=== PATIENT | female | born 1950 | race African-American/Black ===

== ENCOUNTER 2020-09-19 13:32 | Outpatient (REF) | payer SELFPAY | END 2020-09-19 13:33 | disposition home or self-care (01) | LOC: HO.HAP 13:32 | PROVIDERS: Visit Provider Internal Medicine | DX: Z46.1 Encounter for fitting and adjustment of hearing aid (principal) | CPT/HCPCS: V5267 ==

== ENCOUNTER 2020-11-18 15:37 | Outpatient (REF) | payer SELFPAY | END 2020-11-18 15:38 | disposition home or self-care (01) | LOC: HO.HAP 15:37 | PROVIDERS: Visit Provider Internal Medicine | DX: Z46.1 Encounter for fitting and adjustment of hearing aid (principal); H90.3 Sensorineural hearing loss, bilateral | CPT/HCPCS: V5267 ==

== ENCOUNTER 2020-11-18 16:02 | Outpatient (REF) | payer MEDICAID, SELFPAY | END 2020-11-18 16:03 | disposition home or self-care (01) | LOC: HO.HAP 16:02 | PROVIDERS: Visit Provider Internal Medicine | DX: Z46.1 Encounter for fitting and adjustment of hearing aid (principal); H90.3 Sensorineural hearing loss, bilateral | CPT/HCPCS: V5266 ==

== ENCOUNTER 2021-04-30 14:00 | Outpatient (REF) | payer MEDICARE, MEDICAID, SELFPAY ==
--- NOTE | 2021-05-01 09:35 | MHC.AU.HFU ---
Hearing Instrument Follow-Up- Binaural Date of Visit: 05/01/21 Right Ear: Claims Investigator: Phonak Model: Virto V 50-312 canal Serial Number: [id number] Repair Warranty: 11/19/2020 Loss and Damage Warranty: used Battery Size: 312 Color: Brown Type of Wax Guard: CeruStop Dispensed By: [facility] Date of Fittin01/13/2018 Left Ear: Claims Investigator: Phonak Model: Virto V 50-312 canal Serial Number: [id number] Repair Warranty: 11/19/2020 Loss and Damage Warranty: used Battery Size: 312 Color: Brown Type of Wax Guard: CeruStop Dispensed By: [facility] Date of Fittin01/13/2018 Follow-Up Summary: Patient reports that her hearing aids have not been working. When she replaces the battery, they work for a little while then stop. She has been replacing batteries frequently. Hearing aids inspected. There were wax guards in the vent holes, and no wax guards over the receivers; however, no wax had gotten inside the receivers. Placed hearing aids in dryer for several minutes. Hearing aids were turning on, but sounded much weaker than expected. They were sent to [facility] for repair. Patient was loaned a pair of Blurtt B90-SP (#[id number], [id number]). Recommendations: Patient will be contacted when materials have arrived. Diagnosis Code(s): Primary Diagnosis: H90.3 Bilateral Sensorineural Hearing Loss Signature: Provider: Heather Tsang, [facility]
== END 2021-04-30 14:01 | disposition home or self-care (01) ==
LOC: HO.HAP 14:00
PROVIDERS: Visit Provider Internal Medicine
DX: Z46.1 Encounter for fitting and adjustment of hearing aid (principal); H90.3 Sensorineural hearing loss, bilateral
CPT/HCPCS: 92593

== ENCOUNTER 2021-05-29 13:00 | Outpatient (REF) | payer MEDICARE, MEDICAID, SELFPAY | END 2021-05-29 13:01 | disposition home or self-care (01) | LOC: HO.HAP 13:00 | PROVIDERS: Visit Provider Internal Medicine | DX: Z46.1 Encounter for fitting and adjustment of hearing aid (principal); H90.3 Sensorineural hearing loss, bilateral | CPT/HCPCS: V5014 ==

== ENCOUNTER 2021-11-11 08:52 | Outpatient (REF) | payer MEDICARE, MEDICAID, SELFPAY | END 2021-11-11 08:53 | disposition home or self-care (01) | LOC: HO.HAP 08:52 | PROVIDERS: Visit Provider Internal Medicine | DX: Z46.1 Encounter for fitting and adjustment of hearing aid (principal); H90.3 Sensorineural hearing loss, bilateral | CPT/HCPCS: V5266 ==

== ENCOUNTER 2022-02-11 10:32 | Outpatient (REF) | payer MEDICARE, MEDICAID, SELFPAY | END 2022-02-11 10:33 | disposition home or self-care (01) | LOC: HO.HAP 10:32 | PROVIDERS: Visit Provider Internal Medicine | DX: Z46.1 Encounter for fitting and adjustment of hearing aid (principal); H90.3 Sensorineural hearing loss, bilateral | CPT/HCPCS: V5266 ==

== ENCOUNTER 2022-05-06 13:45 | Outpatient (REF) | payer MEDICARE, MEDICAID, SELFPAY ==
--- NOTE | 2022-05-07 08:03 | MHC.AU.HFU ---
Hearing Instrument Follow-Up- Binaural Date of Visit: 05/07/22 Right Ear: Associate Professor Of Economics: Phonak Model: Virto V 50-312 canal Serial Number: [id number] Repair Warranty: 11/19/2020 Loss and Damage Warranty: used Battery Size: 312 Type of Wax Guard: CeruStop Left Ear: Associate Professor Of Economics: Phonak Model: Virto V 50-312 canal Serial Number: [id number] Repair Warranty: 11/19/2020 Loss and Damage Warranty: used Battery Size: 312 Type of Wax Guard: CeruStop Follow-Up Summary: Patient reports the battery in the left hearing aid has not been lasting long. The length is different each time, but has ranged from hours to a few days. The right hearing aid is not having this issue. Both hearing aids were inspected and cleaned. They are both amplifying normally. The left side will be sent to [employer] for repair. She was provided with a loaner ([employer] B90-SP #[id number] w/size 2 slim tube and medium power dome). Recommendations: Patient will be contacted when materials have arrived. Dispensed 42 batteries Diagnosis Code(s): H90.3 Bilateral Sensorineural Hearing Loss Signature: Provider: Heather Tsang, CCC-A
== END 2022-05-06 13:46 | disposition home or self-care (01) ==
LOC: HO.HAP 13:45
PROVIDERS: Visit Provider Internal Medicine
DX: Z46.1 Encounter for fitting and adjustment of hearing aid (principal); H90.3 Sensorineural hearing loss, bilateral
CPT/HCPCS: 92593; V5266

== ENCOUNTER 2022-05-11 12:30 | Outpatient (REF) | payer MEDICARE, MEDICAID, SELFPAY ==
--- NOTE | ~2022-05-11 | MM_ITS ---
EXAMINATION: MM SCREENING DIGITAL BREAST TOMOSYNTHESIS, BILATERAL CLINICAL INFORMATION: Screening. Asymptomatic. COMPARISON: Mammography: 04/25/2015, 04/16/2015 TECHNIQUE: Digital breast tomosynthesis is performed in both the craniocaudal and mediolateral oblique views along with computer-aided detection (CAD). Synthesized 2D images are generated from the tomosynthesis. Technically challenging exam requiring 2 technologists for positioning and imaging. Exam tailored to patient capabilities. FINDINGS: There are scattered areas of fibroglandular density (ACR BI-RADS breast composition Category b). The submitted images tailored to patient capabilities demonstrate breast tissue parenchymal pattern with borders on heterogeneously dense. There is no significant mass or architectural abnormality or abnormal calcifications. Benign coarse calcification is present posterior upper left breast and central right breast. There are also benign vascular calcifications. The skin contours are smooth. No coarsening of the José's ligaments. MM/MM tomosynthesis screening BI IMPRESSION: -No mammographic evidence of malignancy. -Technically challenging exam tailored to patient capabilities. ASSESSMENT: BI-RADS 2: Benign RECOMMENDATION: Routine annual mammography screening. This patient's information was entered into a reminder system with a target due date for their next mammogram.
== END 2022-05-11 12:31 | disposition home or self-care (01) ==
LOC: HO.MAMMO 12:30
DX: Z12.31 Encounter for screening mammogram for malignant neoplasm of breast (principal)
CPT/HCPCS: 77063; 77067

== ENCOUNTER 2022-09-16 14:13 | Outpatient (REF) | payer MEDICARE, MEDICAID, SELFPAY | END 2022-09-16 14:14 | disposition home or self-care (01) | LOC: HO.HAP 14:13 | PROVIDERS: Visit Provider Internal Medicine | DX: Z46.1 Encounter for fitting and adjustment of hearing aid (principal); H90.3 Sensorineural hearing loss, bilateral | CPT/HCPCS: 99499; V5014; V5266 ==

== ENCOUNTER 2022-09-16 14:23 | Outpatient (REF) | payer SELFPAY | END 2022-09-16 14:24 | disposition home or self-care (01) | LOC: HO.HAP 14:23 | PROVIDERS: Visit Provider Internal Medicine | DX: Z46.1 Encounter for fitting and adjustment of hearing aid (principal); H90.3 Sensorineural hearing loss, bilateral | CPT/HCPCS: V5267 ==

== ENCOUNTER 2023-01-20 14:13 | Outpatient (REF) | payer MEDICARE, MEDICAID, SELFPAY | END 2023-01-20 14:14 | disposition home or self-care (01) | LOC: HO.HAP 14:13 | PROVIDERS: Visit Provider Internal Medicine | DX: Z46.1 Encounter for fitting and adjustment of hearing aid (principal); H90.3 Sensorineural hearing loss, bilateral | CPT/HCPCS: V5266 ==

== ENCOUNTER 2023-05-11 13:23 | Outpatient (REF) | payer MEDICARE, MEDICAID, SELFPAY ==
--- NOTE | 2023-05-12 12:48 | MHC.AU.HA3 ---
Hearing Instrument Follow-Up- Binaural Date of Visit: 05/11/23 Right Ear: Make, Model, Color, Serial Number: Allison Lopez V50-312 SN: [id number] Color: Brown Investment Executive Repair Warranty: 11/19/2020 Investment Executive Loss and Damage Warranty: USED Battery Size: 312 Type of Wax Guard: CeruStop Dispensed By: [facility] Date of Fittin01/13/2018 Left Ear: Make, Model, Color, Serial Number: Allison Lopez V50-312 SN: [id number] Color: Brown Investment Executive Repair Warranty: 11/09/2022 Investment Executive Loss and Damage Warranty: USED Battery Size: 312 Type of Wax Guard: CeruStop Dispensed By: [facility] Date of Fittin01/13/2018 Follow-Up Summary: Jagjit was scheduled for a 30-minute hearing aid problem appointment. However, she was insistent that she scheduled a hearing test and was extremely upset when discussing the need for a doctor's order, different appointment type for lira time, etc. She demanded that her hearing be tested today, called her PCP office to request the doctor's order, and was not understanding to the situation. Due to a cancellation, able to perform hearing test and hearing aid consultation (see separate reports). In the meantime, she reported her hearing aids were weak/muffled. Cleaned both hearing aids. Vacuumed microphones and ran through dehumidifier. Replaced both wax guards. The right hearing aid appeared to be working well; however, the left hearing aid was weak. Increased overall volume. Jagjit noted improvement in office. Due to the age of her current pair, recommend new hearing aids versus sending for repair. Jagjit was agreeable to using the hearing aids with these settings until new hearing aids arrive. However, a few hours after she left, she called to report that she was on her way back and demanded that loaners be programmed for her as her hearing aids continue to sound muffled. Coco (HIS plate grainer apprentice) was available to program loaners at that time. Jagjit has both the loaners and her own hearing aids. Recommendations: Please contact our clinic with any questions or concerns. Diagnosis Code(s): Primary Diagnosis: H90.3 Bilateral Sensorineural Hearing Loss Signature: Provider: Au. GradyD., [facility]
--- NOTE | 2023-05-12 12:48 | MHC.AU.MED ---
Medical Clearance for Hearing Instrumentation Date: 05/11/23 Patient Name: Jagjit Salter Date of : 1950 Primary Care Provider: Alonso Monzon MD We have seen your patient on 05/11/23 and have determined that they are a candidate for amplification (See accompanying report). Specifically, they would benefit from: Hearing aid use in both ears There is a statute that addresses Medical Evaluation Requirements prior to fitting a patient with a hearing aid. According to [place] statute 265 CMR:6.03(1), (a) General. Except as provided in 265 CMR 6.03(1)(b), a hearing screener shall not sell a hearing aid unless the prospective user has presented to the hearing screener a written statement signed by a licensed physician that states that the patient's hearing loss has been medically evaluated and the patient may be considered a candidate for a hearing aid. The medical evaluation must have taken place within the preceding six months. Please note: Due to the [place] Statute referenced above, we cannot accept a signature other than that of a licensed physician. MANAGER RESORT and [place] signatures cannot be accepted. I am in agreement with the above recommendation. There is no medical contraindication for hearing instrumentation. Physician Signature Date Physician Name (Printed)
--- NOTE | 2023-05-12 12:55 | MHC.AU.HA1 ---
Hearing Aid Evaluation Date of Visit: 05/11/23 Historical Information: Description of Hearing: Right Ear: Moderate sloping to profound sensorineural hearing loss Left Ear: Moderate sloping to severe sensorineural hearing loss Current personal amplification information: Phonak Virto V50-312 ITCs fit in December 2017 Summary: Jagjit's left hearing aid is weak/muffled. Due to the age of her current pair, discussed recommendation to replace both hearing aids versus have left hearing aid repaired. Jagjit opted to stay with the same style of hearing with a 312 battery. Although right ear has poor speech discrimination ability, will continue with binaural fitting due to lack of binaural interference as evidenced through binaural speech discrimination testing and to maintain auditory stimulation of right ear. Hearing Aid Prescription: Based on the individual?s shared listening needs, communication environments, dexterity, desire for connectivity, and personal preferences, the following prescription for amplification has been made: Right ear: Make, Model, Color: Phonak Virto P70-312 ITC Color: Brown Battery Size: 312 Left ear: Left ear prescription to be same as Right Hearing Aid above: Make, Model, Color: Phonak Virto P70-312 ITC Color: Brown Battery Size: 312 Plan of Care: Patient wishes to purchase hearing aids as prescribed Action Taken/Action Needed: Earmold Impressions Taken (in hold drawer). Medical Clearance to be requested from PCP/ENT. Hearing aids will be ordered once medical clearance is received. Hearing Instrument Fitting to be scheduled when materials arrive Primary Diagnosis: H90.3 Bilateral Sensorineural Hearing Loss Signature: Provider: Rashida Rasmussen, [facility]
== END 2023-05-11 13:24 | disposition home or self-care (01) ==
LOC: HO.HAP 13:23
PROVIDERS: Visit Provider Internal Medicine
DX: Z46.1 Encounter for fitting and adjustment of hearing aid (principal); H90.3 Sensorineural hearing loss, bilateral
CPT/HCPCS: 92557; 92591; 92593; V5266; V5275

== ENCOUNTER 2023-05-11 14:34 | Outpatient (REF) | payer SELFPAY | END 2023-05-11 14:35 | disposition home or self-care (01) | LOC: HO.HAP 14:34 | PROVIDERS: Visit Provider Internal Medicine | DX: H91.93 Unspecified hearing loss, bilateral (principal) | CPT/HCPCS: V5267 ==

== ENCOUNTER 2023-07-25 15:54 | Outpatient (REF) | payer MEDICARE, MEDICAID, SELFPAY ==
--- NOTE | 2023-07-26 09:48 | MHC.AU.HA2 ---
Hearing Instrument Fitting- Adult- Binaural Date of Visit: 07/25/23 Hearing Instruments Dispensed: Right Ear: Make, Model, Color, Serial Number: Phonak Virto P70-312 ITC SN: [id number] Color: Brown Supplier Quality Engineering Manager Repair Warranty: 09/18/2026 Supplier Quality Engineering Manager Loss and Damage Warranty: 09/18/2026 [facility] Service Plan: 07/25/2024 Battery Size: 312 Type of Wax Guard: CeruStop Left Ear: Make, Model, Color, Serial Number: Phonak Virto P70-312 ITC SN: [id number] Color: Brown Supplier Quality Engineering Manager Repair Warranty: 09/18/2026 Supplier Quality Engineering Manager Loss and Damage Warranty: 09/18/2026 [facility] Service Plan: 07/25/2024 Battery Size: 312 Type of Wax Guard: CeruStop Summary of Fitting: The front office called Jagjit to reschedule her fitting appointment as the original provider need to leave due to illness. However, Jagjit would not accept being rescheduled and reported she was planning to come to the appointment regardless as the loaners are reportedly not working and she needs her new hearing aids. Jagjit arrived and was fit in between other patients. Therefore, due to time constraints, real ear measures could not be performed. Jagjit returned the loaners which were in good working order - unclear why she reported they were not working. Ran feedback analyzer on her new hearing aids. Adjusted per Jagjit's report for balance. Discussed time need to acclimate to new hearing aids. Instructed on volume control use. Did not have time to discuss bluetooth or pair to cell phone. As a long-time hearing aid user, Jagjit was comfortable and familiar with general maintenance and insertion/removal. She will call if problems with fit or sound quality arise. Recommendations: Please call our clinic with any questions or concerns. Diagnosis Code(s): Primary Diagnosis: H90.3 Bilateral Sensorineural Hearing Loss Signature: Provider: Rashida Rasmussen, [facility]
== END 2023-07-25 15:55 | disposition home or self-care (01) ==
LOC: HO.HAP 15:54
PROVIDERS: Visit Provider Internal Medicine
DX: Z46.1 Encounter for fitting and adjustment of hearing aid (principal); H90.3 Sensorineural hearing loss, bilateral
CPT/HCPCS: V5011; V5160; V5259

== ENCOUNTER 2023-10-05 13:47 | Outpatient (REF) | payer MEDICARE, MEDICAID, SELFPAY | END 2023-10-05 13:48 | disposition home or self-care (01) | LOC: HO.HAP 13:47 | PROVIDERS: Visit Provider Internal Medicine | DX: Z46.1 Encounter for fitting and adjustment of hearing aid (principal); H90.3 Sensorineural hearing loss, bilateral | CPT/HCPCS: V5266 ==

== ENCOUNTER 2023-10-05 15:22 | Outpatient (REF) | payer SELFPAY | END 2023-10-05 15:23 | disposition home or self-care (01) | LOC: HO.HAP 15:22 | PROVIDERS: Visit Provider Internal Medicine | DX: Z46.1 Encounter for fitting and adjustment of hearing aid (principal); H90.3 Sensorineural hearing loss, bilateral | CPT/HCPCS: V5267 ==

== ENCOUNTER 2024-01-05 13:34 | Outpatient (REF) | payer MEDICARE, MEDICAID, SELFPAY | END 2024-01-05 13:35 | disposition home or self-care (01) | LOC: HO.HAP 13:34 | PROVIDERS: Visit Provider Internal Medicine | DX: Z46.1 Encounter for fitting and adjustment of hearing aid (principal); H90.3 Sensorineural hearing loss, bilateral | CPT/HCPCS: V5266 ==

== ENCOUNTER 2024-02-03 14:12 | Outpatient (REF) | payer MEDICARE, MEDICAID, SELFPAY | END 2024-02-03 14:13 | disposition home or self-care (01) | LOC: HO.HAP 14:12 | PROVIDERS: Visit Provider Internal Medicine | DX: Z13.89 Encounter for screening for other disorder (principal) ==

== ENCOUNTER 2024-03-15 13:51 | Outpatient (REF) | payer SELFPAY | END 2024-03-15 13:52 | disposition home or self-care (01) | LOC: HO.HAP 13:51 | PROVIDERS: Visit Provider Internal Medicine | DX: Z46.1 Encounter for fitting and adjustment of hearing aid (principal); H90.3 Sensorineural hearing loss, bilateral | CPT/HCPCS: V5267 ==

== ENCOUNTER 2024-09-18 12:18 | Outpatient (REF) | payer MEDICARE, MEDICAID, SELFPAY ==
--- OUTSIDE RECORDS SUMMARY | 2024-09-18 13:12 | XMS_ITS | Encounter Summary ---
Author Organization [facility] Address [address] [place] [address] Care Team Providers Care Truckman Name Role Phone Unavailable Primary Care Provider Unavailabl e Reason for Visit * Reason Comments Dental Pain PAIN WITH DENTURE Encounter Details Date Type Department Care Team (Late st Contact Info) Description 09/05/2024 1:20 PM EST Office Visit [facility] [address] [place] [phone] DuncanAlondra [address] [place] [address] Encounter for dental examination (Primary Dx) Social History Tobacco Use Types Packs/Day Years Used Date Smoking Tobacco: Never Assessed Comments Unknown Sex and Gender Information Value Date Recorded Sex Assigned at Not on file Legal Sex Female 8:12 AM PDT Gender Identity Not on file Sexual Orientation Not on file COVID-19 Exposure Response Date Recorded In the last 10 days, have yo u been in contact with someone who was confirmed or suspected to have Coronavirus/COVID-19? No / Unsure 09/05/2024 12:56 PM EST documented as of this encounter Progress Notes * Alondra Song - 09/05/2024 2:14 PM EST Limited Exam SUBJECTIVE: Jagjit Salter, 74 year old female, presents alone pt only had discussion with Dr French about previous diagnosis Bone Drier Operator: No Chief Complaint Patient presents with Dental Pain PAIN WITH DENTURE Description of pain: none OBJECTIVE: RMHx: NO CHANGE Vitals: There were no vitals filed for this visit. Dx: No diagnosis found. Dx Details (Clinical Decision-Making): DR MARTINES NEW DENTURE PT REFUSED, DR MARTINES MTH RINSE PT REFUSED, DR MCWILLIAMS PT NEEDS BIOPSY PT MISSED [address] BE, DR MARTINES PT FOLLOW THUR WITH BIOPSY UPPER RIGHT PLAN:BIOPSY Informed Consent/PARQ (Procedure, Alternatives, Risks, Questions): Discussed limited exam findings and treatment needs, questions answered. Patient confirms informed consent, verbalizes understandingof limited exam findings and treatment plan. Pt informed today's exam was a limited exam, and comprehensive exam was not done today. Treatment needs may exist in other areas which were not examined today. Advised patient seek comprehensive care and return for evaluation of other areas as soon as possible. Dental procedures in this visit There are no dental procedures in this visit. Treatment Completed: BIOPSY Referral: No orders of the following type(s) were placed in this encounter: Referral. Rx: No orders of the defined types were placed in this encounter. Behavior: Excellent DA: ANUP NV: BIOPSY documented in this encounter Plan of Treatment Upcoming Encounters Date Type Department Care Team (Late st Contact Info) Description 09/21/2024 3:00 PM EST Office Visit [facility] [address] [place] [phone] [place] [address] [place] [phone] 10/24/2024 4:00 PM EST Office Visit [facility] [address] [place] [phone] Saji Fernández DDS [address] [place] [phone] Scheduled Orders Name Type Priority Associated Diagnoses Order Schedule CASE PRESENTATION SUBS DTL & EXTENSIVE TX PLN Dental Procedures Routine 1 Occurrences starting 09/05/2024 documented as of this encounter Procedures Procedure Name Priority Date/Time Associated Diagnosis Comments CASE PRESENTATION SUBS DTL & EXTENSIVE TX PLN Routine 09/05/2024 1:20 PM EST Encounter for dental examination documented in this encounter Visit Diagnoses Diagnosis Encounter for dental examination- Primary Dental examination documented in this encounter
--- OUTSIDE RECORDS SUMMARY | 2024-09-18 13:12 | XMS_ITS | Clinical Summary ---
Author Organization [facility] Address [address] [place] [address] Care Team Providers Care Scientific Advisor Name Role Phone Unavailable Primary Care Provider Unavailabl e Source Comments PLEASE NOTE, if this patient is a minor, it may be UNLAWFUL to discuss sensitive information that is contained in these records (such as FAMILY PLANNING, MENTAL HEALTH or SUBSTANCE ABUSE) with the minor patient's parent or other person without the patient's specific authorization.[facility] Medications chlorhexidine (PERIDEX) 0.12 % solutionIndicati ons:Encounter for dental examination Swish and spit 15 mL 2 (two) times daily for 14 days 420 mL 08/31/2024 Active Problems No known active problems Encounters Date Type Department Care Team Description 09/05/2024 1:20 PM EST Office Visit [facility] [place] [phone] Alondra Song Encounter for dental examination (Primary Dx) 09/05/2024 Travel 08/31/2024 Dental Interim Note [facility] [address] [place] [phone] Etienne Mehta DDS Encounter for dental examination (Primary Dx) 08/29/2024 1:00 PM EST Office Visit [facility] [place] [phone] Amaury Ordoñez DDS Ill-fitting dentures (Primary Dx) 08/29/2024 Travel from Last 3 Months Social History Tobacco Use Types Packs/Day Years Used Date Smoking Tobacco: Never Assessed Comments Unknown Sex and Gender Information Value Date Recorded Sex Assigned at Not on file Legal Sex Female 8:12 AM PDT Gender Identity Not on file Sexual Orientation Not on file COVID-19 Exposure Response Date Recorded In the last 10 days, have latricia u been in contact with someone who was confirmed or suspected to have Coronavirus/COVID-19? No / Unsure 09/05/2024 12:56 PM EST Last Filed Vital Signs Vital Sign Reading Time Taken Comments Blood Pressure 131/80 08/29/2024 1:17 PM EST Pulse 63 08/29/2024 1:17 PM EST Temperature - - Respiratory Rate - - Oxygen Saturation - - Inhaled Oxygen Concentration - - Weight - - Height - - Body Mass Index - - Plan of Treatment Upcoming Encounters Date Type Department Care Team (Late st Contact Info) Description 09/21/2024 3:00 PM EST Office Visit [facility] [address] [place] [phone] Pop [place] [address] [place] [address] 10/24/2024 4:00 PM EST Office Visit [facility] [address] [place] [phone] Saji Fernández DDS [address] [place] [address] Health Maintenance Due Date Last Done Comments Hepatitis C Screening 1950 Lipid Screening 1950 Tobacco Screening 1950 Medicare Annual Wellness Visit 1969 Imm-DTaP/Tdap/Td (1 - Tdap) 1970 Breast Cancer Screening (Mammogram) 1991 CT Colonography 1996 Colonoscopy 1996 Colorectal Cancer Screening 1996 FIT/gFOBT 1996 Fecal DNA 1996 Flexible Sigmoidoscopy 1996 Imm-Pneumococcal 65+ (1 of 1 - PCV) 2001 Imm-Zoster, Recombinant (1 of 2) 2001 Bone Density Screening 2016 Falls Prevention 2016 [id number] (1 - 2023- season) 2024 Imm-Influenza (#1) 2024 Alcohol and Drug Screen 08/22/2024 Depression Annual Screen 08/22/2024 Hypertension Screening (#1) 08/29/2025 Procedures Procedure Name Priority Date/Time Associated Diagnosis Comments CASE PRESENTATION SUBS DTL & EXTENSIVE TX PLN Routine 09/05/2024 1:20 PM EST Encounter for dental examination LIMITED ORAL EVALUATION - PROBLEM FOCUSED Routine 08/29/2024 1:00 PM EST Ill-fitting dentures from Last 3 Months Insurance [place]
--- OUTSIDE RECORDS SUMMARY | 2024-09-18 13:12 | XMS_ITS | Encounter Summary ---
Author Organization [facility] Address [address] [place] [address] Care Team Providers Care Business Process Engineer Name Role Phone Yo Chambers MD Primary Care Provider [phone] Encounter Details Date Type Department Care Team (Late st Contact Info) Description 08/17/2024 Lab Requisition [facility] Lab [address] [facility] [employer] [place] [address] Yo Chambers MD [address] [place] [address] Unspecified atrial fibrillation (CMS/HCC) Social History Tobacco Use Types Packs/Day Years Used Date Smoking Tobacco: Never Smokeless Tobacco: Never Alcohol Use Standard Drinks/Week Comments No 0 (1 standard drink = 0.6 oz pur e alcohol) Sex and Gender Information Value Date Recorded Sex Assigned at Not on file Gender Identity Not on file Sexual Orientation Not on file documented as of this encounter Plan of Treatment Not on file documented as of this encounter Procedures Procedure Name Priority Date/Time Associated Diagnosis Comments PROTHROMBIN TIME WITH INR Routine 08/20/2024 6:33 AM EST Unspecified atrial fibrillation (CMS/HCC) documented in this encounter Results * (ABNORMAL) Prothrombin time with INR (08/20/2024 6:33 AM EST) Protime 26.8(H) 10.6 - 13.9 sec LAB COAGULATION METHOD 08/20/2024 10:18 AM EST [facility] INR 2.1 LAB COAGULATION METHOD 08/20/2024 10:18 AM EST [facility] Blood Venous blood specimen / Unknown Venipuncture / Unknown 08/20/2024 6:33 AM EST 08/20/2024 9:55 AM EST Yo Chambers MD LAB BLOOD ORDERABL ES [facility] [address] [place] [address], documented in this encounter Visit Diagnoses Diagnosis Unspecified atrial fibrillation (CMS/HCC) documented in this encounter Care Teams Business Process Engineer Relationship Specialty Start Date End Date Yo Chambers MD [address] [place] [address] PCP - General 05/19/21 documented as of this encounter
--- OUTSIDE RECORDS SUMMARY | 2024-09-18 13:12 | XMS_ITS | Encounter Summary ---
Author Organization [facility] Address [address] [place] [address] Care Team Providers Care Steaming Machine Operator Name Role Phone Unavailable Primary Care Provider Unavailabl e Encounter Details Date Type Department Care Team (Latest Contact Info) Description 09/05/2024 Travel Social History Tobacco Use Types Packs/Day Years [...] PM EST documented as of this encounter Plan of Treatment Upcoming Encounters Date Type Department Care Team (Late st Contact Info) Description 09/21/2024 3:00 PM EST Office Visit [facility] [address] [place] [phone] Pop [place] [address] [place] [address] 10/24/2024 4:00 PM EST Office Visit [facility] [address] [place] [phone] EscobarSaji Silver DDS [address] [place] [address] documented as of this encounter Visit Diagnoses Not on filedocumented in this encounter
--- OUTSIDE RECORDS SUMMARY | 2024-09-18 13:12 | XMS_ITS | Encounter Summary ---
Author Organization [facility] Address [address] [place] [address] Care Team Providers Care Nurse Consultant Name Role Phone Unavailable Primary Care Provider Unavailabl e Encounter Details Date Type Department Care Team (Latest Contact Info) Description 08/29/2024 Travel Social History Tobacco Use Types Packs/Day [...] suspected to have Coronavirus/COVID-19? No / Unsure 08/29/2024 1:00 PM EST documented as of this encounter Plan of Treatment Upcoming Encounters Date Type Department Care Team (Late st Contact Info) Description 09/21/2024 3:00 PM EST Office Visit [facility] Dental [address] [place] [phone] Pop [place] [address] [place] [address] 10/24/2024 4:00 PM EST Office Visit [facility] Dental [address] [place] [phone] EscobarSaji Silver DDS [address] [place] [address] documented as of this encounter Visit Diagnoses Not on filedocumented in this encounter
--- OUTSIDE RECORDS SUMMARY | 2024-09-18 13:12 | XMS_ITS | Encounter Summary ---
Author Organization [facility] Address [address] [place] [address] Care Team Providers Care Commodities Broker Name Role Phone Yo Chambers MD Primary Care Provider +1- [phone] Encounter Details Date Type Department Care Team (Late st Contact Info) Description 09/15/2024 Lab Requisition [facility] - Main Lab [address] [facility] [employer] [address] Yo Chambers MD [address] [place] [address] Unspecified atrial fibrillation (CMS/HCC) Social History Tobacco [...] Diagnosis Comments PROTHROMBIN TIME WITH INR Routine 09/17/2024 5:34 AM EST Unspecified atrial fibrillation (CMS/HCC) documented in this encounter Results * (ABNORMAL) Prothrombin time with INR (09/17/2024 5:34 AM EST) Protime 23.9(H) 10.6 - 13.9 sec LAB COAGULATION METHOD 09/17/2024 11:17 AM EST [facility] LAB INR 1.9 LAB COAGULATION METHOD 09/17/2024 11:17 AM EST [facility] LAB Blood Venous blood specimen / Unknown Venipuncture / Unknown 09/17/2024 5:34 AM EST 09/17/2024 10:39 AM EST Yo Chambers MD LAB BLOOD ORDERABL ES [facility] ([facility]) [facility] LAB [address] [place] [address], documented in this encounter Visit Diagnoses Diagnosis Unspecified atrial fibrillation (CMS/HCC) documented in this encounter Care Teams Commodities Broker Relationship Specialty Start Date End Date Yo Chambers MD [address] [place] [address] PCP - General 05/19/21 documented as of this encounter
--- OUTSIDE RECORDS SUMMARY | 2024-09-18 13:12 | XMS_ITS | Encounter Summary ---
Author Organization [facility] Address [address] [place] [address] Care Team Providers Care Casting Wheel Operator Helper Name Role Phone Yo Chambers MD Primary Care Provider +1- [phone] Encounter Details Date Type Department Care Team (Late st Contact Info) Description 08/11/2024 Lab Requisition [facility] - Main Lab 299 [facility] [employer] [address] Yo Chambers MD [address] [place] [address] Unspecified atrial fibrillation (CMS/HCC) Social History Tobacco [...] Diagnosis Comments PROTHROMBIN TIME WITH INR Routine 08/13/2024 6:11 AM EST Unspecified atrial fibrillation (CMS/HCC) documented in this encounter Results * (ABNORMAL) Prothrombin time with INR (08/13/2024 6:11 AM EST) Protime 23.8(H) 10.6 - 13.9 sec LAB COAGULATION METHOD 08/13/2024 12:17 PM EST [facility] LAB INR 1.9 LAB COAGULATION METHOD 08/13/2024 12:17 PM EST [facility] LAB Blood Venous blood specimen / Unknown Venipuncture / Unknown 08/13/2024 6:11 AM EST 08/13/2024 11:54 AM EST Yo Chambers MD LAB BLOOD ORDERABL ES [facility] ([facility]) [facility] LAB [address] [place] [address], documented in this encounter Visit Diagnoses Diagnosis Unspecified atrial fibrillation (CMS/HCC) documented in this encounter Care Teams Casting Wheel Operator Helper Relationship Specialty Start Date End Date Yo Chambers MD [address] [place] [address] PCP - General 05/19/21 documented as of this encounter
--- OUTSIDE RECORDS SUMMARY | 2024-09-18 13:12 | XMS_ITS | Encounter Summary ---
Author Organization [facility] Address [address] [place] [address] Care Team Providers Care Substation Operator Conversion Name Role Phone Yo Chambers MD Primary Care Provider +1- [phone] Encounter Details Date Type Department Care Team (Late st Contact Info) Description 07/21/2024 Lab Requisition [facility] - Main Lab [address] [place] [address] Yo Chambers MD [address] [place] [address] Chronic atrial fibrillation, unspecified (CMS/HCC); Unspecified atrial fibrillation (CMS/HCC) Social History Tobacco [...] Diagnosis Comments PROTHROMBIN TIME WITH INR Routine 07/23/2024 6:45 AM EST Chronic atrial fibrillation, unspecified (CMS/HCC) Unspecified atrial fibrillation (CMS/HCC) documented in this encounter Results * (ABNORMAL) Prothrombin time with INR (07/23/2024 6:45 AM EST) Protime 25.6(H) 10.6 - 13.9 sec LAB COAGULATION METHOD 07/23/2024 12:11 PM EST [facility] INR 2.0 LAB COAGULATION METHOD 07/23/2024 12:11 PM EST [facility] LAB Blood Venous blood specimen / Unknown Venipuncture / Unknown 07/23/2024 6:45 AM EST 07/23/2024 10:59 AM EST Yo Chambers MD LAB BLOOD ORDERABL ES [facility] LAB [address] [place], [place] [address] [phone] documented in this encounter Visit Diagnoses Diagnosis Chronic atrial fibrillation, unspecified (CMS/HCC) Unspecified atrial fibrillation (CMS/HCC) documented in this encounter Care Teams Substation Operator Conversion Relationship Specialty Start Date End Date Yo Chambers MD [address] [place] [address] PCP - General 05/19/21 documented as of this encounter
--- OUTSIDE RECORDS SUMMARY | 2024-09-18 13:12 | XMS_ITS | Encounter Summary ---
Author Organization [facility] Address [address] [place] [address] Care Team Providers Care Studio Associate Name Role Phone Unavailable Primary Care Provider Unavailabl e Encounter Details Date Type Department Care Team (Late st Contact Info) Description 08/31/2024 Dental Interim Note [place] [address] [place] [phone] Etienne Mehta, [facility] [address] [place] [address] Encounter for dental examination (Primary Dx) Social [...] 3:00 PM EST Office Visit [facility] [address] [place] [address] [place] [address] [place] [address] 10/24/2024 4:00 PM EST Office Visit [facility] [place] [phone] Saji Fernández, DDS [address] [place] [address] documented as of this encounter Visit Diagnoses Diagnosis Encounter for dental examination- Primary Dental examination documented in this encounter
--- OUTSIDE RECORDS SUMMARY | 2024-09-18 13:12 | XMS_ITS | Encounter Summary ---
Author Organization [facility] Address [address] [place] [address] Care Team Providers Care Supervisor [employer] Name Role Phone Yo Chambers MD Primary Care Provider +1- [phone] Encounter Details Date Type Department Care Team (Late st Contact Info) Description 07/07/2024 Lab Requisition [facility] - Main Lab [address] [facility] [place] [address] Yo Chambers MD [address] [place] [address] Hyperlipidemia, unspecified; Chronic kidney disease, stage 3 unspecified (CMS/HCC); Unspecified atrial fibrillation (CMS/HCC) Social [...] Diagnosis Comments PROTHROMBIN TIME WITH INR Routine 07/09/2024 6:04 AM EST Hyperlipidemia, unspecified Chronic kidney disease, stage 3 unspecified (CMS/HCC) Unspecified atrial fibrillation (CMS/HCC) COMPLETE BLOOD COUNT Routine 07/09/2024 6:04 AM EST Hyperlipidemia, unspecified Chronic kidney disease, stage 3 unspecified (CMS/HCC) Unspecified atrial fibrillation (CMS/HCC) THYROID STIMULATING HORMONE Routine 07/09/2024 6:04 AM EST Hyperlipidemia, unspecified Chronic kidney disease, stage 3 unspecified (CMS/HCC) Unspecified atrial fibrillation (CMS/HCC) COMPREHENSIVE METABOLIC PANEL Routine 07/09/2024 6:04 AM EST Hyperlipidemia, unspecified Chronic kidney disease, stage 3 unspecified (CMS/HCC) Unspecified atrial fibrillation (CMS/HCC) documented in this encounter Results * Thyroid stimulating hormone (07/09/2024 6:04 AM EST) TSH 1.92 0.40 - 4.00 mcIU/mL LAB CHEMISTRY METHOD 07/09/2024 11:55 AM EST [facility] LAB Blood Venous blood specimen / Unknown Venipuncture / Unknown 07/09/2024 6:04 AM EST 07/09/2024 10:34 AM EST Yo Chambers MD LAB BLOOD ORDERABL ES [facility] LAB [address] [place] [address], * (ABNORMAL) Comprehensive metabolic panel (07/09/2024 6:04 AM EST) Pathologist [facility] Sodium 143 133 - 145 mmol/L LAB CHEMISTRY METHOD 07/09/2024 1:06 PM [facility] Potassium 4.1 3.5 - 5.5 mmol/L LAB CHEMISTRY METHOD 07/09/2024 1:06 PM [facility] Chloride 110 96 - 110 mmol/L LAB CHEMISTRY METHOD 07/09/2024 1:06 PM [facility] CO2 23 21 - 32 mmol/L LAB CHEMISTRY METHOD 07/09/2024 1:06 PM [facility] Anion Gap 10 3 - 11 LAB CHEMISTRY METHOD 07/09/2024 1:06 PM [facility] Glucose 117(H) 70 - 100 mg/dL LAB CHEMISTRY METHOD 07/09/2024 1:06 PM [facility] BUN 11 5 - 25 mg/dL LAB CHEMISTRY METHOD 07/09/2024 1:06 PM [facility] Creatinine 0.95 0.50 - 1.10 mg/dL LAB CHEMISTRY METHOD 07/09/2024 1:06 PM [facility] eGFR 63 >=60 mL/min/1. 73m2 LAB CHEMISTRY METHOD 07/09/2024 1:06 PM [facility] LAB Comment:Calculation based on the??Chronic Kidney Disease Epidemiology Collaboration (CKD-EPI) equation refit??without adjustment for race. BUN/Creatinine Ratio 11.6 LAB CHEMISTRY METHOD 07/09/2024 1:06 PM [facility] Calcium 8.7 8.5 - 10.5 mg/dL LAB CHEMISTRY METHOD 07/09/2024 1:06 PM [facility] AST (SGOT) 20 10 - 42 unit/L LAB CHEMISTRY METHOD 07/09/2024 1:06 PM [facility] ALT (SGPT) 27 10 - 60 unit/L LAB CHEMISTRY METHOD 07/09/2024 1:06 PM [facility] Alkaline Phosphatase 77 42 - 121 unit/L LAB CHEMISTRY METHOD 07/09/2024 1:06 PM [facility] Total Protein 5.6(L) 6.0 - 8.0 g/dL LAB CHEMISTRY METHOD 07/09/2024 1:06 PM [facility] Albumin 2.8(L) 3.2 - 5.0 g/dL LAB CHEMISTRY METHOD 07/09/2024 1:06 PM [facility] Total Bilirubin 0.3 0.0 - 1.4 mg/dL LAB CHEMISTRY METHOD 07/09/2024 1:06 PM [facility] Blood Venous blood specimen / Unknown Venipuncture / Unknown 07/09/2024 6:04 AM EST 07/09/2024 10:34 AM EST Yo Chambers MD LAB BLOOD ORDERABL ES [facility] LAB [address] [place] [address], * (ABNORMAL) Complete blood count (07/09/2024 6:04 AM EST) [facility] Signature WBC 5.0 4.8 - 10.8 K/mcL LAB HEMETOLOGY METHOD 07/09/2024 11:27 AM [facility] RBC 3.60(L) 3.80 - 4.80 M/mcL LAB HEMETOLOGY METHOD 07/09/2024 11:27 AM [facility] Hemoglobin 11.4(L) 11.5 - 16.0 g/dL LAB HEMETOLOGY METHOD 07/09/2024 11:27 AM [facility] Hematocrit 35.4 35.0 - 47.0 % LAB HEMETOLOGY METHOD 07/09/2024 11:27 AM [facility] MCV 98.3(H) 79.0 - 98.0 FL LAB HEMETOLOGY METHOD 07/09/2024 11:27 AM [facility] MCH 31.7 27.0 - 32.0 pcg LAB HEMETOLOGY METHOD 07/09/2024 11:27 AM [facility] MCHC 32.2 32.0 - 37.0 g/dL LAB HEMETOLOGY METHOD 07/09/2024 11:27 AM EST [facility] RDW 14.6 11.0 - 15.0 % LAB HEMETOLOGY METHOD 07/09/2024 11:27 AM [facility] Platelets 228 130 - 400 K/mcL LAB HEMETOLOGY METHOD 07/09/2024 11:27 AM [facility] MPV 11.1(H) 7.0 - 11.0 FL LAB HEMETOLOGY METHOD 07/09/2024 11:27 AM [facility] NRBC 0.0 <1.0 % LAB HEMETOLOGY METHOD 07/09/2024 11:27 AM EST [facility] LAB NRBC Absolute 0.00 <0.10 K/mcL LAB HEMETOLOGY METHOD 07/09/2024 11:27 AM EST [facility] LAB Blood Venous blood specimen / Unknown Venipuncture / Unknown 07/09/2024 6:04 AM EST 07/09/2024 10:40 AM EST Yo Chambers MD LAB BLOOD ORDERABL ES Performing Organization Address City/[facility]/ZIP Co de Phone Number [facility] [address] [place] [address], * (ABNORMAL) Prothrombin time with INR (07/09/2024 6:04 AM EST) Protime 18.6(H) 10.6 - 13.9 sec LAB COAGULATION METHOD 07/09/2024 11:32 AM EST [facility] INR 1.5 LAB COAGULATION METHOD 07/09/2024 11:32 AM EST [facility] Blood Venous blood specimen / Unknown Venipuncture / Unknown 07/09/2024 6:04 AM EST 07/09/2024 10:34 AM EST Yo Chambers MD LAB BLOOD ORDERABL ES [facility] [address] [place] [address], [place] [phone] documented in this encounter Visit Diagnoses Diagnosis Hyperlipidemia, unspecified Chronic kidney disease, stage 3 unspecified (CMS/HCC) Unspecified atrial fibrillation (CMS/HCC) documented in this encounter Care Teams Supervisor [employer] Relationship Specialty Start Date End Date Yo Chambers MD [address] [place] [phone] PCP - General 05/19/21 documented as of this encounter
--- OUTSIDE RECORDS SUMMARY | 2024-09-18 13:12 | XMS_ITS | Clinical Summary ---
Author Organization [address] Address [address] [place] [address] Phone Care Team Providers Care Oyster Culler Name Role Phone Yo Chambers MD Primary Care Provider +1- [phone] Medications No known medications Encounters Date Type Department Care Team Description 09/15/2024 Lab Requisition [facility] Lab [address] [place] [phone] Yo Chambers MD Unspecified atrial fibrillation (CMS/HCC) 09/12/2024 Lab Requisition [facility] Lab [address] [place] [phone] Yo Chambers MD Unspecified atrial fibrillation (CMS/HCC) 09/08/2024 Lab Requisition [facility] Lab [address] [place] [phone] Yo Chambers MD Unspecified atrial fibrillation (CMS/HCC) 08/31/2024 Lab Requisition [facility] Lab [address] [place] [phone] Yo Chambers MD Unspecified atrial fibrillation (CMS/HCC) 08/24/2024 Lab Requisition [facility] Lab [address] [place] [phone] Yo Chambers MD Unspecified atrial fibrillation (CMS/HCC) 08/17/2024 Lab Requisition [facility] Lab [address] [place] [phone] Yo Chambers MD Unspecified atrial fibrillation (CMS/HCC) 08/11/2024 Lab Requisition [facility] Lab [address] [place] [phone] Yo Chambers MD Unspecified atrial fibrillation (CMS/HCC) 08/03/2024 Lab Requisition [facility] Lab [address] [place] [phone] Yo Chambers MD Unspecified atrial fibrillation (CMS/HCC) 08/01/2024 Telephone [facility] Cardiology [address] [place] [address] Quang Barrios MD Foot Swelling (swelling) 07/28/2024 Lab Requisition [facility] Lab [address] [place] [phone] Yo Chambers MD Unspecified atrial fibrillation (CMS/HCC) 07/21/2024 Lab Requisition [facility] Lab [address] [place] [phone] Yo Chambers MD Chronic atrial fibrillation, unspecified (CMS/HCC); Unspecified atrial fibrillation (CMS/HCC) 07/13/2024 Lab Requisition [facility] Lab [address] [place] [phone] Yo Chambers MD Unspecified atrial fibrillation (CMS/HCC) 07/07/2024 Lab Requisition [facility] Lab [address] [place] [phone] Yo Chambers MD Hyperlipidemia, unspecified; Chronic kidney disease, stage 3 unspecified (CMS/HCC); Unspecified atrial fibrillation (CMS/HCC) 06/29/2024 Lab Requisition [facility] Main Lab [address] [place] [phone] Yo Chambers MD Unspecified atrial fibrillation (CMS/HCC) 06/29/2024 Lab Requisition [facility] Lab [address] [place] [address] Yo Chambers MD Unspecified atrial fibrillation (CMS/HCC) 06/23/2024 Lab Requisition [facility] Lab [address] [place] [address] Yo Chambers MD Chronic atrial fibrillation, unspecified (CMS/HCC); Unspecified atrial fibrillation (CMS/HCC) from Last 3 Months Social History Tobacco Use Types Packs/Day Years Used Date Smoking Tobacco: Never Smokeless Tobacco: Never Alcohol Use Standard Drinks/Week Comments No 0 (1 standard drink = 0.6 oz pur e alcohol) Sex and Gender Information Value Date Recorded Sex Assigned at Not on file Gender Identity Not on file Sexual Orientation Not on file Obstetrics History Last Filed Vital Signs Vital Sign Reading Time Taken Comments Blood Pressure 120/70 12/02/2023 2:24 PM EDT Sit ting R Arm Pulse 60 12/02/2023 2:24 PM EDT Temperature - - Respiratory Rate - - Oxygen Saturation - - Inhaled Oxygen Concentration - - Weight 127 kg (279 lb) 11/30/2022 3:49 PM EDT Height 170.2 cm (5' 7 ) 11/30/2022 3:49 PM EDT Body Mass Index 43.7 11/30/2022 3:49 PM EDT Plan of Treatment Health Maintenance Due Date Last Done Comments Breast Cancer Screening 1950 Pneumococcal Vaccine: 65+ Years (1 of 2 - PCV) 1957 Zoster Vaccines (1 of 2) 2001 RSV Immunization Patients 60 + Years Old (1 - Risk 60-74 years 1-dose series) 2011 DTaP,Tdap,and Td Vaccines (2 - Tdap) 07/28/2021 07/28/2011 Cholesterol Screening (Lipid Panel) 07/31/2022 Colorectal Cancer Screening: Colonoscopy 07/31/2022 Depression Screening 07/31/2022 Falls Risk Assessment 07/31/2022 Hepatitis C Screening 07/31/2022 Medicare Annual Wellness Visit 07/31/2022 Osteoporosis Screening (Bone Density Screening) 07/31/2022 Social Influencers of Health Screening 07/31/2022 COVID-19 Vaccine (2023-2 5 season) 2024 Influenza Vaccine (#1) 2024 3, 04/13/2012, 05/06/2011 Hypertension/CHF/CAD Annual BMP Blood Test 07/09/2025 07/09/2024 HIB Vaccines Aged Out No longer eligi ble based on patient's age to complete this topic HPV Vaccines Aged Out No longer eligi ble based on patient's age to complete this topic Hepatitis A Vaccines Aged Out No long er eligible based on patient's age to complete this topic Hepatitis B Vaccines Aged Out No long er eligible based on patient's age to complete this topic IPV Vaccines Aged Out No longer eligi ble based on patient's age to complete this topic MMR Vaccines Aged Out No longer eligi ble based on patient's age to complete this topic Meningococcal ACWY Vaccine Aged Out N o longer eligible based on patient's age to complete this topic RSV Immunization Patients Under 20 months Aged Out No longer eligible b ased on patient's age to complete this topic Varicella Vaccines Aged Out No longer eligible based on patient's age to complete this topic Procedures Procedure Name Priority Date/Time Associated Diagnosis Comments PROTHROMBIN TIME WITH INR Routine 09/17/2024 5:34 AM EST Unspecified atrial fibrillation (CMS/HCC) PROTHROMBIN TIME WITH INR Routine 09/13/2024 7:23 AM EST Unspecified atrial fibrillation (CMS/HCC) PROTHROMBIN TIME WITH INR Routine 09/10/2024 7:46 AM EST Unspecified atrial fibrillation (CMS/HCC) PROTHROMBIN TIME WITH INR Routine 09/03/2024 6:46 AM EST Unspecified atrial fibrillation (CMS/HCC) PROTHROMBIN TIME WITH INR Routine 08/27/2024 7:00 AM EST Unspecified atrial fibrillation (CMS/HCC) PROTHROMBIN TIME WITH INR Routine 08/20/2024 6:33 AM EST Unspecified atrial fibrillation (CMS/HCC) PROTHROMBIN TIME WITH INR Routine 08/13/2024 6:11 AM EST Unspecified atrial fibrillation (CMS/HCC) PROTHROMBIN TIME WITH INR Routine 08/06/2024 6:06 AM EST Unspecified atrial fibrillation (CMS/HCC) PROTHROMBIN TIME WITH INR Routine 07/30/2024 5:53 AM EST Unspecified atrial fibrillation (CMS/HCC) PROTHROMBIN TIME WITH INR Routine 07/23/2024 6:45 AM EST Chronic atrial fibrillation, unspecified (CMS/HCC) Unspecified atrial fibrillation (CMS/HCC) PROTHROMBIN TIME WITH INR Routine 07/16/2024 6:58 AM EST Unspecified atrial fibrillation (CMS/HCC) THYROID STIMULATING HORMONE [...] 3 unspecified (CMS/HCC) Unspecified atrial fibrillation (CMS/HCC) PROTHROMBIN TIME WITH INR Routine 07/09/2024 6:04 AM EST Hyperlipidemia, unspecified Chronic kidney disease, stage 3 unspecified (CMS/HCC) Unspecified atrial fibrillation (CMS/HCC) PROTHROMBIN TIME WITH INR Routine 07/02/2024 4:56 AM EST Unspecified atrial fibrillation (CMS/HCC) TRAVEL PHLEBOTOMY FEE Routine 06/25/2024 5:18 AM EST Chronic atrial fibrillation, unspecified (CMS/HCC) Unspecified atrial fibrillation (CMS/HCC) PROTHROMBIN TIME WITH INR Routine 06/25/2024 5:18 AM EST Chronic atrial fibrillation, unspecified (CMS/HCC) Unspecified atrial fibrillation (CMS/HCC) from Last 3 Months Results * (ABNORMAL) Prothrombin time with INR (09/17/2024 5:34 AM EST) Only the most recent of14 resultswithin the time period is included. Pathologist [facility] Protime 23.9(H) 10.6 - 13.9 sec LAB COAGULATION METHOD 09/17/2024 11:17 AM EST [facility] INR 1.9 LAB COAGULATION METHOD 09/17/2024 11:17 AM [facility] LAB Blood Venous blood specimen / Unknown Venipuncture / Unknown 09/17/2024 5:34 AM EST 09/17/2024 10:39 AM EST Yo Chambers MD LAB BLOOD ORDERABL ES [facility] LAB [address] [place] [address], * (ABNORMAL) Complete blood count (07/09/2024 6:04 AM EST) [facility] WBC 5.0 4.8 - 10.8 K/mcL LAB HEMETOLOGY METHOD 07/09/2024 11:27 AM [facility] RBC 3.60(L) 3.80 - 4.80 M/mcL LAB HEMETOLOGY METHOD 07/09/2024 11:27 AM [facility] Hemoglobin 11.4(L) 11.5 - 16.0 g/dL LAB HEMETOLOGY METHOD 07/09/2024 11:27 AM [facility] Hematocrit 35.4 35.0 - 47.0 % LAB HEMETOLOGY METHOD 07/09/2024 11:27 AM [facility] MCV 98.3(H) 79.0 - 98.0 FL LAB HEMETOLOGY METHOD 07/09/2024 11:27 AM [facility] MCH 31.7 27.0 - 32.0 pcg LAB HEMETOLOGY METHOD 07/09/2024 11:27 AM EST [facility] MCHC 32.2 32.0 - 37.0 g/dL LAB HEMETOLOGY METHOD 07/09/2024 11:27 AM EST [facility] RDW 14.6 11.0 - 15.0 % LAB HEMETOLOGY METHOD 07/09/2024 11:27 AM EST [facility] Platelets 228 130 - 400 K/mcL LAB HEMETOLOGY METHOD 07/09/2024 11:27 AM [facility] MPV 11.1(H) 7.0 - 11.0 FL LAB HEMETOLOGY METHOD 07/09/2024 11:27 AM [facility] NRBC 0.0 <1.0 % LAB HEMETOLOGY METHOD 07/09/2024 11:27 AM [facility] NRBC Absolute 0.00 <0.10 K/mcL LAB HEMETOLOGY METHOD 07/09/2024 11:27 AM [facility] Blood Venous blood specimen / Unknown Venipuncture / Unknown 07/09/2024 6:04 AM EST 07/09/2024 10:40 AM EST Yo Chambers MD LAB BLOOD ORDERABL ES [facility] LAB [address] [place] [address], * Thyroid stimulating hormone (07/09/2024 6:04 AM EST) TSH 1.92 0.40 - 4.00 mcIU/mL LAB CHEMISTRY METHOD 07/09/2024 11:55 AM EST [facility] Blood Venous blood specimen / Unknown Venipuncture / Unknown 07/09/2024 6:04 AM EST 07/09/2024 10:34 AM EST Yo Chambers MD LAB BLOOD ORDERABL ES [facility] LAB [address] [place] [address], * (ABNORMAL) Comprehensive metabolic panel (07/09/2024 6:04 AM EST) Sodium 143 133 - 145 mmol/L LAB CHEMISTRY METHOD 07/09/2024 1:06 PM [facility] Potassium 4.1 3.5 - 5.5 mmol/L LAB CHEMISTRY METHOD 07/09/2024 1:06 PM [facility] Chloride 110 96 - 110 mmol/L LAB CHEMISTRY METHOD 07/09/2024 1:06 PM [facility] CO2 23 21 - 32 mmol/L LAB CHEMISTRY METHOD 07/09/2024 1:06 PM [facility] Anion Gap 10 3 - 11 LAB CHEMISTRY METHOD 07/09/2024 1:06 PM [facility] Glucose 117(H) 70 - 100 mg/dL LAB CHEMISTRY METHOD 07/09/2024 1:06 PM [facility] BUN 11 5 - 25 mg/dL LAB CHEMISTRY METHOD 07/09/2024 1:06 PM [facility] Creatinine 0.95 0.50 - 1.10 mg/dL LAB CHEMISTRY METHOD 07/09/2024 1:06 PM [facility] eGFR 63 >=60 mL/min/1. 73m2 LAB CHEMISTRY METHOD 07/09/2024 1:06 PM [facility] Comment:Calculation based on the??Chronic Kidney Disease Epidemiology Collaboration (CKD-EPI) equation refit??without adjustment for race. BUN/Creatinine Ratio 11.6 LAB CHEMISTRY METHOD 07/09/2024 1:06 PM [facility] Calcium 8.7 8.5 - 10.5 mg/dL LAB CHEMISTRY METHOD 07/09/2024 1:06 PM [facility] AST (SGOT) 20 10 - 42 unit/L LAB CHEMISTRY METHOD 07/09/2024 1:06 PM [facility] ALT (SGPT) 27 10 - 60 unit/L LAB CHEMISTRY METHOD 07/09/2024 1:06 PM [facility] Alkaline Phosphatase 77 42 - 121 unit/L LAB CHEMISTRY METHOD 07/09/2024 1:06 PM [facility] Total Protein 5.6(L) 6.0 - 8.0 g/dL LAB CHEMISTRY METHOD 07/09/2024 1:06 PM [facility] Albumin 2.8(L) 3.2 - 5.0 g/dL LAB CHEMISTRY METHOD 07/09/2024 1:06 PM [facility] Total Bilirubin 0.3 0.0 - 1.4 mg/dL LAB CHEMISTRY METHOD 07/09/2024 1:06 PM [facility] Blood Venous blood specimen / Unknown Venipuncture / Unknown 07/09/2024 6:04 AM EST 07/09/2024 10:34 AM EST Yo Chambers MD LAB BLOOD ORDERABL ES Performing Organization Address City/[facility]/ZIP Co de Phone Number [facility] LAB [address] [place] [address], * Travel phlebotomy fee (06/25/2024 5:18 AM EST) [facility] TRAVEL PHLEBOTOMY FEE Completed 06/25/2024 10:01 AM EST [facility] Blood Venous blood specimen / Unknown 06/25/2024 5:18 AM EST 06/25/2024 9:37 AM EST Yo Chambers MD LAB BLOOD ORDERABL ES [facility] [place] [facility] LAB [address] [place] [address], from Last 3 Months Care Teams Oyster Culler Relationship Specialty Start Date End Date Yo Chambers MD [address] [place] [address] PCP - General 05/19/21
--- OUTSIDE RECORDS SUMMARY | 2024-09-18 13:12 | XMS_ITS | Encounter Summary ---
Author Organization [facility] Address [address] [place] [address] Care Team Providers Care Felt Hat Mellowing Machine Operator Name Role Phone Yo Chambers MD Primary Care Provider +1- [phone] Encounter Details Date Type Department Care Team (Late st Contact Info) Description 09/08/[address] [facility] Lab [address] [place] [address] Yo Chambers MD [address] [place] [address] Unspecified atrial fibrillation (CMS/HCC) Social History Tobacco [...] Diagnosis Comments PROTHROMBIN TIME WITH INR Routine 09/10/2024 7:46 AM EST Unspecified atrial fibrillation (CMS/HCC) documented in this encounter Results * (ABNORMAL) Prothrombin time with INR (09/10/2024 7:46 AM EST) Protime 49.3(H) 10.6 - 13.9 sec LAB COAGULATION METHOD 09/10/2024 1:16 PM EST [facility] LAB INR 3.9 LAB COAGULATION METHOD 09/10/2024 1:16 PM EST [facility] Blood Venous blood specimen / Unknown Venipuncture / Unknown 09/10/2024 7:46 AM EST 09/10/2024 12:11 PM EST Yo Chambers MD LAB BLOOD ORDERABL ES [facility] ([facility]) [facility] LAB [address] [place] [address], documented in this encounter Visit Diagnoses Diagnosis Unspecified atrial fibrillation (CMS/HCC) documented in this encounter Care Teams Felt Hat Mellowing Machine Operator Relationship Specialty Start Date End Date Yo Chambers MD [address] [place] [address] PCP - General 05/19/21 documented as of this encounter
--- OUTSIDE RECORDS SUMMARY | 2024-09-18 13:12 | XMS_ITS | Encounter Summary ---
Author Organization [facility] Address [address] [place] [address] Care Team Providers Care Surgical Supervisor Name Role Phone Yo Chambers MD Primary Care Provider +1- [phone] Encounter Details Date Type Department Care Team (Late st Contact Info) Description 08/24/2024 Lab Requisition [facility] Lab [address] [place] [address] Yo Chambers MD [address] [place] [address] Unspecified atrial fibrillation (CMS/HCC) Social History Tobacco [...] Diagnosis Comments PROTHROMBIN TIME WITH INR Routine 08/27/2024 7:00 AM EST Unspecified atrial fibrillation (CMS/HCC) documented in this encounter Results * (ABNORMAL) Prothrombin time with INR (08/27/2024 7:00 AM EST) Protime 18.5(H) 10.6 - 13.9 sec LAB COAGULATION METHOD 08/27/2024 11:37 AM EST [facility] LAB INR 1.5 LAB COAGULATION METHOD 08/27/2024 11:37 AM EST [facility] LAB Blood Venous blood specimen / Unknown Venipuncture / Unknown 08/27/2024 7:00 AM EST 08/27/2024 10:49 AM EST Yo Chambers MD LAB BLOOD ORDERABL ES [facility] [address] [place] [address], documented in this encounter Visit Diagnoses Diagnosis Unspecified atrial fibrillation (CMS/HCC) documented in this encounter Care Teams Surgical Supervisor Relationship Specialty Start Date End Date Yo Chambers MD [address] [place] [id number] PCP - General 05/19/21 documented as of this encounter
--- OUTSIDE RECORDS SUMMARY | 2024-09-18 13:12 | XMS_ITS | Encounter Summary ---
Author Organization [facility] Address [address] [place] [address] Care Team Providers Care Activity Leader Name Role Phone Yo Chambers MD Primary Care Provider +1- [phone] Encounter Details Date Type Department Care Team (Late st Contact Info) Description 09/12/2024 Lab Requisition [facility] - Main Lab [address] [place] [address] Yo Chambers MD [address] [place] [address] Unspecified atrial fibrillation (CMS/HCC) Social History Tobacco [...] Diagnosis Comments PROTHROMBIN TIME WITH INR Routine 09/13/2024 7:23 AM EST Unspecified atrial fibrillation (CMS/HCC) documented in this encounter Results * (ABNORMAL) Prothrombin time with INR (09/13/2024 7:23 AM EST) Protime 21.7(H) 10.6 - 13.9 sec LAB COAGULATION METHOD 09/13/2024 12:04 PM EST [facility] LAB INR 1.7 LAB COAGULATION METHOD 09/13/2024 12:04 PM [facility] LAB Blood Venous blood specimen / Unknown Venipuncture / Unknown 09/13/2024 7:23 AM EST 09/13/2024 10:57 AM EST Yo Chambers MD LAB BLOOD ORDERABL ES [facility] ([facility]) [facility] LAB [address] [place] [address], documented in this encounter Visit Diagnoses Diagnosis Unspecified atrial fibrillation (CMS/HCC) documented in this encounter Care Teams Activity Leader Relationship Specialty Start Date End Date Yo Chambers MD [address] [place] [address] PCP - General 05/19/21 documented as of this encounter
--- OUTSIDE RECORDS SUMMARY | 2024-09-18 13:12 | XMS_ITS | Encounter Summary ---
Author Organization [facility] Address [address] [place] [address] Care Team Providers Care Power Generation Turbine Room Operator Name Role Phone Yo Chambers MD Primary Care Provider +1- [phone] Encounter Details Date Type Department Care Team (Late st Contact Info) Description 08/03/2024 Lab Requisition [facility] Lab [address] [facility] [place] [address] Yo Chambers MD [address] [place] [address] Unspecified atrial fibrillation (CMS/HCC) Social History Tobacco [...] Diagnosis Comments PROTHROMBIN TIME WITH INR Routine 08/06/2024 6:06 AM EST Unspecified atrial fibrillation (CMS/HCC) documented in this encounter Results * (ABNORMAL) Prothrombin time with INR (08/06/2024 6:06 AM EST) Protime 21.2(H) 10.6 - 13.9 sec LAB COAGULATION METHOD 08/06/2024 12:[address] [facility] LAB INR 1.7 LAB COAGULATION METHOD 08/06/2024 12:13 PM [facility] LAB Blood Venous blood specimen / Unknown Venipuncture / Unknown 08/06/2024 6:06 AM EST 08/06/2024 11:41 AM EST Yo Chambers MD LAB BLOOD ORDERABL ES [facility] ([facility]) [facility] LAB [address] [place] [address], documented in this encounter Visit Diagnoses Diagnosis Unspecified atrial fibrillation (CMS/HCC) documented in this encounter Care Teams Power Generation Turbine Room Operator Relationship Specialty Start Date End Date Yo Chambers MD [address] [place] [id number] PCP - General 05/19/21 documented as of this encounter
--- OUTSIDE RECORDS SUMMARY | 2024-09-18 13:12 | XMS_ITS | Encounter Summary ---
Author Organization [facility] Address [address] [place] [address] Care Team Providers Care Rn Clinical Trials Name Role Phone Yo Chambers MD Primary Care Provider +1- [phone] Encounter Details Date Type Department Care Team (Late st Contact Info) Description 07/28/2024 Lab Requisition [facility] - Main Lab [address] [facility] [place] [address] Yo Chambers MD [address] [place] [address] Unspecified atrial fibrillation (CMS/HCC) Social History Tobacco [...] Diagnosis Comments PROTHROMBIN TIME WITH INR Routine 07/30/2024 5:53 AM EST Unspecified atrial fibrillation (CMS/HCC) documented in this encounter Results * (ABNORMAL) Prothrombin time with INR (07/30/2024 5:53 AM EST) Protime 26.6(H) 10.6 - 13.9 sec LAB COAGULATION METHOD 07/30/2024 11:11 AM EST [facility] LAB INR 2.1 LAB COAGULATION METHOD 07/30/2024 11:11 AM [facility] LAB Blood Venous blood specimen / Unknown Venipuncture / Unknown 07/30/2024 5:53 AM EST 07/30/2024 10:43 AM EST Yo Chambers MD LAB BLOOD ORDERABL ES [facility]) [facility] LAB [address] [place] [address], documented in this encounter Visit Diagnoses Diagnosis Unspecified atrial fibrillation (CMS/HCC) documented in this encounter Care Teams Rn Clinical Trials Relationship Specialty Start Date End Date Yo Chambers MD [address] [place] [id number] PCP - General 05/19/21 documented as of this encounter
--- OUTSIDE RECORDS SUMMARY | 2024-09-18 13:12 | XMS_ITS | Encounter Summary ---
Author Organization [facility] Address [address] [place] [address] Care Team Providers Care Grain Sampler Name Role Phone Yo Chambers MD Primary Care Provider +1- [phone] Encounter Details Date Type Department Care Team (Late st Contact Info) Description 08/31/2024 Lab Requisition [facility] - Main Lab [address] [place] [address] Yo Chambers MD [address] [place] [address] Unspecified atrial fibrillation (CMS/HCC) Social History Tobacco [...] Diagnosis Comments PROTHROMBIN TIME WITH INR Routine 09/03/2024 6:46 AM EST Unspecified atrial fibrillation (CMS/HCC) documented in this encounter Results * (ABNORMAL) Prothrombin time with INR (09/03/2024 6:46 AM EST) Protime 30.6(H) 10.6 - 13.9 sec LAB COAGULATION METHOD 09/03/2024 11:15 AM EST [facility] LAB INR 2.4 LAB COAGULATION METHOD 09/03/2024 11:15 AM EST [facility] LAB Blood Venous blood specimen / Unknown Venipuncture / Unknown 09/03/2024 6:46 AM EST 09/03/2024 10:53 AM EST Yo Chambers MD LAB BLOOD ORDERABL ES [facility] ([facility]) [facility] LAB [address] [place] [address], documented in this encounter Visit Diagnoses Diagnosis Unspecified atrial fibrillation (CMS/HCC) documented in this encounter Care Teams Grain Sampler Relationship Specialty Start Date End Date Yo Chambers MD [address] [place] [id number] PCP - General 05/19/21 documented as of this encounter
--- OUTSIDE RECORDS SUMMARY | 2024-09-18 13:12 | XMS_ITS | Encounter Summary ---
Author Organization [facility] Address [address] [place] [address] Care Team Providers Care Cd Technician Name Role Phone Unavailable Primary Care Provider Unavailabl e Encounter Details Date Type Department Care Team (Late st Contact Info) Description 08/29/2024 1:00 PM EST Office Visit [facility] [address] [place] [address] Amaury Ordoñez DDS [address] [place] [address] Ill-fitting dentures (Primary Dx) Social History Tobacco Use Types [...] PM EST documented as of this encounter Last Filed Vital Signs Vital Sign Reading Time Taken Comments Blood Pressure 131/80 08/29/2024 1:17 PM EST Pulse 63 08/29/2024 1:17 PM EST Temperature - - Respiratory Rate - - Oxygen Saturation - - Inhaled Oxygen Concentration - - Weight - - Height - - Body Mass Index - - documented in this encounter Progress Notes * Amaury Ordoñez DDS - 08/29/2024 2:07 PM EST Limited Exam Subjective Jagjit Salter, 74 year old female, presents alone for limited exam of UR. Door Technician: No No chief complaint on file. Pt wears a decade old partial. Several teeth were extracted after that , it doesn't fit. Sharp edges around a tooth that has now been extracted gave her a soft tissue growth due to constant irritation. Description of pain: off & on Objective RMHx: Yes Vitals: Vitals: 08/29/24 1317 BP: 131/80 Pulse: 63 BP Site: Right Wrist BP Position: Sitting BP Cuff Size: Regular Adult Pain Score: 0 - No pain Endo Status: Endo Testing: Tooth # Palpation Percussion Endo Ice EPT Mobility Probing Assessment Dx: No diagnosis found. Soft tissue growth Dx Details (Clinical Decision-Making): Upper right region soft tissue growth caused by chronic denture irritation. Advised Biopsy. Plan Informed Consent/PARQ (Procedure, Alternatives, Risks, Questions): Discussed [...] dental procedures in this visit. Treatment Completed: adjustment made on partial, sharp edges rounded off and debacterol applied on the growth. Referral: No orders of the following type(s) were placed in this encounter: Referral. Rx: No orders of the defined types were placed in this encounter. Behavior: Noncompliant - Pt was advised a new prosthesis but she completely refused and was lookingto fix a decade old partial even though it doesn't fit and is not hygenic. DA: Josie [place]: Recall Exam - 6 months documented in this encounter Miscellaneous Notes * Patient Instructions - Amaury Ordoñez DDS - 08/29/2024 2:02 PM EST If you are not able to keep your appointment please call 24-48 hours before your appointment to cancel or reschedule. documented in this encounter Plan of Treatment Upcoming Encounters Date Type Department Care Team ([facility] st Contact Info) Description 09/21/2024 3:00 PM EST Office [facility] [address] [place] [phone] Pop Newby [address] [place] [address] 10/24/2024 4:00 PM EST Office Visit [facility] [address] [place] [phone] Aneta FernándezisLEROYS [address] [place], [place] [phone] Scheduled Orders Name Type Priority Associated Diagnoses Order Schedule LIMITED ORAL EVALUATION - PROBLEM FOCUSED Dental Procedures Routine 1 Occurrences starting 08/29/2024 INTRAORAL - PERIAPICAL FIRST RADIOGRAPHIC IMAGE Dental Procedures Routine 1 Occurrenc es starting 08/29/2024 documented as of this encounter Procedures Procedure Name Priority Date/Time Associated Diagnosis Comments LIMITED ORAL EVALUATION - PROBLEM FOCUSED Routine 08/29/2024 1:00 PM EST Ill-fitting dentures documented in this encounter Visit Diagnoses Diagnosis Ill-fitting dentures- Primary Problems with swallowing and mastication documented in this encounter
--- OUTSIDE RECORDS SUMMARY | 2024-09-18 13:12 | XMS_ITS | Encounter Summary ---
Author Organization [facility] Address [address] [place] [address] Care Team Providers Care Chemical Reclamation Equipment Operator Name Role Phone Yo Chambers MD Primary Care Provider +1- [phone] Encounter Details Date Type Department Care Team (Late st Contact Info) Description 06/29/2024 Lab Requisition [facility] - Main Lab [address] [facility] [place] [address] Yo Chambers MD [address] [place] [address] Unspecified atrial fibrillation (CMS/HCC) Social History Tobacco [...] on file documented as of this encounter Visit Diagnoses Diagnosis Unspecified atrial fibrillation (CMS/HCC) documented in this encounter Care Teams Chemical Reclamation Equipment Operator Relationship Specialty Start Date End Date Yo Chambers MD [address] [place] [address] PCP - General 05/19/21 documented as of this encounter
--- OUTSIDE RECORDS SUMMARY | 2024-09-18 13:12 | XMS_ITS | Encounter Summary ---
Author Organization [facility] Address [address] [place] [address] Care Team Providers Care Master Merchandiser Name Role Phone Yo Chambers MD Primary Care Provider +1- [phone] Encounter Details Date Type Department Care Team (Late st Contact Info) Description 06/23/2024 Lab Requisition [facility] - Main Lab [address] [facility] [place] [address] Yo Chambers MD [address] [place] [address] Chronic atrial fibrillation, unspecified (CMS/HCC); Unspecified atrial [...] Procedure Name Priority Date/Time Associated Diagnosis Comments TRAVEL PHLEBOTOMY FEE Routine 06/25/2024 5:18 AM EST Chronic atrial fibrillation, unspecified (CMS/HCC) Unspecified atrial fibrillation (CMS/HCC) PROTHROMBIN TIME WITH INR Routine 06/25/2024 5:18 AM EST Chronic atrial fibrillation, unspecified (CMS/HCC) Unspecified atrial fibrillation (CMS/HCC) documented in this encounter Results * Travel phlebotomy fee (06/25/2024 5:18 AM EST) [facility] TRAVEL PHLEBOTOMY FEE Completed 06/25/2024 10:01 AM EST [facility] Blood Venous blood specimen / Unknown 06/25/2024 5:18 AM EST 06/25/2024 9:37 AM EST Yo Chambers MD LAB BLOOD ORDERABL ES Performing Organization Address City/[facility]/ZIP Co de Phone Number [facility] [address] [place] [address], * (ABNORMAL) Prothrombin time with INR (06/25/2024 5:18 AM EST) Protime 30.0(H) 10.6 - 13.9 sec LAB COAGULATION METHOD 06/25/2024 11:07 AM [facility] INR 2.4 LAB COAGULATION METHOD 06/25/2024 11:07 AM [facility] Blood Venous blood specimen / Unknown Venipuncture / Unknown 06/25/2024 5:18 AM EST 06/25/2024 9:37 AM EST Yo Chambers MD LAB BLOOD ORDERABL ES Performing Organization Address City/[facility]/ZIP Co de Phone Number [facility] [address] [place] [address], documented in this encounter Visit Diagnoses Diagnosis Chronic atrial fibrillation, unspecified (CMS/HCC) Unspecified atrial fibrillation (CMS/HCC) documented in this encounter Care Teams Master Merchandiser Relationship Specialty Start Date End Date Yo Chambers MD [address] [place] [address] PCP - General 05/19/21 documented as of this encounter
--- OUTSIDE RECORDS SUMMARY | 2024-09-18 13:12 | XMS_ITS | Encounter Summary ---
Author Organization [facility] Address [address] [place] [address] Care Team Providers Care Educational Sign Language Interpreter Name Role Phone Yo Chamebrs MD Primary Care Provider +1- [phone] Encounter Details Date Type Department Care Team (Late st Contact Info) Description 06/29/2024 Lab Requisition [facility] - Main Lab [address] [place] [address] Yo Chambers MD [address] [place] [address] Unspecified atrial fibrillation (CMS/HCC) Social History Tobacco [...] Diagnosis Comments PROTHROMBIN TIME WITH INR Routine 07/02/2024 4:56 AM EST Unspecified atrial fibrillation (CMS/HCC) documented in this encounter Results * (ABNORMAL) Prothrombin time with INR (07/02/2024 4:56 AM EST) Protime 27.3(H) 10.6 - 13.9 sec LAB COAGULATION METHOD 07/02/2024 9:07 AM EST [facility] INR 2.2 LAB COAGULATION METHOD 07/02/2024 9:07 AM EST [facility] Blood Venous blood specimen / Unknown Venipuncture / Unknown 07/02/2024 4:56 AM EST 07/02/2024 8:11 AM EST Yo Chambers MD LAB BLOOD ORDERABL ES [facility] ([facility]) [facility] [address] [place] [address], documented in this encounter Visit Diagnoses Diagnosis Unspecified atrial fibrillation (CMS/HCC) documented in this encounter Care Teams Educational Sign Language Interpreter Relationship Specialty Start Date End Date Yo Chambers MD [address] [place] [address] PCP - General 05/19/21 documented as of this encounter
--- OUTSIDE RECORDS SUMMARY | 2024-09-18 13:12 | XMS_ITS | Encounter Summary ---
Author Organization [facility] Address [address] [place] [address] Care Team Providers Care Forest Pathology Associate Professor Name Role Phone Yo Chambers MD Primary Care Provider +1- [phone] Encounter Details Date Type Department Care Team (Late st Contact Info) Description 07/13/2024 Lab Requisition [facility] - Main Lab [address] [place] [address] Yo Chambers MD [address] [place] [address] Unspecified atrial fibrillation (CMS/HCC) Social History Tobacco [...] Diagnosis Comments PROTHROMBIN TIME WITH INR Routine 07/16/2024 6:58 AM EST Unspecified atrial fibrillation (CMS/HCC) documented in this encounter Results * (ABNORMAL) Prothrombin time with INR (07/16/2024 6:58 AM EST) Protime 24.6(H) 10.6 - 13.9 sec LAB COAGULATION METHOD 07/16/2024 12:14 PM EST [facility] INR 2.0 LAB COAGULATION METHOD 07/16/2024 12:14 PM EST [facility] Blood Venous blood specimen / Unknown Venipuncture / Unknown 07/16/2024 6:58 AM EST 07/16/2024 11:16 AM EST Yo Chambers MD LAB BLOOD ORDERABL ES [facility] ([facility]) [facility] [address] [place] [address], documented in this encounter Visit Diagnoses Diagnosis Unspecified atrial fibrillation (CMS/HCC) documented in this encounter Care Teams Forest Pathology Associate Professor Relationship Specialty Start Date End Date Yo Chambers MD [address] [place] [address] PCP - General 05/19/21 documented as of this encounter
== END 2024-09-18 12:19 | disposition home or self-care (01) ==
LOC: HO.HAP 12:18
PROVIDERS: Visit Provider Internal Medicine
DX: Z46.1 Encounter for fitting and adjustment of hearing aid (principal); H90.3 Sensorineural hearing loss, bilateral
CPT/HCPCS: 92593; 99499; V5266

== ENCOUNTER 2024-09-18 13:22 | Outpatient (REF) | payer SELFPAY ==
--- OUTSIDE RECORDS SUMMARY | 2024-09-18 14:21 | XMS_ITS | Encounter Summary ---
Author Organization [facility] Address [address] [place] [address] Care Team Providers Care Plumbing Mechanic Name Role Phone Yo Chambers MD Primary Care Provider +1- [phone] Encounter Details Date Type Department Care Team (Late st Contact Info) Description 08/24/2024 Lab Requisition [facility] - Main Lab [address] [place] [address] Yo Chambers MD [address] [place] [address] Unspecified atrial fibrillation (CMS/HCC) Social History Tobacco [...] LAB COAGULATION METHOD 08/27/2024 11:37 AM EST [facility] INR 1.5 LAB COAGULATION METHOD 08/27/2024 11:37 AM EST [facility] Blood Venous blood specimen / Unknown Venipuncture / Unknown 08/27/2024 7:00 AM EST 08/27/2024 10:49 AM EST Yo Chambers MD LAB BLOOD ORDERABL ES [facility] ([facility]) [facility] [address] [place] [address], documented in this encounter Visit Diagnoses Diagnosis Unspecified atrial fibrillation (CMS/HCC) documented in this encounter Care Teams Plumbing Mechanic Relationship Specialty Start Date End Date Yo Chambers MD [address] [place] [address] PCP - General 05/19/21 documented as of this encounter
--- OUTSIDE RECORDS SUMMARY | 2024-09-18 14:21 | XMS_ITS | Encounter Summary ---
Author Organization [facility] Address [address] [place] [address] Care Team Providers Care Manager Plumbing Name Role Phone Yo Chambers MD Primary Care Provider +1- [phone] Encounter Details Date Type Department Care Team (Late st Contact Info) Description 07/21/2024 Lab Requisition [facility] - Main Lab [address] [place] [address] Yo Chambers MD [address] [place] [address] Chronic atrial fibrillation, unspecified (CMS/HCC); Unspecified atrial [...] LAB COAGULATION METHOD 07/23/2024 12:11 PM EST [facility] INR 2.0 LAB COAGULATION METHOD 07/23/2024 12:[address] [facility] Blood Venous blood specimen / Unknown Venipuncture / Unknown 07/23/2024 6:45 AM EST 07/23/2024 10:59 AM EST Yo Chambers MD LAB BLOOD ORDERABL ES [facility] [address] [place], [place] [address] [phone] documented in this encounter Visit Diagnoses Diagnosis Chronic atrial fibrillation, unspecified (CMS/HCC) Unspecified atrial fibrillation (CMS/HCC) documented in this encounter Care Teams Manager Plumbing Relationship Specialty Start Date End Date Yo Chambers MD [address] [place] [address] PCP - General 05/19/21 documented as of this encounter
--- OUTSIDE RECORDS SUMMARY | 2024-09-18 14:21 | XMS_ITS | Encounter Summary ---
Author Organization [facility] Address [address] [place] [address] Care Team Providers Care Evaluator Transfer Students Name Role Phone Yo Chambers MD Primary Care Provider +1- [phone] Encounter Details Date Type Department Care Team (Late st Contact Info) Description 07/13/2024 Lab Requisition [facility] - Main Lab [address] [place] [address] Yo Chambers MD [address] [place] [address] Unspecified atrial fibrillation (CMS/HCC) Social History Tobacco [...] LAB COAGULATION METHOD 07/16/2024 12:14 PM EST [facility] INR 2.0 LAB COAGULATION METHOD 07/16/2024 12:14 PM EST [facility] Blood Venous blood specimen / Unknown Venipuncture / Unknown 07/16/2024 6:58 AM EST 07/16/2024 11:16 AM EST Yo Chambers MD LAB BLOOD ORDERABL ES [facility] ([facility]) [facility] [address] [place] [address], documented in this encounter Visit Diagnoses Diagnosis Unspecified atrial fibrillation (CMS/HCC) documented in this encounter Care Teams Evaluator Transfer Students Relationship Specialty Start Date End Date Yo Chambers MD [address] [place] [address] PCP - General 05/19/21 documented as of this encounter
--- OUTSIDE RECORDS SUMMARY | 2024-09-18 14:21 | XMS_ITS | Encounter Summary ---
Author Organization [facility] Address [address] [place] [address] Care Team Providers Care Immigration Lawyer Name Role Phone Unavailable Primary Care Provider [...] Description 09/21/2024 3:00 PM EST Office Visit [facility] Dental [address] [place] [phone] Pop [place] [address] [place] [address] 10/24/2024 4:00 PM EST Office Visit [facility] St Dental [address] [place] [phone] EscobarSaji Silver DDS [address] [place] [address] documented as of this encounter Visit Diagnoses Not on filedocumented in this encounter
--- OUTSIDE RECORDS SUMMARY | 2024-09-18 14:21 | XMS_ITS | Encounter Summary ---
Author Organization [facility] Address [address] [place] [address] Care Team Providers Care Jumpbasting Armhole Baster Name Role Phone Yo Chambers MD Primary Care Provider +1- [phone] Encounter Details Date Type Department Care Team (Late st Contact Info) Description 06/29/2024 Lab Requisition [facility] - Main Lab [address] [place] [address] Yo Chambers MD [address] [place] [address] Unspecified atrial fibrillation (CMS/HCC) Social History Tobacco [...] LAB COAGULATION METHOD 07/02/2024 9:07 AM EST [facility] INR 2.2 LAB COAGULATION METHOD 07/02/2024 9:07 AM EST [facility] Blood Venous blood specimen / Unknown Venipuncture / Unknown 07/02/2024 4:56 AM EST 07/02/2024 8:11 AM EST Yo Chambers MD LAB BLOOD ORDERABL ES [facility] ([facility]) [facility] [address] [place] [address], documented in this encounter Visit Diagnoses Diagnosis Unspecified atrial fibrillation (CMS/HCC) documented in this encounter Care Teams Jumpbasting Armhole Baster Relationship Specialty Start Date End Date Yo Chambers MD [address] [place] [address] PCP - General 05/19/21 documented as of this encounter
--- OUTSIDE RECORDS SUMMARY | 2024-09-18 14:21 | XMS_ITS | Encounter Summary ---
Author Organization [facility] Address [address] [place] [address] Care Team Providers Care Senior Architectural Designer Name Role Phone Yo Chambers MD Primary Care Provider +1- [phone] Encounter Details Date Type Department Care Team (Late st Contact Info) Description 07/07/[address] [facility] - Main Lab [address] [facility] [place] [address] Yo Chambers MD [address] [place] [address] Hyperlipidemia, unspecified; Chronic kidney disease, stage 3 [...] LAB CHEMISTRY METHOD 07/09/2024 11:55 AM EST [facility] Blood Venous blood specimen / Unknown Venipuncture / Unknown 07/09/2024 6:04 AM EST 07/09/2024 10:34 AM EST Yo Chambers MD LAB BLOOD ORDERABL ES [facility] [address] [place] [address], * (ABNORMAL) Comprehensive metabolic panel (07/09/2024 6:04 AM EST) Pathologist [facility] Sodium 143 133 - 145 mmol/L LAB [...] Yo Chambers MD LAB BLOOD ORDERABL ES [facility] [address] [place] [address], * (ABNORMAL) Complete blood count (07/09/2024 6:04 AM EST) [facility] Signature WBC 5.0 4.8 - 10.8 [...] LAB HEMETOLOGY METHOD 07/09/2024 11:27 AM EST [facility] RDW 14.6 11.0 - 15.0 [...] LAB HEMETOLOGY METHOD 07/09/2024 11:27 AM EST [facility] NRBC Absolute 0.00 <0.10 K/mcL LAB HEMETOLOGY METHOD 07/09/2024 11:27 AM EST [facility] Blood Venous blood specimen / Unknown Venipuncture / Unknown 07/09/2024 6:04 AM EST 07/09/2024 10:40 AM EST Yo Chambers MD LAB BLOOD ORDERABL ES Performing Organization Address City/[facility]/ZIP Co de Phone Number [facility] [address] [place] [address], * (ABNORMAL) Prothrombin time with INR (07/09/2024 6:04 AM EST) Protime 18.6(H) 10.6 - 13.9 sec LAB COAGULATION METHOD 07/09/2024 11:32 AM EST [facility] INR 1.5 LAB COAGULATION METHOD 07/09/2024 11:32 AM EST [facility] Blood Venous blood specimen / Unknown Venipuncture / Unknown 07/09/2024 6:04 AM EST 07/09/2024 10:34 AM EST Yo Chambers MD LAB BLOOD ORDERABL ES [facility] [address] [place] [address], [place] [phone] documented in this encounter Visit Diagnoses Diagnosis Hyperlipidemia, unspecified Chronic kidney disease, stage 3 unspecified (CMS/HCC) Unspecified atrial fibrillation (CMS/HCC) documented in this encounter Care Teams Senior Architectural Designer Relationship Specialty Start Date End Date Yo Chambers MD [address] [place] [address] PCP - General 05/19/21 documented as of this encounter
--- OUTSIDE RECORDS SUMMARY | 2024-09-18 14:21 | XMS_ITS | Encounter Summary ---
Author Organization [facility] Address [address] [place] [address] Care Team Providers Care File Conversion Operator Name Role Phone Yo Chambers MD Primary Care Provider +1- [phone] Encounter Details Date Type Department Care Team (Late st Contact Info) Description 07/28/[address] [facility] - Main Lab [address] [facility] [place] [address] Yo Chambers MD [address] [place] [address] Unspecified atrial fibrillation (CMS/HCC) Social History Tobacco [...] LAB COAGULATION METHOD 07/30/2024 11:11 AM EST [facility] INR 2.1 LAB COAGULATION METHOD 07/30/2024 11:11 AM [facility] Blood Venous blood specimen / Unknown Venipuncture / Unknown 07/30/2024 5:53 AM EST 07/30/2024 10:43 AM EST Yo Chambers MD LAB BLOOD ORDERABL ES [facility] ([facility]) [facility] [address] [place] [address], documented in this encounter Visit Diagnoses Diagnosis Unspecified atrial fibrillation (CMS/HCC) documented in this encounter Care Teams File Conversion Operator Relationship Specialty Start Date End Date Yo Chambers MD [address] [place] [address] PCP - General 05/19/21 documented as of this encounter
--- OUTSIDE RECORDS SUMMARY | 2024-09-18 14:21 | XMS_ITS | Encounter Summary ---
Author Organization [facility] Address [address] [place] [address] Care Team Providers Care Associate Professor Computer Science Name Role Phone Unavailable Primary Care Provider Unavailabl e Encounter Details Date Type Department Care Team (Late st Contact Info) Description 08/31/2024 Dental Interim Note [place] [address] [place] [phone] Etienne Mehta, [facility] [address] [place] [address] Encounter for dental examination (Primary Dx) Social [...] Description 09/21/2024 3:00 PM EST Office Visit [facility] [address] [place] [address] Pop [place] [address] [place] [address] 10/24/2024 4:00 PM EST Office Visit [facility] Dental [facility] [place] [phone] Saji Fernández, DDS [address] [place] [address] documented as of this encounter Visit Diagnoses Diagnosis Encounter for dental examination- Primary Dental examination documented in this encounter
--- OUTSIDE RECORDS SUMMARY | 2024-09-18 14:21 | XMS_ITS | Encounter Summary ---
Author Organization [facility] Address [address] [place] [address] Care Team Providers Care Silverware Etcher Name Role Phone Yo Chambers MD Primary Care Provider +1- [phone] Encounter Details Date Type Department Care Team (Late st Contact Info) Description 06/29/2024 Lab Requisition [facility] - Main Lab [address] [facility] [place] [address] Yo Chambers MD [address] [place] [address] Unspecified atrial fibrillation (CMS/HCC) Social History Tobacco [...] (CMS/HCC) documented in this encounter Care Teams Silverware Etcher Relationship Specialty Start Date End Date Yo Chambers MD [address] [place] [address] PCP - General 05/19/21 documented as of this encounter
--- OUTSIDE RECORDS SUMMARY | 2024-09-18 14:21 | XMS_ITS | Encounter Summary ---
Author Organization [facility] Address [address] [place] [address] Care Team Providers Care Hot Bread Baker Name Role Phone Unavailable Primary Care Provider [...] Description 09/21/2024 3:00 PM EST Office Visit [facility] St Dental [address] [place] [phone] Pop [place] [address] [place] [address] 10/24/2024 4:00 PM EST Office Visit [facility] Dental [address] [place] [phone] EscobarSaji Silver DDS [address] [place] [address] documented as of this encounter Visit Diagnoses Not on filedocumented in this encounter
--- OUTSIDE RECORDS SUMMARY | 2024-09-18 14:21 | XMS_ITS | Encounter Summary ---
Author Organization [facility] Address [address] [place] [address] Care Team Providers Care Rn Integrated Name Role Phone Unavailable Primary Care Provider Unavailabl e Reason for Visit * Reason Comments Dental Pain PAIN WITH DENTURE Encounter Details Date Type Department Care Team (Late st Contact Info) Description 09/05/2024 1:20 PM EST Office Visit [facility] Dental [address] [place] [address] DuncanAlondra [address] [place] [address] Encounter for dental examination (Primary Dx) Social [...] discussion with Dr French about previous diagnosis Process Checker: No Chief Complaint Patient presents with Dental [...] Description 09/21/2024 3:00 PM EST Office Visit [facility] [address] [place] [phone] Pop eNwby [address] [place] [address] 10/24/2024 4:00 PM EST Office Visit [facility] Dental [address] [place] [phone] Saji Fernández DDS [address] [place] [address] Scheduled Orders Name Type Priority Associated Diagnoses [...]
--- OUTSIDE RECORDS SUMMARY | 2024-09-18 14:21 | XMS_ITS | Clinical Summary ---
Author Organization [address] Address [address] [place] [address] Phone Care Team Providers Care Hydrogen Operator Name Role Phone Yo Chambers MD Primary Care Provider +1- [phone] Medications No known medications Encounters Date Type Department Care Team Description 09/15/2024 Lab Requisition [facility] Lab [address] [place] [phone] Yo Chambers MD Unspecified atrial fibrillation (CMS/HCC) 09/12/2024 Lab Requisition [facility] Lab [address] [place] [phone] Yo Chambers MD Unspecified atrial fibrillation (CMS/HCC) 09/08/2024 Lab Requisition [facility] Lab [address] [place] [phone] Yo Chambers MD Unspecified atrial fibrillation (CMS/HCC) 08/31/2024 Lab Requisition [facility] - Main Lab [address] [place] [phone] Yo Chambers MD Unspecified atrial fibrillation (CMS/HCC) 08/24/2024 Lab Requisition [facility] Lab [address] [place] [phone] Yo Chambers MD Unspecified atrial fibrillation (CMS/HCC) 08/17/2024 Lab Requisition [facility] Lab [address] [place] [phone] Yo Chambers MD Unspecified atrial fibrillation (CMS/HCC) 08/11/2024 Lab Requisition [facility] Lab [address] [place] [phone] Yo Chambers MD Unspecified atrial fibrillation (CMS/HCC) 08/03/2024 Lab Requisition [facility] Lab [address] [place] [phone] Yo Chambers MD Unspecified atrial fibrillation (CMS/HCC) 08/01/2024 Telephone [facility] Cardiology [address] [place] [address] Quang Barrios MD Foot Swelling (swelling) 07/28/2024 Lab Requisition [facility] Lab [address] [place] [phone] Yo Chambers MD Unspecified atrial fibrillation (CMS/HCC) 07/21/2024 Lab Requisition [facility] Lab [address] [place] [phone] Yo Chambers MD Chronic atrial fibrillation, unspecified (CMS/HCC); Unspecified atrial fibrillation (CMS/HCC) 07/13/2024 Lab Requisition [facility] Lab [address] [place] [phone] Yo Chambers MD Unspecified atrial fibrillation (CMS/HCC) 07/07/2024 Lab Requisition [facility] Lab [address] [place] [phone] Yo Chambers MD Hyperlipidemia, unspecified; Chronic kidney disease, stage 3 unspecified (CMS/HCC); Unspecified atrial fibrillation (CMS/HCC) 06/29/2024 Lab Requisition [facility] Main Lab [address] [place] [phone] Yo Chambers MD Unspecified atrial fibrillation (CMS/HCC) 06/29/2024 Lab Requisition [facility] Lab [address] [place] [address] Yo Chambers MD Unspecified atrial fibrillation (CMS/HCC) 06/23/2024 Lab Requisition [facility] Lab [address] [place] [address] Yo Chambers MD Chronic atrial [...] resultswithin the time period is included. Pathologist [facility] Protime 23.9(H) 10.6 - 13.9 sec LAB COAGULATION METHOD 09/17/2024 11:17 AM EST [facility] LAB INR 1.9 LAB COAGULATION METHOD 09/17/2024 11:17 AM [facility] LAB Blood Venous blood specimen / Unknown Venipuncture / Unknown 09/17/2024 5:34 AM EST 09/17/2024 10:39 AM EST Yo Chambers MD LAB BLOOD ORDERABL ES [facility] LAB [address] [place] [address], * (ABNORMAL) Complete blood count (07/09/2024 6:04 AM EST) [facility] WBC 5.0 4.8 - 10.8 K/mcL LAB HEMETOLOGY METHOD 07/09/2024 11:27 AM [facility] RBC 3.60(L) 3.80 - 4.80 M/mcL LAB HEMETOLOGY METHOD 07/09/2024 11:27 AM [facility] Hemoglobin 11.4(L) 11.5 - 16.0 g/dL LAB HEMETOLOGY METHOD 07/09/2024 11:27 AM [facility] LAB Hematocrit 35.4 35.0 - 47.0 % LAB HEMETOLOGY METHOD 07/09/2024 11:27 AM [facility] MCV 98.3(H) 79.0 - 98.0 FL LAB HEMETOLOGY METHOD 07/09/2024 11:27 AM [facility] MCH 31.7 27.0 - 32.0 pcg LAB HEMETOLOGY METHOD 07/09/2024 11:27 AM EST [facility] MCHC 32.2 32.0 - 37.0 g/dL LAB HEMETOLOGY METHOD 07/09/2024 11:27 AM EST [facility] RDW 14.6 11.0 - 15.0 % LAB HEMETOLOGY METHOD 07/09/2024 11:27 AM EST [facility] Platelets 228 130 - 400 K/mcL LAB HEMETOLOGY METHOD 07/09/2024 11:27 AM [facility] MPV 11.1(H) 7.0 - 11.0 FL LAB HEMETOLOGY METHOD 07/09/2024 11:27 AM [facility] NRBC 0.0 <1.0 % LAB HEMETOLOGY METHOD 07/09/2024 11:27 AM [facility] NRBC Absolute 0.00 <0.10 K/mcL LAB HEMETOLOGY METHOD 07/09/2024 11:27 AM [facility] Blood Venous blood specimen / Unknown Venipuncture / Unknown 07/09/2024 6:04 AM EST 07/09/2024 10:40 AM EST Yo Chambers MD LAB BLOOD ORDERABL ES [facility] LAB [address] [place] [address], * Thyroid stimulating hormone (07/09/2024 6:04 AM EST) TSH 1.92 0.40 - 4.00 mcIU/mL LAB CHEMISTRY METHOD 07/09/2024 11:55 AM EST [facility] Blood Venous blood specimen / Unknown Venipuncture / Unknown 07/09/2024 6:04 AM EST 07/09/2024 10:34 AM EST Yo Chambers MD LAB BLOOD ORDERABL ES [facility] LAB [address] [place] [address], * (ABNORMAL) Comprehensive metabolic panel (07/09/2024 6:04 AM EST) Sodium 143 133 - 145 mmol/L LAB CHEMISTRY METHOD 07/09/2024 1:06 PM [facility] Potassium 4.1 3.5 - 5.5 mmol/L LAB CHEMISTRY METHOD 07/09/2024 1:06 PM [facility] Chloride 110 96 - 110 mmol/L LAB CHEMISTRY METHOD 07/09/2024 1:06 PM [facility] CO2 23 21 - 32 mmol/L LAB CHEMISTRY METHOD 07/09/2024 1:06 PM [facility] Anion Gap 10 3 - 11 LAB CHEMISTRY METHOD 07/09/2024 1:06 PM [facility] Glucose 117(H) 70 - 100 mg/dL LAB CHEMISTRY METHOD 07/09/2024 1:06 PM [facility] BUN 11 5 - 25 mg/dL LAB CHEMISTRY METHOD 07/09/2024 1:06 PM [facility] Creatinine 0.95 0.50 - 1.10 mg/dL LAB CHEMISTRY METHOD 07/09/2024 1:06 PM [facility] eGFR 63 >=60 mL/min/1. 73m2 LAB CHEMISTRY METHOD 07/09/2024 1:06 PM [facility] Comment:Calculation based on the??Chronic Kidney Disease Epidemiology Collaboration (CKD-EPI) equation refit??without adjustment for race. BUN/Creatinine Ratio 11.6 LAB CHEMISTRY METHOD 07/09/2024 1:06 PM [facility] Calcium 8.7 8.5 - 10.5 mg/dL LAB CHEMISTRY METHOD 07/09/2024 1:06 PM [facility] AST (SGOT) 20 10 - 42 unit/L LAB CHEMISTRY METHOD 07/09/2024 1:06 PM [facility] ALT (SGPT) 27 10 - 60 unit/L LAB CHEMISTRY METHOD 07/09/2024 1:06 PM [facility] Alkaline Phosphatase 77 42 - 121 unit/L LAB CHEMISTRY METHOD 07/09/2024 1:06 PM [facility] Total Protein 5.6(L) 6.0 - 8.0 g/dL LAB CHEMISTRY METHOD 07/09/2024 1:06 PM [facility] Albumin 2.8(L) 3.2 - 5.0 g/dL LAB CHEMISTRY METHOD 07/09/2024 1:06 PM [facility] Total Bilirubin 0.3 0.0 - 1.4 mg/dL LAB CHEMISTRY METHOD 07/09/2024 1:06 PM [facility] Blood Venous blood specimen / Unknown Venipuncture / Unknown 07/09/2024 6:04 AM EST 07/09/2024 10:34 AM EST Yo Chambers MD LAB BLOOD ORDERABL ES Performing Organization Address City/[facility]/ZIP Co de Phone Number [facility] LAB [address] [place] [address], * Travel phlebotomy fee (06/25/2024 5:18 AM EST) [facility] TRAVEL PHLEBOTOMY FEE Completed 06/25/2024 10:01 AM EST [facility] Blood Venous blood specimen / Unknown 06/25/2024 5:18 AM EST 06/25/2024 9:37 AM EST Yo Chambers MD LAB BLOOD ORDERABL ES [facility] [place] [facility] H[facility] LAB [address] [place] [address], from Last 3 Months Care Teams Hydrogen Operator Relationship Specialty Start Date End Date Yo Chambers MD [address] [place] [address] PCP - General 05/19/21
--- OUTSIDE RECORDS SUMMARY | 2024-09-18 14:21 | XMS_ITS | Encounter Summary ---
Author Organization [facility] Address [address] [place] [address] Care Team Providers Care Die Sizer Name Role Phone Yo Chambers MD Primary Care Provider +1- [phone] Encounter Details Date Type Department Care Team (Late st Contact Info) Description 08/03/2024 Lab Requisition [facility] Lab [address] [facility] [place] [address] Yo Chambers MD [address] [place] [address] Unspecified atrial fibrillation (CMS/HCC) Social History Tobacco [...] LAB COAGULATION METHOD 08/06/2024 12:13 PM EST [facility] LAB INR 1.7 LAB COAGULATION METHOD 08/06/2024 12:13 PM [facility] LAB Blood Venous blood specimen / Unknown Venipuncture / Unknown 08/06/2024 6:06 AM EST 08/06/2024 11:41 AM EST Yo Chambers MD LAB BLOOD ORDERABL ES [facility] LAB [address] [place] [address], documented in this encounter Visit Diagnoses Diagnosis Unspecified atrial fibrillation (CMS/HCC) documented in this encounter Care Teams Die Sizer Relationship Specialty Start Date End Date Yo Chambers MD [address] [place] [address] PCP - General 05/19/21 documented as of this encounter
--- OUTSIDE RECORDS SUMMARY | 2024-09-18 14:21 | XMS_ITS | Encounter Summary ---
Author Organization [facility] Address [address] [place] [address] Care Team Providers Care Volunteer Services Director Name Role Phone Yo Chambers MD Primary Care Provider +1- [phone] Encounter Details Date Type Department Care Team (Late st Contact Info) Description 08/17/2024 Lab Requisition [facility] Lab [address] [facility] [place] [address] Yo Chambers MD [address] [place] [address] Unspecified atrial fibrillation (CMS/HCC) Social History Tobacco [...] LAB COAGULATION METHOD 08/20/2024 10:18 AM EST [facility] LAB INR 2.1 LAB COAGULATION METHOD 08/20/2024 10:18 AM EST [facility] LAB Blood Venous blood specimen / Unknown Venipuncture / Unknown 08/20/2024 6:33 AM EST 08/20/2024 9:55 AM EST Yo Chambers MD LAB BLOOD ORDERABL ES [facility] ([facility]) [facility] LAB [address] [place] [address], documented in this encounter Visit Diagnoses Diagnosis Unspecified atrial fibrillation (CMS/HCC) documented in this encounter Care Teams Volunteer Services Director Relationship Specialty Start Date End Date Yo Chambers MD [address] [place] [address] PCP - General 05/19/21 documented as of this encounter
--- OUTSIDE RECORDS SUMMARY | 2024-09-18 14:21 | XMS_ITS | Encounter Summary ---
Author Organization [facility] Address [address] [place] [address] Care Team Providers Care Architectural Modeler Name Role Phone Unavailable Primary Care Provider Unavailabl e Encounter Details Date Type Department Care Team (Late st Contact Info) Description 08/29/2024 1:00 PM EST Office Visit [facility] Dental [address] [place] [address] Amaury Ordoñez DDS [address] [place] [address] Ill-fitting dentures (Primary Dx) Social History Tobacco [...] presents alone for limited exam of UR. Food Service Coordinator: No No chief complaint on file. Pt [...] Upcoming Encounters Date Type Department Care Team ([facility] st Contact Info) Description 09/21/2024 3:00 PM EST Office Visit [facility] [address] [place] [phone] Pop Newby [address] [place] [address] 10/24/2024 4:00 PM EST Office Visit [facility] [address] [place] [phone] Aneta FernándezisLEROYS [address] [place], [place] [phone] Scheduled Orders Name Type Priority Associated Diagnoses [...]
--- OUTSIDE RECORDS SUMMARY | 2024-09-18 14:21 | XMS_ITS | Encounter Summary ---
Author Organization [facility] Address [address] [place] [address] Care Team Providers Care Core Composer Feeder Name Role Phone Yo Chambers MD Primary Care Provider +1- [phone] Encounter Details Date Type Department Care Team (Late st Contact Info) Description 09/15/2024 Lab Requisition [facility] Lab [address] [facility] [place] [address] Yo Chambers MD [address] [place] [address] Unspecified atrial fibrillation (CMS/HCC) Social History Tobacco [...] LAB COAGULATION METHOD 09/17/2024 11:17 AM EST [facility] LAB INR 1.9 LAB COAGULATION METHOD 09/17/2024 11:17 AM EST [facility] LAB Blood Venous blood specimen / Unknown Venipuncture / Unknown 09/17/2024 5:34 AM EST 09/17/2024 10:39 AM EST Yo Chambers MD LAB BLOOD ORDERABL ES [facility]) [facility] LAB [address] [place] [address], documented in this encounter Visit Diagnoses Diagnosis Unspecified atrial fibrillation (CMS/HCC) documented in this encounter Care Teams Core Composer Feeder Relationship Specialty Start Date End Date Yo Chambers MD [address] [place] [address] PCP - General 05/19/21 documented as of this encounter
--- OUTSIDE RECORDS SUMMARY | 2024-09-18 14:21 | XMS_ITS | Encounter Summary ---
Author Organization [facility] Address [address] [place] [address] Care Team Providers Care Targeteer Name Role Phone Yo Chambers MD Primary Care Provider +1- [phone] Encounter Details Date Type Department Care Team (Late st Contact Info) Description 08/11/2024 Lab Requisition [facility] Lab [address] [facility] [place] [address] Yo Chambers MD [address] [place] [address] Unspecified atrial fibrillation (CMS/HCC) Social History Tobacco [...] LAB COAGULATION METHOD 08/13/2024 12:17 PM EST [facility] LAB INR 1.9 LAB COAGULATION METHOD 08/13/2024 12:17 PM EST [facility] LAB Blood Venous blood specimen / Unknown Venipuncture / Unknown 08/13/2024 6:11 AM EST 08/13/2024 11:54 AM EST Yo Chambers MD LAB BLOOD ORDERABL ES [facility] ([facility]) [facility] LAB [address] [place] [address], documented in this encounter Visit Diagnoses Diagnosis Unspecified atrial fibrillation (CMS/HCC) documented in this encounter Care Teams Targeteer Relationship Specialty Start Date End Date Yo Chambers MD [address] [place] [address] PCP - General 05/19/21 documented as of this encounter
--- OUTSIDE RECORDS SUMMARY | 2024-09-18 14:21 | XMS_ITS | Encounter Summary ---
Author Organization [facility] Address [address] [place] [address] Care Team Providers Care Sample Paster Name Role Phone Yo Chambers MD Primary Care Provider +1- [phone] Encounter Details Date Type Department Care Team (Late st Contact Info) Description 08/31/2024 Lab Requisition [facility] - Main Lab [address] [place] [address] Yo Chambers MD [address] [place] [address] Unspecified atrial fibrillation (CMS/HCC) Social History Tobacco [...] LAB COAGULATION METHOD 09/03/2024 11:15 AM EST [facility] LAB INR 2.4 LAB COAGULATION METHOD 09/03/2024 11:15 AM EST [facility] LAB Blood Venous blood specimen / Unknown Venipuncture / Unknown 09/03/2024 6:46 AM EST 09/03/2024 10:53 AM EST Yo Chambers MD LAB BLOOD ORDERABL ES [facility] ([facility]) [facility] LAB [address] [place] [address], documented in this encounter Visit Diagnoses Diagnosis Unspecified atrial fibrillation (CMS/HCC) documented in this encounter Care Teams Sample Paster Relationship Specialty Start Date End Date Yo Chambers MD [address] [place] [address] PCP - General 05/19/21 documented as of this encounter
--- OUTSIDE RECORDS SUMMARY | 2024-09-18 14:21 | XMS_ITS | Encounter Summary ---
Author Organization [facility] Address [address] [place] [address] Care Team Providers Care Sales And Marketing Executive Name Role Phone Yo Chambers MD Primary Care Provider +1- [phone] Encounter Details Date Type Department Care Team (Late st Contact Info) Description 06/23/2024 Lab Requisition [facility] - Main Lab [address] [facility] [place] [address] Yo Chambers MD [address] [place] [address] Chronic atrial fibrillation, unspecified (CMS/HCC); Unspecified atrial [...] Travel phlebotomy fee (06/25/2024 5:18 AM EST) [facility] TRAVEL PHLEBOTOMY FEE Completed 06/25/2024 10:01 AM EST [facility] LAB Blood Venous blood specimen / Unknown 06/25/2024 5:18 AM EST 06/25/2024 9:37 AM EST Yo Chambers MD LAB BLOOD ORDERABL ES Performing Organization Address City/[facility]/ZIP Co de Phone Number [facility] LAB [address] [place] [address], * (ABNORMAL) Prothrombin time with INR (06/25/2024 5:18 AM EST) Protime 30.0(H) 10.6 - 13.9 sec LAB COAGULATION METHOD 06/25/2024 11:[address] [facility] LAB INR 2.4 LAB COAGULATION METHOD 06/25/2024 11:[address] [facility] LAB Blood Venous blood specimen / Unknown Venipuncture / Unknown 06/25/2024 5:18 AM EST 06/25/2024 9:37 AM EST Yo Chambers MD LAB BLOOD ORDERABL ES Performing Organization Address City/[facility]/ZIP Co de Phone Number [facility] [address] [place] [address], documented in this encounter Visit Diagnoses Diagnosis Chronic atrial fibrillation, unspecified (CMS/HCC) Unspecified atrial fibrillation (CMS/HCC) documented in this encounter Care Teams Sales And Marketing Executive Relationship Specialty Start Date End Date Yo Chambers MD [address] [place] [address] PCP - General 05/19/21 documented as of this encounter
--- OUTSIDE RECORDS SUMMARY | 2024-09-18 14:21 | XMS_ITS | Encounter Summary ---
Author Organization [facility] Address [address] [place] [address] Care Team Providers Care Executive Creative Director Name Role Phone Yo Chambers MD Primary Care Provider +1- [phone] Encounter Details Date Type Department Care Team (Late st Contact Info) Description 09/12/2024 Lab Requisition [facility] - Main Lab [address] [place] [address] Yo Chambers MD [address] [place] [address] Unspecified atrial fibrillation (CMS/HCC) Social History Tobacco [...] LAB COAGULATION METHOD 09/13/2024 12:04 PM EST [facility] LAB INR 1.7 LAB COAGULATION METHOD 09/13/2024 12:04 PM [facility] LAB Blood Venous blood specimen / Unknown Venipuncture / Unknown 09/13/2024 7:23 AM EST 09/13/2024 10:57 AM EST Yo Chambers MD LAB BLOOD ORDERABL ES [facility] ([facility] LAB [address] [place] [address], documented in this encounter Visit Diagnoses Diagnosis Unspecified atrial fibrillation (CMS/HCC) documented in this encounter Care Teams Executive Creative Director Relationship Specialty Start Date End Date Yo Chambers MD [address] [place] [address] PCP - General 05/19/21 documented as of this encounter
--- OUTSIDE RECORDS SUMMARY | 2024-09-18 14:21 | XMS_ITS | Clinical Summary ---
Author Organization [facility] Address [address] [place] [address] Care Team Providers Care Knitting Machine Fixer Name Role Phone Unavailable Primary Care Provider [...] Description 09/05/2024 1:20 PM EST Office Visit [facility] [place] [phone] Alondra Song Encounter for dental examination (Primary Dx) 09/05/2024 Travel 08/31/2024 Dental Interim Note [facility] [address] [place] [address] Etienne Mehta DDS Encounter for dental examination (Primary Dx) 08/29/2024 1:00 PM EST Office Visit [facility] [place] [phone] Amaury Ordoñez DDS Ill-fitting dentures (Primary Dx) [...] Description 09/21/2024 3:00 PM EST Office Visit [facility] [address] [place] [phone] Pop Newby [address] [place] [address] 10/24/2024 4:00 PM EST Office Visit [facility] [address] [place] [phone] Saji Fernández DDS [address] [place] [address] Health Maintenance Due Date Last Done Comments [...] Bone Density Screening 2016 Falls Prevention 2016 [id number] (1 - 2023- season) 2024 Imm-Influenza (#1) [...] Ill-fitting dentures from Last 3 Months Insurance [place]
--- OUTSIDE RECORDS SUMMARY | 2024-09-18 14:21 | XMS_ITS | Encounter Summary ---
Author Organization [facility] Address [address] [place] [address] Care Team Providers Care Arson Investigator Name Role Phone Yo Chambers MD Primary Care Provider +1- [phone] Encounter Details Date Type Department Care Team (Late st Contact Info) Description 09/08/2024 Lab Requisition [facility] - Main Lab [address] [place] [address] Yo Chambers MD [address] [place] [address] Unspecified atrial fibrillation (CMS/HCC) Social History Tobacco [...] LAB COAGULATION METHOD 09/10/2024 1:16 PM EST [facility] LAB INR 3.9 LAB COAGULATION METHOD 09/10/2024 1:16 PM EST [facility] Blood Venous blood specimen / Unknown Venipuncture / Unknown 09/10/2024 7:46 AM EST 09/10/2024 12:11 PM EST Yo Chambers MD LAB BLOOD ORDERABL ES [facility] ([facility]) [facility] [address] [place] [address], documented in this encounter Visit Diagnoses Diagnosis Unspecified atrial fibrillation (CMS/HCC) documented in this encounter Care Teams Arson Investigator Relationship Specialty Start Date End Date Yo Chambers MD [address] [place] [address] PCP - General 05/19/21 documented as of this encounter
== END 2024-09-18 13:23 | disposition home or self-care (01) ==
LOC: HO.HAP 13:22
PROVIDERS: Visit Provider Internal Medicine
DX: Z46.1 Encounter for fitting and adjustment of hearing aid (principal); H90.3 Sensorineural hearing loss, bilateral
CPT/HCPCS: V5267

== ENCOUNTER 2024-12-06 12:43 | Outpatient (REF) | payer MEDICARE, MEDICAID, SELFPAY ==
--- OUTSIDE RECORDS SUMMARY | 2024-12-06 15:27 | XMS_ITS | Encounter Summary ---
Author Organization [facility] Address [address] [place] [address] Care Team Providers Care Grinder Brake Lining Name Role Phone Yo Chambers MD Primary Care Provider +1- [phone] Encounter Details Date Type Department Care Team (Late st Contact Info) Description 09/30/2024 Lab Requisition [facility] - Main Lab 299 [facility] [place] [address] Yo Chambers MD [address] [place] [address] Unspecified atrial fibrillation (CMS/HCC V24, CMS/HCC V28) Social History Tobacco Use Types Packs/Day Years Used Date Smoking Tobacco: Never Smokeless Tobacco: Never Alcohol Use Standard Drinks/Week Comments No 0 (1 standard drink = 0.6 oz pur e alcohol) Comments Unknown Sex and Gender Information Value Date Recorded Sex Assigned at Not on file Legal Sex Female 8:38 AM EST Gender Identity Not on file Sexual Orientation Not on file documented as of this encounter Plan of Treatment Upcoming Encounters Date Type Department Care Team (Late st Contact Info) Description 12/21/2024 2:30 PM EDT Office Visit [facility] [address] [place] [phone] Quang Barrios MD [address] [place] [address] DRIVE [address] [place] [address] documented as of this encounter Procedures Procedure Name Priority Date/Time Associated Diagnosis Comments PROTHROMBIN TIME WITH INR Routine 10/01/2024 7:06 AM EST Unspecified atrial fibrillation (CMS/HCC) documented in this encounter Results * (ABNORMAL) Prothrombin time with INR (10/01/2024 7:06 AM EST) Protime 22.3(H) 10.6 - 13.9 sec LAB COAGULATION METHOD 10/01/2024 12:19 PM EST [facility] INR 1.8 LAB COAGULATION METHOD 10/01/2024 12:19 PM EST [facility] Blood Venous blood specimen / Unknown Venipuncture / Unknown 10/01/2024 7:06 AM EST 10/01/2024 11:55 AM EST us Yo Chambers MD LAB BLOOD ORDERABLES Final Result [facility] [address] [place] [address], documented in this encounter Visit Diagnoses Diagnosis Unspecified atrial fibrillation (CMS/HCC V24, CMS/HCC V28) documented in this encounter Additional Health Concerns Infection Onset Date Last Indicated Resolved Time Influenza 10/07/2024 10/07/2024 10/31/2024 7:06 PM EDT Respiratory Rule-Out 10/08/2024 10/07/2024 025 2:58 PM EST documented as of this encounter Care Teams Grinder Brake Lining Relationship Specialty Start Date End Date Yo Chambers MD [address] [place] [address] PCP - General 05/19/21 documented as of this encounter
--- OUTSIDE RECORDS SUMMARY | 2024-12-06 15:27 | XMS_ITS | Encounter Summary ---
Author Organization [facility] Address [address] [place] [address] Care Team Providers Care Base Manager Name Role Phone Yo Chambers MD Primary Care Provider +1- [phone] Encounter Details Date Type Department Care Team (Late st Contact Info) Description 10/13/2024 Lab Requisition [facility] - Main Lab 299 [facility] [place] [address] Yo Chambers MD [address] [place] [address] Unspecified atrial fibrillation (CMS/HCC V24, CMS/HCC V28) [...] Description 12/21/2024 2:30 PM EDT Office Visit [facility] [address] [place] [phone] Quang Barrios MD [address] [place] [address] DRIVE [address] [place] [address] documented as of this encounter Procedures Procedure Name Priority Date/Time Associated Diagnosis Comments PROTHROMBIN TIME WITH INR Routine 10/15/2024 6:28 AM EST Unspecified atrial fibrillation (CMS/HCC) documented in this encounter Results * (ABNORMAL) Prothrombin time with INR (10/15/2024 6:28 AM EST) Protime 47.9(H) 10.6 - 13.9 sec LAB COAGULATION METHOD 10/15/2024 11:21 AM EST [facility] INR 3.9 LAB COAGULATION METHOD 10/15/2024 11:21 AM EST [facility] Blood Venous blood specimen / Unknown Venipuncture / Unknown 10/15/2024 6:28 AM EST 10/15/2024 10:57 AM EST us Yo Chambers MD LAB BLOOD ORDERABLES Final Result [facility] [address] [place] [address], documented in this encounter Visit Diagnoses Diagnosis Unspecified atrial fibrillation (CMS/HCC V24, CMS/HCC V28) documented in this encounter Additional Health Concerns Infection Onset Date Last Indicated Resolved Time Influenza 10/07/2024 10/07/2024 10/31/2024 7:06 PM EDT documented as of this encounter Care Teams Base Manager Relationship Specialty Start Date End Date Yo Chambers MD [address] [place] [address] PCP - General 05/19/21 documented as of this encounter
--- OUTSIDE RECORDS SUMMARY | 2024-12-06 15:27 | XMS_ITS | Encounter Summary ---
Author Organization [facility] Address [address] [place] [address] Care Team Providers Care Cistern Room Operator Name Role Phone Yo Chambers MD Primary Care Provider +1- [phone] Encounter Details Date Type Department Care Team (Late st Contact Info) Description 10/07/[address] [facility] - Main Lab 299 [facility] [place] [address] Yo Chambers MD [address] [place] [address] Unspecified atrial fibrillation (CMS/HCC V24, CMS/HCC V28) [...] Description 12/21/2024 2:30 PM EDT Office Visit [facility] [address] [place] [phone] Quang Barrios MD [address] [place] [address] [address] [place] [address] documented as of this encounter Procedures Procedure Name Priority Date/Time Associated Diagnosis Comments PROTHROMBIN TIME WITH INR Routine 10/08/2024 8:39 AM EST Unspecified atrial fibrillation (CMS/HCC) documented in this encounter Results * (ABNORMAL) Prothrombin time with INR (10/08/2024 8:39 AM EST) Protime 24.3(H) 10.6 - 13.9 sec LAB COAGULATION METHOD 10/08/2024 11:31 AM EST [facility] INR 2.0 LAB COAGULATION METHOD 10/08/2024 11:31 AM EST [facility] Blood Venous blood specimen / Unknown Venipuncture / Unknown 10/08/2024 8:39 AM EST 10/08/2024 10:57 AM EST Yo Chambers MD LAB BLOOD ORDERABLES Final Result [facility] [address] [place] [address], documented in this encounter Visit Diagnoses Diagnosis Unspecified atrial fibrillation (CMS/HCC V24, CMS/HCC V28) documented in this encounter Additional Health Concerns Infection Onset Date Last Indicated Resolved Time Influenza 10/07/2024 10/07/2024 10/31/2024 7:06 PM EDT Respiratory Rule-Out 10/08/2024 10/07/2024 025 2:58 PM EST documented as of this encounter Care Teams Cistern Room Operator Relationship Specialty Start Date End Date Yo Chambers MD [address] [place] [address] PCP - General 05/19/21 documented as of this encounter
--- OUTSIDE RECORDS SUMMARY | 2024-12-06 15:27 | XMS_ITS | Encounter Summary ---
Author Organization [facility] Address [address] [place] [address] Care Team Providers Care Bellhop Name Role Phone Yo Chambers MD Primary Care Provider +1- [phone] Encounter Details Date Type Department Care Team (Late st Contact Info) Description 10/08/2024 Lab Requisition [facility] - Main Lab 299 [facility] [place] [address] Yo Chambers MD [address] [place] [address] Fever, unspecified; Shortness of breath Social History Tobacco Use Types Packs/Day Years [...] Description 12/21/2024 2:30 PM EDT Office Visit [facility] Cardiology [facility] [address] [place] [address] Dr [address] [place] [address] Quang Barrios MD [address] [place] [address] [address] [place], [place] [phone] documented as of this encounter Procedures Procedure Name Priority Date/Time Associated Diagnosis Comments [id number], RSV, FLU A AND B QUALITATIVE RT-PCR, LOCAL REFERENCE LAB Routine 10/07/2024 12:00 AM EST Fever, unspecified Shortness of breath documented in this encounter Results * (ABNORMAL) [id number], RSV, Influenza A and B qualitative RT-PCR (10/07/2024 12:00 AM EST) SARS COV-2 Not Detected Not Detected LAB MOLECULAR DIAGNOSTICS METHOD 10/08/2024 2:58 PM [facility] Comment: Disclaimer: The manner in which this information is used to guide patient care is the responsibility of the healthcare provider. Testing was performed using the [employer] m SARS-CoV-2 test. This test has been authorized by FDA under an Emergency Use Authorization (EUA). This test is only authorized for the duration of time the declaration that circumstances exist justifying the authorization of the emergency use of in vitro diagnostic tests for detection of SARS-CoV-2 virus and/or diagnosis of COVID-19 infection under section 564(b)(1) of the Act, 21 U.S.C. 360bbb- 3(b)(1), unless the authorization is terminated or revoked sooner. Fact sheet for Healthcare Providers can be found at: https://www.fda.gov/media/524592/download Fact sheet for Patients can be found at: https://www.fda.gov/media/791547/download Influenza A PCR Detected(A ) Not Detected LAB MOLECULAR DIAGNOSTICS METHOD 10/08/2024 2:58 PM EST [facility] Comment:This patient is posi tive for influenza A. If the patient is admitted, please order the Respiratory Virus Panel PCR ([facility] ID: [id number]) so our lab can subtype the influenza A, per CDC recommendations. Influenza B PCR Not Detected Not Detected LAB MOLECULAR DIAGNOSTICS METHOD 10/08/2024 2:58 PM EST [facility] RSV PCR Not Detected Not Detected LAB MOLECULAR DIAGNOSTICS METHOD 10/08/2024 2:58 PM [facility] Swab Nasopharyngeal structure / Unknown Non-blood Collection / Unknown 10/07/2024 10/08/2024 10:57 AM EST us Yo B Jagadeesan MD LAB MICROBIOLOGY - GENERAL ORDERABLES Final Result [facility] [address] [place] [address], documented in this encounter Visit Diagnoses Diagnosis Fever, unspecified Shortness of breath documented in this encounter Additional Health Concerns Infection Onset Date Last Indicated Resolved Time Influenza 10/07/2024 10/07/2024 10/31/2024 7:06 PM EDT Respiratory Rule-Out 10/08/2024 10/07/2024 025 2:58 PM EST documented as of this encounter Care Teams Bellhop Relationship Specialty Start Date End Date Yo Chambers MD [address] [place] [address] PCP - General 05/19/21 documented as of this encounter
--- OUTSIDE RECORDS SUMMARY | 2024-12-06 15:28 | XMS_ITS | Encounter Summary ---
Author Organization [facility] Address [address] [place] [address] Care Team Providers Care Tax Professional Name Role Phone Yo Chambers MD Primary Care Provider +1- [phone] Encounter Details Date Type Department Care Team (Late st Contact Info) Description 07/28/[address] [facility] - Main Lab 299 [facility] [place] [address] Yo Chambers MD [address] [place] [address] Unspecified atrial fibrillation (CMS/HCC V24, CMS/HCC V28) [...] Description 12/21/2024 2:30 PM EDT Office Visit [facility] [address] [place] [phone] Quang Barrios MD [address] [place] [address] [address] [place] [address] documented as of this encounter Procedures Procedure Name Priority Date/Time Associated Diagnosis Comments PROTHROMBIN TIME WITH INR Routine 07/30/2024 5:53 AM EST Unspecified atrial fibrillation (CMS/HCC) documented in this encounter Results * (ABNORMAL) Prothrombin time with INR (07/30/2024 5:53 AM EST) Protime 26.6(H) 10.6 - 13.9 sec LAB COAGULATION METHOD 07/30/2024 11:[address] [facility] INR 2.1 LAB COAGULATION METHOD 07/30/2024 11:[address] [facility] Blood Venous blood specimen / Unknown Venipuncture / Unknown 07/30/2024 5:53 AM EST 07/30/2024 10:43 AM EST Yo Chambers MD LAB BLOOD ORDERABLES Final Result [facility] [address] [place] [address], documented in this encounter Visit Diagnoses Diagnosis Unspecified atrial fibrillation (CMS/HCC V24, CMS/HCC V28) documented in this encounter Additional Health Concerns Infection Onset Date Last Indicated Resolved Time Influenza 10/07/2024 10/07/2024 10/31/2024 7:06 PM EDT Respiratory Rule-Out 10/08/2024 10/07/2024 025 2:58 PM EST documented as of this encounter Care Teams Tax Professional Relationship Specialty Start Date End Date Yo Chambers MD [address] [place] [address] PCP - General 05/19/21 documented as of this encounter
--- OUTSIDE RECORDS SUMMARY | 2024-12-06 15:28 | XMS_ITS | Encounter Summary ---
Author Organization [facility] Address [address] [place] [address] Care Team Providers Care Tractor Trailer Operator Name Role Phone Yo Chambers MD Primary Care Provider +1- [phone] Encounter Details Date Type Department Care Team (Late st Contact Info) Description 10/17/2024 Lab Requisition [facility] - Main Lab 299 [facility] [place] [address] Yo Chambers MD [address] [place] [address] Unspecified atrial fibrillation (CMS/HCC V24, CMS/HCC V28) [...] Description 12/21/2024 2:30 PM EDT Office Visit [facility] [address] [place] [phone] Quang Barrios MD [address] [place] [address] [address] [place] [address] documented as of this encounter Procedures Procedure Name Priority Date/Time Associated Diagnosis Comments PROTHROMBIN TIME WITH INR Routine 10/18/2024 5:26 AM EST Unspecified atrial fibrillation (CMS/HCC) documented in this encounter Results * (ABNORMAL) Prothrombin time with INR (10/18/2024 5:26 AM EST) Protime 32.4(H) 10.6 - 13.9 sec LAB COAGULATION METHOD 10/18/2024 10:11 AM EST [facility] INR 2.6 LAB COAGULATION METHOD 10/18/2024 10:11 AM EST [facility] Blood Venous blood specimen / Unknown Venipuncture / Unknown 10/18/2024 5:26 AM EST 10/18/2024 8:37 AM EST us Yo Chambers MD LAB BLOOD ORDERABLES Final Result [facility] [address] [place] [address], documented in this encounter Visit Diagnoses Diagnosis Unspecified atrial fibrillation (CMS/HCC V24, CMS/HCC V28) documented in this encounter Additional Health Concerns Infection Onset Date Last Indicated Resolved Time Influenza 10/07/2024 10/07/2024 10/31/2024 7:06 PM EDT documented as of this encounter Care Teams Tractor Trailer Operator Relationship Specialty Start Date End Date Yo Chambers MD [address] [place] [address] PCP - General 05/19/21 documented as of this encounter
--- OUTSIDE RECORDS SUMMARY | 2024-12-06 15:28 | XMS_ITS | Encounter Summary ---
Author Organization [facility] Address [address] [place] [address] Care Team Providers Care Control Systems Technician Name Role Phone Yo Chambers MD Primary Care Provider +1- [phone] Encounter Details Date Type Department Care Team (Late st Contact Info) Description 10/20/2024 Lab Requisition [facility] - Main Lab 299 [facility] [place] [address] Yo Chambers MD [address] [place] [address] Unspecified atrial fibrillation (CMS/HCC V24, CMS/HCC V28) [...] Description 12/21/2024 2:30 PM EDT Office Visit [facility] [address] [place] [phone] Quang Barrios MD [address] [place] [address] [address] [place] [address] documented as of this encounter Procedures Procedure Name Priority Date/Time Associated Diagnosis Comments PROTHROMBIN TIME WITH INR Routine 10/22/2024 6:53 AM EST Unspecified atrial fibrillation (CMS/HCC) documented in this encounter Results * (ABNORMAL) Prothrombin time with INR (10/22/2024 6:53 AM EST) Protime 24.7(H) 10.6 - 13.9 sec LAB COAGULATION METHOD 10/22/2024 10:24 AM EST [facility] INR 2.0 LAB COAGULATION METHOD 10/22/2024 10:24 AM EST [facility] Blood Venous blood specimen / Unknown Venipuncture / Unknown 10/22/2024 6:53 AM EST 10/22/2024 10:10 AM EST us Yo Chambers MD LAB BLOOD ORDERABLES Final Result [facility] [address] [place] [address], documented in this encounter Visit Diagnoses Diagnosis Unspecified atrial fibrillation (CMS/HCC V24, CMS/HCC V28) documented in this encounter Additional Health Concerns Infection Onset Date Last Indicated Resolved Time Influenza 10/07/2024 10/07/2024 10/31/2024 7:06 PM EDT documented as of this encounter Care Teams Control Systems Technician Relationship Specialty Start Date End Date Yo Chambers MD [address] [place] [address] PCP - General 05/19/21 documented as of this encounter
--- OUTSIDE RECORDS SUMMARY | 2024-12-06 15:28 | XMS_ITS | Encounter Summary ---
Author Organization [facility] Address [address] [place] [address] Care Team Providers Care Manager Ccu Name Role Phone Yo Chambers MD Primary Care Provider +1- [phone] Encounter Details Date Type Department Care Team (Late st Contact Info) Description 08/24/2024 Lab Requisition [facility] - Main Lab 299 [facility] [place] [address] Yo Chambers MD [address] [place] [address] Unspecified atrial fibrillation (CMS/HCC V24, CMS/HCC V28) [...] Description 12/21/2024 2:30 PM EDT Office Visit [facility] [address] [place] [phone] Quang Barrios MD [address] [place] [address] [address]IVE [address] [place] [address] documented as of this encounter Procedures Procedure Name Priority Date/Time Associated Diagnosis Comments PROTHROMBIN TIME WITH INR Routine 08/27/2024 7:00 AM EST Unspecified atrial fibrillation (CMS/HCC) documented in this encounter Results * (ABNORMAL) Prothrombin time with INR (08/27/2024 7:00 AM EST) Protime 18.5(H) 10.6 - 13.9 sec LAB COAGULATION METHOD 08/27/2024 11:37 AM EST [facility] INR 1.5 LAB COAGULATION METHOD 08/27/2024 11:37 AM EST [facility] Blood Venous blood specimen / Unknown Venipuncture / Unknown 08/27/2024 7:00 AM EST 08/27/2024 10:49 AM EST Yo Chambers MD LAB BLOOD ORDERABLES Final Result [facility] [address] [place] [address], documented in this encounter Visit Diagnoses Diagnosis Unspecified atrial fibrillation (CMS/HCC V24, CMS/HCC V28) documented in this encounter Additional Health Concerns Infection Onset Date Last Indicated Resolved Time Influenza 10/07/2024 10/07/2024 10/31/2024 7:06 PM EDT Respiratory Rule-Out 10/08/2024 10/07/2024 025 2:58 PM EST documented as of this encounter Care Teams Manager Ccu Relationship Specialty Start Date End Date Yo Chambers MD [address] [place] [address] PCP - General 05/19/21 documented as of this encounter
--- OUTSIDE RECORDS SUMMARY | 2024-12-06 15:28 | XMS_ITS | Encounter Summary ---
Author Organization [facility] Address [address] [place] [address] Care Team Providers Care Clockmaker Apprentice Name Role Phone Yo Chambers MD Primary Care Provider +1- [phone] Encounter Details Date Type Department Care Team (Late st Contact Info) Description 06/29/2024 Lab Requisition [facility] - Main Lab 299 [facility] [place] [address] Yo Chambers MD [address] [place] [address] Unspecified atrial fibrillation (CMS/HCC V24, CMS/HCC V28) [...] Description 12/21/2024 2:30 PM EDT Office Visit [facility] [address] [place] [phone] Quang Barrios MD [address] [place] [address] [address]IVE [address] [place] [address] documented as of this encounter Visit Diagnoses Diagnosis Unspecified atrial fibrillation (CMS/HCC V24, CMS/HCC V28) documented in this encounter Additional Health Concerns Infection Onset Date Last Indicated Resolved Time Influenza 10/07/2024 10/07/2024 10/31/2024 7:06 PM EDT Respiratory Rule-Out 10/08/2024 10/07/2024 025 2:58 PM EST documented as of this encounter Care Teams Clockmaker Apprentice Relationship Specialty Start Date End Date Yo Chambers MD [address] [place] [address] PCP - General 05/19/21 documented as of this encounter
--- OUTSIDE RECORDS SUMMARY | 2024-12-06 15:28 | XMS_ITS | Encounter Summary ---
Author Organization [facility] Address [address] [place] [address] Care Team Providers Care Senior Communications Engineer Name Role Phone Yo Chambers MD Primary Care Provider +1- [phone] Encounter Details Date Type Department Care Team (Late st Contact Info) Description 07/07/2024 Lab Requisition [facility] - Main Lab 299 [facility] [place] [address] Yo Chambers MD [address] [place] [address] Hyperlipidemia, unspecified; Chronic kidney disease, stage 3 unspecified (CMS/HCC V24, CMS/HCC V28); Unspecified atrial fibrillation (CMS/HCC V24, CMS/HCC V28) [...] Description 12/21/2024 2:30 PM EDT Office Visit [facility] [address] [place] [address] Quang Barrios MD [address] [place] [address] [address]IVE [address] [place] [address] documented as of this encounter Procedures Procedure [...] Thyroid stimulating hormone (07/09/2024 6:04 AM EST) Pathologist [facility] TSH 1.92 0.40 - 4.00 mcIU/mL LAB CHEMISTRY METHOD 07/09/2024 11:55 AM EST [facility] Blood Venous blood specimen / Unknown Venipuncture / Unknown 07/09/2024 6:04 AM EST 07/09/2024 10:34 AM EST Yo Chambers MD LAB BLOOD ORDERABLES Final Result [facility] [address] [place] [address], [place] [phone] * (ABNORMAL) Comprehensive metabolic panel (07/09/2024 6:04 AM EST) [facility] Sodium 143 133 - 145 mmol/L LAB CHEMISTRY METHOD 07/09/2024 1:06 PM EST [facility] Potassium 4.1 3.5 - 5.5 mmol/L LAB CHEMISTRY METHOD 07/09/2024 1:06 PM EST [facility] Chloride 110 96 - 110 [...] 6:04 AM EST 07/09/2024 10:34 AM EST us Yo Chambers MD LAB BLOOD ORDERABLES Final Result [facility] [address] [place] [address], * (ABNORMAL) Complete blood count (07/09/2024 6:04 AM EST) WBC 5.0 4.8 - 10.8 K/mcL LAB HEMETOLOGY METHOD 07/09/2024 11:27 AM [facility] RBC 3.60(L) 3.80 - 4.80 M/[facility] LAB HEMETOLOGY METHOD 07/09/2024 11:27 AM [facility] [...] pcg LAB HEMETOLOGY METHOD 07/09/2024 11:27 AM [facility] MCHC 32.2 32.0 - 37.0 g/dL LAB HEMETOLOGY METHOD 07/09/2024 11:27 AM EST [facility] RDW 14.6 11.0 - 15.0 % LAB HEMETOLOGY METHOD 07/09/2024 11:27 AM EST [facility] Platelets 228 130 - 400 K/mcL LAB HEMETOLOGY METHOD 07/09/2024 11:27 AM EST [facility] MPV 11.1(H) 7.0 - 11.0 FL LAB HEMETOLOGY METHOD 07/09/2024 11:27 AM EST [facility] NRBC 0.0 <1.0 % LAB HEMETOLOGY METHOD 07/09/2024 11:27 AM EST [facility] NRBC Absolute 0.00 <0.10 K/mcL LAB HEMETOLOGY METHOD 07/09/2024 11:27 AM EST [facility] Blood Venous blood specimen / Unknown Venipuncture / Unknown 07/09/2024 6:04 AM EST 07/09/2024 10:40 AM EST Yo Chambers MD LAB BLOOD ORDERABLES Final Result [facility] [address] [place] [address], [place] [phone] * (ABNORMAL) Prothrombin time with INR (07/09/2024 6:04 AM EST) Protime 18.6(H) 10.6 - 13.9 sec LAB COAGULATION METHOD 07/09/2024 11:32 AM EST [facility] INR 1.5 LAB COAGULATION METHOD 07/09/2024 11:32 AM EST [facility] Blood Venous blood specimen / Unknown Venipuncture / Unknown 07/09/2024 6:04 AM EST 07/09/2024 10:34 AM EST Yo Chambers MD LAB BLOOD ORDERABLES Final Result [facility] LAB [address] [place] [address], documented in this encounter Visit Diagnoses Diagnosis Hyperlipidemia, unspecified Chronic kidney disease, stage 3 unspecified (CMS/[facility] V24, [facility] V28) Unspecified atrial fibrillation ([facility] V24, [facility] V28) documented in this encounter Additional Health Concerns Infection Onset Date Last Indicated Resolved Time Influenza 10/07/2024 10/07/2024 10/31/2024 7:06 PM EDT Respiratory Rule-Out 10/08/2024 10/07/2024 025 2:58 PM EST documented as of this encounter Care Teams Senior Communications Engineer Relationship Specialty Start Date End Date Yo Chambers MD [address] [place] [address] PCP - General 05/19/21 documented as of this encounter
--- OUTSIDE RECORDS SUMMARY | 2024-12-06 15:28 | XMS_ITS | Encounter Summary ---
Author Organization [facility] Address [address] [place] [address] Care Team Providers Care Commercial Construction Estimator Name Role Phone Yo Chambers MD Primary Care Provider +1- [phone] Encounter Details Date Type Department Care Team (Late st Contact Info) Description 07/13/2024 Lab Requisition [facility] - Main Lab 299 [facility] [place] [address] Yo Chambers MD [address] [place] [address] Unspecified atrial fibrillation (CMS/HCC V24, CMS/HCC V28) [...] Description 12/21/2024 2:30 PM EDT Office Visit [facility] [address] [place] [phone] Quang Barrios MD [address] [place] [address] [address] [place] [address] documented as of this encounter Procedures Procedure Name Priority Date/Time Associated Diagnosis Comments PROTHROMBIN TIME WITH INR Routine 07/16/2024 6:58 AM EST Unspecified atrial fibrillation (CMS/HCC) documented in this encounter Results * (ABNORMAL) Prothrombin time with INR (07/16/2024 6:58 AM EST) Protime 24.6(H) 10.6 - 13.9 sec LAB COAGULATION METHOD 07/16/2024 12:14 PM EST [facility] INR 2.0 LAB COAGULATION METHOD 07/16/2024 12:14 PM EST [facility] Blood Venous blood specimen / Unknown Venipuncture / Unknown 07/16/2024 6:58 AM EST 07/16/2024 11:16 AM EST Yo Chambers MD LAB BLOOD ORDERABLES Final Result [facility] [address] [place] [address], documented in this encounter Visit Diagnoses Diagnosis Unspecified atrial fibrillation (CMS/HCC V24, CMS/HCC V28) documented in this encounter Additional Health Concerns Infection Onset Date Last Indicated Resolved Time Influenza 10/07/2024 10/07/2024 10/31/2024 7:06 PM EDT Respiratory Rule-Out 10/08/2024 10/07/2024 025 2:58 PM EST documented as of this encounter Care Teams Commercial Construction Estimator Relationship Specialty Start Date End Date Yo Chambers MD [address] [place] [address] PCP - General 05/19/21 documented as of this encounter
--- OUTSIDE RECORDS SUMMARY | 2024-12-06 15:28 | XMS_ITS | Encounter Summary ---
Author Organization [facility] Address [address] [place] [address] Care Team Providers Care Auto Damage Insurance Appraiser Name Role Phone Yo Chambers MD Primary Care Provider +1- [phone] Encounter Details Date Type Department Care Team (Late st Contact Info) Description 09/15/2024 Lab Requisition [facility] - Main Lab 299 [facility] [place] [address] Yo Chambers MD [address] [place] [address] Unspecified atrial fibrillation (CMS/HCC V24, CMS/HCC V28) [...] Description 12/21/2024 2:30 PM EDT Office Visit [facility] [address] [place] [phone] Quang Barrios MD [address] [place] [address] DRIVE [address] [place] [address] documented as of this encounter Procedures Procedure Name Priority Date/Time Associated Diagnosis Comments PROTHROMBIN TIME WITH INR Routine 09/17/2024 5:34 AM EST Unspecified atrial fibrillation (CMS/HCC) documented in this encounter Results * (ABNORMAL) Prothrombin time with INR (09/17/2024 5:34 AM EST) Protime 23.9(H) 10.6 - 13.9 sec LAB COAGULATION METHOD 09/17/2024 11:17 AM EST [facility] INR 1.9 LAB COAGULATION METHOD 09/17/2024 11:17 AM EST [facility] Blood Venous blood specimen / Unknown Venipuncture / Unknown 09/17/2024 5:34 AM EST 09/17/2024 10:39 AM EST Yo Chambers MD LAB BLOOD ORDERABLES Final Result [facility] [address] [place] [address], documented in this encounter Visit Diagnoses Diagnosis Unspecified atrial fibrillation (CMS/HCC V24, CMS/HCC V28) documented in this encounter Additional Health Concerns Infection Onset Date Last Indicated Resolved Time Influenza 10/07/2024 10/07/2024 10/31/2024 7:06 PM EDT Respiratory Rule-Out 10/08/2024 10/07/2024 025 2:58 PM EST documented as of this encounter Care Teams Auto Damage Insurance Appraiser Relationship Specialty Start Date End Date Yo Chambers MD [address] [place] [address] PCP - General 05/19/21 documented as of this encounter
--- OUTSIDE RECORDS SUMMARY | 2024-12-06 15:28 | XMS_ITS | Encounter Summary ---
Author Organization [facility] Address [address] [place] [address] Care Team Providers Care Block Sorter Name Role Phone Yo Chambers MD Primary Care Provider +1- [phone] Encounter Details Date Type Department Care Team (Late st Contact Info) Description 09/08/2024 Lab Requisition [facility] - Main Lab 299 [facility] [place] [address] Yo Chambers MD [address] [place] [address] Unspecified atrial fibrillation (CMS/HCC V24, CMS/HCC V28) [...] Description 12/21/2024 2:30 PM EDT Office Visit [facility] [address] [place] [phone] Quang Barrios MD [address] [place] [address] DR[address] [place] [address] documented as of this encounter Procedures Procedure Name Priority Date/Time Associated Diagnosis Comments PROTHROMBIN TIME WITH INR Routine 09/10/2024 7:46 AM EST Unspecified atrial fibrillation (CMS/HCC) documented in this encounter Results * (ABNORMAL) Prothrombin time with INR (09/10/2024 7:46 AM EST) Protime 49.3(H) 10.6 - 13.9 sec LAB COAGULATION METHOD 09/10/2024 1:16 PM EST [facility] INR 3.9 LAB COAGULATION METHOD 09/10/2024 1:16 PM EST [facility] Blood Venous blood specimen / Unknown Venipuncture / Unknown 09/10/2024 7:46 AM EST 09/10/2024 12:11 PM EST Yo Chambers MD LAB BLOOD ORDERABLES Final Result [facility] [address] [place] [address], documented in this encounter Visit Diagnoses Diagnosis Unspecified atrial fibrillation (CMS/HCC V24, CMS/HCC V28) documented in this encounter Additional Health Concerns Infection Onset Date Last Indicated Resolved Time Influenza 10/07/2024 10/07/2024 10/31/2024 7:06 PM EDT Respiratory Rule-Out 10/08/2024 10/07/2024 025 2:58 PM EST documented as of this encounter Care Teams Block Sorter Relationship Specialty Start Date End Date Yo Chambers MD [address] [place] [address] PCP - General 05/19/21 documented as of this encounter
--- OUTSIDE RECORDS SUMMARY | 2024-12-06 15:28 | XMS_ITS | Encounter Summary ---
Author Organization [facility] Address [address] [place] [address] Care Team Providers Care Gray Mixing Operator Name Role Phone Yo Chambers MD Primary Care Provider +1- [phone] Encounter Details Date Type Department Care Team (Late st Contact Info) Description 07/21/2024 Lab Requisition [facility] - Main Lab 299 [facility] [place] [address] Yo Chambers MD [address] [place] [address] Chronic atrial fibrillation, unspecified (CMS/HCC V24, CMS/HCC V28); Unspecified atrial [...] Description 12/21/2024 2:30 PM EDT Office Visit [facility] [address] [place] [address] Dr [address] [place] [address] Quang Barrios MD [address] [place] [address] [address]IVE [address] [place] [address] documented as of this encounter Procedures Procedure Name Priority Date/Time Associated Diagnosis Comments PROTHROMBIN TIME WITH INR Routine 07/23/2024 6:45 AM EST Chronic atrial fibrillation, unspecified (CMS/HCC) Unspecified atrial fibrillation (CMS/HCC) documented in this encounter Results * (ABNORMAL) Prothrombin time with INR (07/23/2024 6:45 AM EST) Protime 25.6(H) 10.6 - 13.9 sec LAB COAGULATION METHOD 07/23/2024 12:11 PM EST [facility] INR 2.0 LAB COAGULATION METHOD 07/23/2024 12:11 PM EST [facility] Blood Venous blood specimen / Unknown Venipuncture / Unknown 07/23/2024 6:45 AM EST 07/23/2024 10:59 AM EST Yo Chambers MD LAB BLOOD ORDERABLES Final Result [facility] [address] [place] [address], documented in this encounter Visit Diagnoses Diagnosis Chronic atrial fibrillation, unspecified (CMS/HCC V24, CMS/HCC V28) Unspecified atrial fibrillation (CMS/HCC V24, CMS/HCC V28) documented in this encounter Additional Health Concerns Infection Onset Date Last Indicated Resolved Time Influenza 10/07/2024 10/07/2024 10/31/2024 7:06 PM EDT Respiratory Rule-Out 10/08/2024 10/07/2024 025 2:58 PM EST documented as of this encounter Care Teams Gray Mixing Operator Relationship Specialty Start Date End Date Yo Chambers MD [address] [place] [address] PCP - General 05/19/21 documented as of this encounter
--- OUTSIDE RECORDS SUMMARY | 2024-12-06 15:28 | XMS_ITS | Encounter Summary ---
Author Organization [facility] Address [address] [place] [address] Care Team Providers Care Soft Work Wrapper Layer And Examiner Name Role Phone Yo Chambers MD Primary Care Provider +1- [phone] Encounter Details Date Type Department Care Team (Late st Contact Info) Description 06/23/2024 Lab Requisition [facility] - Main Lab 299 [facility] [place] [address] Yo Chambers MD [address] [place] [address] Chronic atrial fibrillation, unspecified (CMS/HCC V24, CMS/HCC [...] Description 12/21/2024 2:30 PM EDT Office Visit [facility] [address] [place] [address] [address] [place] [address] Quang Barrios MD [address] [place] [address] [address]IVE [address] [place] [address] documented as of this encounter Procedures Procedure Name Priority Date/Time Associated Diagnosis Comments TRAVEL PHLEBOTOMY FEE Routine 06/25/2024 5:18 AM EST Chronic atrial fibrillation, unspecified (CMS/HCC) Unspecified atrial fibrillation (CMS/HCC) PROTHROMBIN TIME WITH INR Routine 06/25/2024 5:18 AM EST Chronic atrial fibrillation, unspecified (CMS/HCC) Unspecified atrial fibrillation (CMS/HCC) documented in this encounter Results * Travel phlebotomy fee (06/25/2024 5:18 AM EST) [facility] TRAVEL PHLEBOTOMY FEE Completed 06/25/2024 10:01 AM EST [facility] Blood Venous blood specimen / Unknown 06/25/2024 5:18 AM EST 06/25/2024 9:37 AM EST Yo Chambers MD LAB BLOOD ORDERABLES Final Result Performing Organization Address City/[facility]/ZIP Co de Phone Number [facility] [address] [place] [address], [place] [phone] * (ABNORMAL) Prothrombin time with INR (06/25/2024 5:18 AM EST) [facility] Protime 30.0(H) 10.6 - 13.9 sec LAB COAGULATION METHOD 06/25/2024 11:07 AM EST [facility] INR 2.4 LAB COAGULATION METHOD 06/25/2024 11:07 AM EST [facility] Blood Venous blood specimen / Unknown Venipuncture / Unknown 06/25/2024 5:18 AM EST 06/25/2024 9:37 AM EST us Yo Chambers MD LAB BLOOD ORDERABLES Final Result [facility] [address] [place] [address], [place] [phone] documented in this encounter Visit Diagnoses Diagnosis Chronic atrial fibrillation, unspecified (CMS/HCC V24, CMS/HCC V28) Unspecified atrial fibrillation (CMS/[facility] V24, [facility] V28) documented in this encounter Additional Health Concerns Infection Onset Date Last Indicated Resolved Time Influenza 10/07/2024 10/07/2024 10/31/2024 7:06 PM EDT Respiratory Rule-Out 10/08/2024 10/07/2024 025 2:58 PM EST documented as of this encounter Care Teams Soft Work Wrapper Layer And Examiner Relationship Specialty Start Date End Date Yo Chambers MD [address] [place] [address] PCP - General 05/19/21 documented as of this encounter
--- OUTSIDE RECORDS SUMMARY | 2024-12-06 15:28 | XMS_ITS | Encounter Summary ---
Author Organization [facility] [place] [facility] Address [address] [place] [address] Care Team Providers Care Dialysis Patient Care Technician Name Role Phone Yo Chambers MD Primary Care Provider +1- [phone] Encounter Details Date Type Department Care Team (Late st Contact Info) Description 11/18/2024 Lab Requisition [facility] - Main Lab 299 [facility] [place] [address] Yo Chambers MD [address] [place], [place] [phone] Unspecified atrial fibrillation (CMS/HCC V24, CMS/HCC V28) [...] Description 12/21/2024 2:30 PM EDT Office Visit [facility] [address] [place] [phone] Quang Barrios MD [address] [place] [address] DRIVE [address] [place] [address] documented as of this encounter Procedures Procedure Name Priority Date/Time Associated Diagnosis Comments PROTHROMBIN TIME WITH INR Routine 11/19/2024 5:29 AM EDT Unspecified atrial fibrillation (CMS/HCC) documented in this encounter Results * (ABNORMAL) Prothrombin time with INR (11/19/2024 5:29 AM EDT) Protime 18.9(H) 10.6 - 13.9 sec LAB COAGULATION METHOD 11/19/2024 10:58 AM EDT [facility] INR 1.5 LAB COAGULATION METHOD 11/19/2024 10:58 AM EDT [facility] Blood Venous blood specimen / Unknown Venipuncture / Unknown 11/19/2024 5:29 AM EDT 11/19/2024 10:25 AM EDT Yo Chambers MD LAB BLOOD ORDERABLES Final Result [facility] [address] [place] [address], documented in this encounter Visit Diagnoses Diagnosis Unspecified atrial fibrillation (CMS/HCC V24, CMS/HCC V28) documented in this encounter Care Teams Dialysis Patient Care Technician Relationship Specialty Start Date End Date Yo Chambers MD [address] [place] [address] PCP - General 05/19/21 documented as of this encounter
--- OUTSIDE RECORDS SUMMARY | 2024-12-06 15:28 | XMS_ITS | Encounter Summary ---
Author Organization [facility] Address [address] [place] [address] Care Team Providers Care Boiling Tub Operator Name Role Phone Yo Chambers MD Primary Care Provider +1- [phone] Encounter Details Date Type Department Care Team (Late st Contact Info) Description 10/28/[address] [facility] - Main Lab 299 [facility] [place] [address] Yo Chambers MD [address] [place] [address] Unspecified atrial fibrillation (CMS/HCC V24, CMS/HCC V28) [...] Description 12/21/2024 2:30 PM EDT Office Visit [facility] [address] [place] [phone] Quang Barrios MD [address] [place] [address] DRIVE [address] [place] [address] documented as of this encounter Procedures Procedure Name Priority Date/Time Associated Diagnosis Comments PROTHROMBIN TIME WITH INR Routine 10/29/2024 6:10 AM EDT Unspecified atrial fibrillation (CMS/HCC) documented in this encounter Results * (ABNORMAL) Prothrombin time with INR (10/29/2024 6:10 AM EDT) Protime 25.1(H) 10.6 - 13.9 sec LAB COAGULATION METHOD 10/29/2024 10:46 AM EDT [facility] INR 2.0 LAB COAGULATION METHOD 10/29/2024 10:46 AM EDT [facility] Blood Venous blood specimen / Unknown Venipuncture / Unknown 10/29/2024 6:10 AM EDT 10/29/2024 10:02 AM EDT Yo Chambers MD LAB BLOOD ORDERABLES Final Result [facility] [address] [place] [address], documented in this encounter Visit Diagnoses Diagnosis Unspecified atrial fibrillation (CMS/HCC V24, CMS/HCC V28) documented in this encounter Additional Health Concerns Infection Onset Date Last Indicated Resolved Time Influenza 10/07/2024 10/07/2024 10/31/2024 7:06 PM EDT documented as of this encounter Care Teams Boiling Tub Operator Relationship Specialty Start Date End Date Yo Chambers MD [address] [place] [address] PCP - General 05/19/21 documented as of this encounter
--- OUTSIDE RECORDS SUMMARY | 2024-12-06 15:28 | XMS_ITS | Clinical Summary ---
Author Organization [facility] Address [address] [place] [address] Phone Care Team Providers Care Engineering Technology Instructor Name Role Phone Yo Chambers MD Primary Care Provider +1- [phone] Medications No known medications Encounters Date Type Department Care Team Description 12/01/2024 Lab Requisition [facility] Lab [address] [place] [phone] Yo Chambers MD Unspecified atrial fibrillation (CMS/HCC V24, CMS/HCC V28) 11/26/2024 Lab Requisition [facility] Lab [address] [place] [phone] Yo Chambers MD Unspecified atrial fibrillation (CMS/HCC V24, CMS/HCC V28) 11/18/2024 Lab Requisition [facility] Lab [address] [place] [phone] Yo Chambers MD Unspecified atrial fibrillation (CMS/HCC V24, CMS/HCC V28) 11/10/2024 Lab Requisition [facility] Lab [address] [place] [phone] Yo Chambers MD Unspecified atrial fibrillation (CMS/HCC V24, CMS/HCC V28) 11/03/2024 Lab Requisition [facility] Lab [address] [place] [phone] Yo Chambers MD Unspecified atrial fibrillation (CMS/HCC V24, CMS/HCC V28) 11/03/2024 Lab Requisition [facility] Main Lab [address] [place] [phone] Yo Chambers MD Unspecified atrial fibrillation (CMS/HCC V24, CMS/HCC V28) 10/28/2024 Lab Requisition [facility] Lab [address] [place] [phone] Yo Chmabers MD Unspecified atrial fibrillation (CMS/HCC V24, CMS/HCC V28) 10/20/2024 Lab Requisition [facility] Lab [address] [place] [phone] Yo Chambers MD Unspecified atrial fibrillation ([facility]/HCC V24, CMS/[facility] V28) 10/17/2024 Lab Requisition [facility] Lab [address] [place] [phone] Yo Chambers MD Unspecified atrial fibrillation ([facility]/HCC V24, CMS/[facility] V28) 10/13/2024 Lab Requisition [facility] Lab [address] [place] [phone] Yo Chambers MD Unspecified atrial fibrillation ([facility] V24, CMS/HCC V28) 10/08/2024 Lab Requisition [facility] Lab [address] [place] [phone] Yo Chambers MD Fever, unspecified; Shortness of breath 10/07/2024 Lab Requisition [facility] Lab [address] [place] [phone] Yo Chambers MD Unspecified atrial fibrillation ([facility]/HCC V24, CMS/HCC V28) 09/30/2024 Lab Requisition [facility] Main Lab [address] [place] [phone] Yo Chambers MD Unspecified atrial fibrillation (CMS/HCC V24, CMS/[facility] V28) 09/22/2024 Lab Requisition [facility] Lab [address] [place] [address] Yo Chambers MD Unspecified atrial fibrillation ([facility]/HCC V24, CMS/HCC V28) 09/15/2024 Lab Requisition [facility] Lab [address] [place] [phone] Yo Chambers MD Unspecified atrial fibrillation ([facility] V24, [facility] V28) 09/12/2024 Lab Requisition [facility] Lab [address] [place] [address] Yo Chambers MD Unspecified atrial fibrillation ([facility] V24, [facility] V28) 09/08/2024 Lab Requisition [facility] Lab [address] [place] [phone] Yo Chambers MD Unspecified atrial fibrillation ([facility] V24, [facility] V28) from Last 3 Months Social History Tobacco [...] 11/30/2022 3:49 PM EDT Plan of Treatment Upcoming Encounters Date Type Department Care Team (Late st Contact Info) Description 12/21/2024 2:30 PM EDT Office Visit [facility] [address] [place] [address] [address] [place] [phone] Quang Barrios MD [address] [place] [address] DRIVE [address] [place] [address] Health Maintenance Due Date Last Done Comments Breast Cancer Screening 1950 Pneumococcal Vaccine: 50+ Years (1 of 2 - PCV) 1970 Zoster Vaccines (1 of 2) 2001 RSV Immunization Adult Patients (1 - Risk 60-74 years 1-dose series) 2011 DTaP,Tdap,and Td Vaccines (2 - Tdap) 07/28/2021 07/28/2011 Cholesterol Screening (Lipid Panel) 07/31/2022 Colorectal Cancer Screening: Colonoscopy 07/31/2022 Depression Screening 07/31/2022 Falls Risk Assessment 07/31/2022 Hepatitis C Screening 07/31/2022 Medicare Annual Wellness Visit 07/31/2022 Osteoporosis Screening (Bone Density Screening) 07/31/2022 Social Influencers of Health Screening 07/31/2022 COVID-19 Vaccine (1 - 2023-2 5 season) 2024 Influenza Vaccine (Season Ended) 2025 05/18/2013, 04/13/2012, 05/06/2011 Hypertension/CHF/CAD Annual BMP Blood Test [...] patient's age to complete this topic Meningococcal B Vaccine Aged Out No l onger eligible based on patient's age to complete this topic RSV Immunization Patients Under 20 months Aged Out No longer eligible b ased on patient's age to complete this topic Varicella Vaccines Aged Out No longer eligible based on patient's age to complete this topic Procedures Procedure Name Priority Date/Time Associated Diagnosis Comments PROTHROMBIN TIME WITH INR Routine 12/03/2024 6:30 AM EDT Unspecified atrial fibrillation (CMS/HCC V24, CMS/HCC V28) PROTHROMBIN TIME WITH INR Routine 11/26/2024 1:30 PM EDT Unspecified atrial fibrillation (CMS/HCC) PROTHROMBIN TIME WITH INR Routine 11/19/2024 5:29 AM EDT Unspecified atrial fibrillation (CMS/HCC) PROTHROMBIN TIME WITH INR Routine 11/12/2024 6:00 AM EDT Unspecified atrial fibrillation (CMS/HCC) PROTHROMBIN TIME WITH INR Routine 11/05/2024 6:52 AM EDT Unspecified atrial fibrillation (CMS/HCC) PROTHROMBIN TIME WITH INR Routine 10/29/2024 6:10 AM EDT Unspecified atrial fibrillation (CMS/HCC) PROTHROMBIN TIME WITH INR Routine 10/22/2024 6:53 AM EST Unspecified atrial fibrillation (CMS/HCC) PROTHROMBIN TIME WITH INR Routine 10/18/2024 5:26 AM EST Unspecified atrial fibrillation (CMS/HCC) PROTHROMBIN TIME WITH INR Routine 10/15/2024 6:28 AM EST Unspecified atrial fibrillation (CMS/HCC) PROTHROMBIN TIME WITH INR Routine 10/08/2024 8:39 AM EST Unspecified atrial fibrillation (CMS/HCC) [id number], RSV, FLU A AND B QUALITATIVE RT-PCR, LOCAL REFERENCE LAB Routine 10/07/2024 12:00 AM EST Fever, unspecified Shortness of breath PROTHROMBIN TIME WITH INR Routine 10/01/2024 7:06 AM EST Unspecified atrial fibrillation (CMS/HCC) PROTHROMBIN TIME WITH INR Routine 09/24/2024 4:52 AM EST Unspecified atrial fibrillation (CMS/HCC) PROTHROMBIN TIME WITH INR Routine 09/17/2024 5:34 AM EST Unspecified atrial fibrillation (CMS/HCC) PROTHROMBIN TIME WITH INR Routine 09/13/2024 7:23 AM EST Unspecified atrial fibrillation (CMS/HCC) PROTHROMBIN TIME WITH INR Routine 09/10/2024 7:46 AM EST Unspecified atrial fibrillation (CMS/HCC) COMPREHENSIVE METABOLIC PANEL Routine 07/09/2024 6:04 AM EST Hyperlipidemia, unspecified Chronic kidney disease, stage 3 unspecified (CMS/HCC) Unspecified atrial fibrillation (CMS/HCC) from Last 3 Months or Most Recently Relevant to Health Maintenance Results * (ABNORMAL) Prothrombin time with INR (12/03/2024 6:30 AM EDT) Only the most recent of15 resultswithin the time period is included. Protime 23.8(H) 10.6 - 13.9 sec LAB COAGULATION METHOD 12/03/2024 11:29 AM EDT [facility] INR 1.9 LAB COAGULATION METHOD 12/03/2024 11:29 AM EDT [facility] Blood Venous blood specimen / Unknown Venipuncture / Unknown 12/03/2024 6:30 AM EDT 12/03/2024 11:07 AM EDT us Yo Chambers MD LAB BLOOD ORDERABLES Final Result [facility] [address] [place] [address], [place] [phone] * (ABNORMAL) [id number], RSV, Influenza A and B qualitative RT-PCR (10/07/2024 12:00 AM EST) SARS COV-2 Not Detected Not Detected LAB MOLECULAR DIAGNOSTICS METHOD 10/08/2024 2:58 PM EST [facility] Comment: Disclaimer: The manner in which this information is used to guide patient care is the responsibility of the healthcare provider. Testing was performed using the [employer] m SARS-CoV-2 test. This test has [...] for Healthcare Providers can be found at: https://www.fda.gov/media/698575/download Fact sheet for Patients can be found at: https://www.fda.gov/media/027450/download Influenza A PCR Detected(A ) Not Detected LAB MOLECULAR DIAGNOSTICS METHOD 10/08/2024 2:58 PM EST [facility] Comment:This patient is posi tive for influenza A. If the patient is admitted, please order the Respiratory Virus Panel PCR (Epic ID: [id number]) so our lab can subtype the influenza A, per CDC recommendations. Influenza B PCR Not Detected Not Detected LAB MOLECULAR DIAGNOSTICS METHOD 10/08/2024 2:58 PM EST [facility] RSV PCR Not Detected Not Detected LAB MOLECULAR DIAGNOSTICS METHOD 10/08/2024 2:58 PM [facility] Swab Nasopharyngeal structure / Unknown Non-blood Collection / Unknown 10/07/2024 10/08/2024 10:57 AM EST us Yo Chambers MD LAB MICROBIOLOGY - GENERAL ORDERABLES Final Result [facility] [address] [place] [address], [place] [phone] * (ABNORMAL) Comprehensive metabolic panel (07/09/2024 6:04 AM EST) Sodium 143 133 - 145 mmol/L LAB CHEMISTRY METHOD 07/09/2024 1:06 PM [facility] Potassium 4.1 3.5 - 5.5 mmol/L LAB CHEMISTRY METHOD 07/09/2024 1:06 PM [facility] Chloride 110 96 - 110 mmol/L LAB CHEMISTRY METHOD 07/09/2024 1:06 PM [facility] CO2 23 21 - 32 mmol/L LAB CHEMISTRY METHOD 07/09/2024 1:06 PM [facility] Anion Gap 10 3 - 11 LAB CHEMISTRY METHOD 07/09/2024 1:06 PM [facility] Glucose 117(H) 70 - 100 mg/dL LAB CHEMISTRY METHOD 07/09/2024 1:06 PM [facility] BUN 11 5 - 25 mg/dL LAB CHEMISTRY METHOD 07/09/2024 1:06 PM [facility] Creatinine 0.95 0.50 - 1.10 mg/dL LAB CHEMISTRY METHOD 07/09/2024 1:06 PM [facility] eGFR 63 >=60 mL/min/1. 73m2 LAB CHEMISTRY METHOD 07/09/2024 1:06 PM [facility] Comment:Calculation based on the??Chronic Kidney Disease Epidemiology Collaboration (CKD-EPI) equation refit??without adjustment for race. BUN/Creatinine Ratio 11.6 LAB CHEMISTRY METHOD 07/09/2024 1:06 PM [facility] Calcium 8.7 8.5 - 10.5 mg/dL LAB CHEMISTRY METHOD 07/09/2024 1:06 PM [facility] AST (SGOT) 20 10 - 42 unit/L LAB CHEMISTRY METHOD 07/09/2024 1:06 PM [facility] ALT (SGPT) 27 10 - 60 unit/L LAB CHEMISTRY METHOD 07/09/2024 1:06 PM [facility] Alkaline Phosphatase 77 42 - 121 unit/L LAB CHEMISTRY METHOD 07/09/2024 1:06 PM [facility] Total Protein 5.6(L) 6.0 - 8.0 g/dL LAB CHEMISTRY METHOD 07/09/2024 1:06 PM [facility] Albumin 2.8(L) 3.2 - 5.0 g/dL LAB CHEMISTRY METHOD 07/09/2024 1:06 PM [facility] Total Bilirubin 0.3 0.0 - 1.4 mg/dL LAB CHEMISTRY METHOD 07/09/2024 1:06 PM [facility] Blood Venous blood specimen / Unknown Venipuncture / Unknown 07/09/2024 6:04 AM EST 07/09/2024 10:34 AM EST Yo Chambers MD LAB BLOOD ORDERABLES Final Result [facility] [address] [place] [address], from Last 3 Months or Most Recently Relevant to Health Maintenance Insurance MEDICARE MEDICAID - [place] Care Teams Engineering Technology Instructor Relationship Specialty Start Date End Date Yo Chambers MD [address] [place] [address] PCP - General 05/19/21
--- OUTSIDE RECORDS SUMMARY | 2024-12-06 15:28 | XMS_ITS | Encounter Summary ---
Author Organization [facility] Address [address] [place] [address] Care Team Providers Care Dust Sampler Name Role Phone Yo Chambers MD Primary Care Provider +1- [phone] Encounter Details Date Type Department Care Team (Late st Contact Info) Description 09/12/2024 Lab Requisition [facility] Main Lab [address] [facility] [place] [address] Yo Chambers MD [address] [place] [address] Unspecified atrial fibrillation (CMS/HCC V24, CMS/HCC V28) [...] Description 12/21/2024 2:30 PM EDT Office Visit [facility] [address] [place] [phone] Quang Barrios MD [address] [place] [address] DRIVE [address] [place] [address] documented as of this encounter Procedures Procedure [...] 1.7 LAB COAGULATION METHOD 09/13/2024 12:04 PM EST [facility] Blood Venous blood specimen / Unknown Venipuncture / Unknown 09/13/2024 7:23 AM EST 09/13/2024 10:57 AM EST us Yo Chambers MD LAB BLOOD ORDERABLES Final Result [facility] [address] [place] [address], documented in this encounter Visit Diagnoses Diagnosis Unspecified atrial fibrillation (CMS/HCC V24, CMS/HCC V28) documented in this encounter Additional Health Concerns Infection Onset Date Last Indicated Resolved Time Influenza 10/07/2024 10/07/2024 10/31/2024 7:06 PM EDT Respiratory Rule-Out 10/08/2024 10/07/2024 025 2:58 PM EST documented as of this encounter Care Teams Dust Sampler Relationship Specialty Start Date End Date Yo Chambers MD [address] [place] [address] PCP - General 05/19/21 documented as of this encounter
--- OUTSIDE RECORDS SUMMARY | 2024-12-06 15:28 | XMS_ITS | Encounter Summary ---
Author Organization [facility] Address [address] [place] [address] Care Team Providers Care Chief Maintenance Supervisor Name Role Phone Unavailable Primary Care Provider Unavailabl e Encounter Details Date Type Department Care Team (Late st Contact Info) Description 08/31/2024 Dental Interim Note [facility] [address] [place] [phone] Etienne Mehta DDS [address] [place] [address] Encounter for dental examination (Primary Dx) Social [...]
--- OUTSIDE RECORDS SUMMARY | 2024-12-06 15:28 | XMS_ITS | Encounter Summary ---
Author Organization [facility] Address [address] [place] [address] Care Team Providers Care Crib Clerk Name Role Phone Yo Chambers MD Primary Care Provider +1- [phone] Encounter Details Date Type Department Care Team (Late st Contact Info) Description 08/03/2024 Lab Requisition [facility] - Main Lab [address] [facility] [place] [address] Yo Chambers MD [address] [place] [address] Unspecified atrial fibrillation (CMS/HCC V24, CMS/HCC V28) [...] Description 12/21/2024 2:30 PM EDT Office Visit [facility] [address] [place] [address] Quang Barrios MD [address] [place] [address] DRIVE [address] [place] [address] documented as of this encounter Procedures Procedure Name Priority Date/Time Associated Diagnosis Comments PROTHROMBIN TIME WITH INR Routine 08/06/2024 6:06 AM EST Unspecified atrial fibrillation (CMS/HCC) documented in this encounter Results * (ABNORMAL) Prothrombin time with INR (08/06/2024 6:06 AM EST) Protime 21.2(H) 10.6 - 13.9 sec LAB COAGULATION METHOD 08/06/2024 12:13 PM EST [facility] INR 1.7 LAB COAGULATION METHOD 08/06/2024 12:13 PM EST [facility] Blood Venous blood specimen / Unknown Venipuncture / Unknown 08/06/2024 6:06 AM EST 08/06/2024 11:41 AM EST us Yo Chambers MD LAB BLOOD ORDERABLES Final Result [facility] [address] [place] [address], documented in this encounter Visit Diagnoses Diagnosis Unspecified atrial fibrillation (CMS/HCC V24, CMS/HCC V28) documented in this encounter Additional Health Concerns Infection Onset Date Last Indicated Resolved Time Influenza 10/07/2024 10/07/2024 10/31/2024 7:06 PM EDT Respiratory Rule-Out 10/08/2024 10/07/2024 025 2:58 PM EST documented as of this encounter Care Teams Crib Clerk Relationship Specialty Start Date End Date Yo Chambers MD [address] [place] [address] PCP - General 05/19/21 documented as of this encounter
--- OUTSIDE RECORDS SUMMARY | 2024-12-06 15:28 | XMS_ITS | Encounter Summary ---
Author Organization [facility] Address [address] [place] [address] Care Team Providers Care Backhoe Operator Name Role Phone Yo Chambers MD Primary Care Provider +1- [phone] Encounter Details Date Type Department Care Team (Late st Contact Info) Description 08/11/2024 Lab Requisition [facility] - Main Lab [address] [facility] [place] [address] Yo Chambers MD [address] [place] [address] Unspecified atrial fibrillation (CMS/HCC V24, CMS/HCC V28) [...] Description 12/21/2024 2:30 PM EDT Office Visit [facility] [address] [place] [phone] Quang Barrios MD [address] [place] [address] DRIVE [address] [place] [address] documented as of this encounter Procedures Procedure Name Priority Date/Time Associated Diagnosis Comments PROTHROMBIN TIME WITH INR Routine 08/13/2024 6:11 AM EST Unspecified atrial fibrillation (CMS/HCC) documented in this encounter Results * (ABNORMAL) Prothrombin time with INR (08/13/2024 6:11 AM EST) Protime 23.8(H) 10.6 - 13.9 sec LAB COAGULATION METHOD 08/13/2024 12:17 PM EST [facility] INR 1.9 LAB COAGULATION METHOD 08/13/2024 12:17 PM EST [facility] Blood Venous blood specimen / Unknown Venipuncture / Unknown 08/13/2024 6:11 AM EST 08/13/2024 11:54 AM EST us Yo Chambers MD LAB BLOOD ORDERABLES Final Result [facility] [address] [place] [address], documented in this encounter Visit Diagnoses Diagnosis Unspecified atrial fibrillation (CMS/HCC V24, CMS/HCC V28) documented in this encounter Additional Health Concerns Infection Onset Date Last Indicated Resolved Time Influenza 10/07/2024 10/07/2024 10/31/2024 7:06 PM EDT Respiratory Rule-Out 10/08/2024 10/07/2024 025 2:58 PM EST documented as of this encounter Care Teams Backhoe Operator Relationship Specialty Start Date End Date Yo Chambers MD [address] [place] [address] PCP - General 05/19/21 documented as of this encounter
--- OUTSIDE RECORDS SUMMARY | 2024-12-06 15:28 | XMS_ITS | Encounter Summary ---
Author Organization [facility] Address [address] [place] [address] Care Team Providers Care Assembly Leader Name Role Phone Yo Chambers MD Primary Care Provider +1- [phone] Encounter Details Date Type Department Care Team (Late st Contact Info) Description 09/22/2024 Lab Requisition [facility] - Main Lab [address] [facility] [place] [address] Yo Chambers MD [address] [place] [address] Unspecified atrial fibrillation (CMS/HCC V24, CMS/HCC V28) [...] Description 12/21/2024 2:30 PM EDT Office Visit [facility] [address] [place] [phone] Quang Barrios MD [address] [place] [address] [address] [place] [address] documented as of this encounter Procedures Procedure Name Priority Date/Time Associated Diagnosis Comments PROTHROMBIN TIME WITH INR Routine 09/24/2024 4:52 AM EST Unspecified atrial fibrillation (CMS/HCC) documented in this encounter Results * (ABNORMAL) Prothrombin time with INR (09/24/2024 4:52 AM EST) Protime 21.5(H) 10.6 - 13.9 sec LAB COAGULATION METHOD 09/24/2024 12:[address] [facility] INR 1.7 LAB COAGULATION METHOD 09/24/2024 12:[address] [facility] Blood Venous blood specimen / Unknown Venipuncture / Unknown 09/24/2024 4:52 AM EST 09/24/2024 12:06 PM EST us Yo Chambers MD LAB BLOOD ORDERABLES Final Result [facility] [address] [place] [address], documented in this encounter Visit Diagnoses Diagnosis Unspecified atrial fibrillation (CMS/HCC V24, CMS/HCC V28) documented in this encounter Additional Health Concerns Infection Onset Date Last Indicated Resolved Time Influenza 10/07/2024 10/07/2024 10/31/2024 7:06 PM EDT Respiratory Rule-Out 10/08/2024 10/07/2024 025 2:58 PM EST documented as of this encounter Care Teams Assembly Leader Relationship Specialty Start Date End Date Yo Chambers MD [address] [place] [address] PCP - General 05/19/21 documented as of this encounter
--- OUTSIDE RECORDS SUMMARY | 2024-12-06 15:28 | XMS_ITS | Encounter Summary ---
Author Organization [facility] Address [address] [place] [address] Care Team Providers Care Plastic Roller Name Role Phone Yo Chambers MD Primary Care Provider +1- [phone] Encounter Details Date Type Department Care Team (Late st Contact Info) Description 11/03/2024 Lab Requisition [facility] - Main Lab 299 [facility] [place] [address] Yo Chambers MD [address] [place] [address] Unspecified atrial fibrillation (CMS/HCC V24, CMS/HCC V28) [...] Description 12/21/2024 2:30 PM EDT Office Visit [facility] [address] [place] [phone] Quang Barrios MD [address] [place] [address] DRIVE [address] [place] [address] documented as of this encounter Procedures Procedure Name Priority Date/Time Associated Diagnosis Comments PROTHROMBIN TIME WITH INR Routine 11/05/2024 6:52 AM EDT Unspecified atrial fibrillation (CMS/HCC) documented in this encounter Results * (ABNORMAL) Prothrombin time with INR (11/05/2024 6:52 AM EDT) Protime 32.1(H) 10.6 - 13.9 sec LAB COAGULATION METHOD 11/05/2024 12:15 PM EDT [facility] INR 2.6 LAB COAGULATION METHOD 11/05/2024 12:15 PM EDT [facility] Blood Venous blood specimen / Unknown Venipuncture / Unknown 11/05/2024 6:52 AM EDT 11/05/2024 11:49 AM EDT Yo Chambers MD LAB BLOOD ORDERABLES Final Result [facility] [address] [place] [address], documented in this encounter Visit Diagnoses Diagnosis Unspecified atrial fibrillation (CMS/HCC V24, CMS/HCC V28) documented in this encounter Care Teams Plastic Roller Relationship Specialty Start Date End Date Yo Chambers MD [address] [place] [address] PCP - General 05/19/21 documented as of this encounter
--- OUTSIDE RECORDS SUMMARY | 2024-12-06 15:28 | XMS_ITS | Encounter Summary ---
Author Organization [facility] Address [address] [place] [address] Care Team Providers Care Emergency Service Worker Name Role Phone Yo Chambers MD Primary Care Provider +1- [phone] Encounter Details Date Type Department Care Team (Late st Contact Info) Description 11/26/2024 Lab Requisition [facility] - Main Lab [address] [facility] [place] [address] Yo Chambers MD [address] [place], [place] [phone] Unspecified atrial fibrillation (CMS/HCC V24, CMS/HCC V28) [...] Description 12/21/2024 2:30 PM EDT Office Visit [facility] [address] [place] [phone] Quang Barrios MD [address] [place] [address] DRIVE [address] [place] [address] documented as of this encounter Procedures Procedure Name Priority Date/Time Associated Diagnosis Comments PROTHROMBIN TIME WITH INR Routine 11/26/2024 1:30 PM EDT Unspecified atrial fibrillation (CMS/HCC) documented in this encounter Results * (ABNORMAL) Prothrombin time with INR (11/26/2024 1:30 PM EDT) Protime 21.4(H) 10.6 - 13.9 sec LAB COAGULATION METHOD 11/26/2024 2:19 PM EDT [facility] INR 1.7 LAB COAGULATION METHOD 11/26/2024 2:19 PM EDT [facility] Blood Venous blood specimen / Unknown Venipuncture / Unknown 11/26/2024 1:30 PM EDT 11/26/2024 2:00 PM EDT Yo Chambers MD LAB BLOOD ORDERABLES Final Result [facility] [address] [place] [address], documented in this encounter Visit Diagnoses Diagnosis Unspecified atrial fibrillation (CMS/HCC V24, CMS/HCC V28) documented in this encounter Care Teams Emergency Service Worker Relationship Specialty Start Date End Date Yo Chambers MD [address] [place] [address] PCP - General 05/19/21 documented as of this encounter
--- OUTSIDE RECORDS SUMMARY | 2024-12-06 15:28 | XMS_ITS | Encounter Summary ---
Author Organization [facility] Address [address] [place] [address] Care Team Providers Care Information Security Risk Analyst Name Role Phone Yo Chambers MD Primary Care Provider +1- [phone] Encounter Details Date Type Department Care Team (Late st Contact Info) Description 11/10/2024 Lab Requisition [facility] - Main Lab 299 [facility] [place] [address] Yo Chambers MD [address] [place] [address] Unspecified atrial fibrillation (CMS/HCC V24, CMS/HCC V28) [...] Description 12/21/2024 2:30 PM EDT Office Visit [facility] [address] [place] [phone] Quang Barrios MD [address] [place] [address] [address] [place] [address] documented as of this encounter Procedures Procedure Name Priority Date/Time Associated Diagnosis Comments PROTHROMBIN TIME WITH INR Routine 11/12/2024 6:00 AM EDT Unspecified atrial fibrillation (CMS/HCC) documented in this encounter Results * (ABNORMAL) Prothrombin time with INR (11/12/2024 6:00 AM EDT) Protime 25.0(H) 10.6 - 13.9 sec LAB COAGULATION METHOD 11/12/2024 11:12 AM EDT [facility] INR 2.0 LAB COAGULATION METHOD 11/12/2024 11:12 AM EDT [facility] Blood Venous blood specimen / Unknown Venipuncture / Unknown 11/12/2024 6:00 AM EDT 11/12/2024 10:43 AM EDT Yo Chambers MD LAB BLOOD ORDERABLES Final Result [facility] [address] [place] [address], documented in this encounter Visit Diagnoses Diagnosis Unspecified atrial fibrillation (CMS/HCC V24, CMS/HCC V28) documented in this encounter Care Teams Information Security Risk Analyst Relationship Specialty Start Date End Date Yo Chambers MD [address] [place] [address] PCP - General 05/19/21 documented as of this encounter
--- OUTSIDE RECORDS SUMMARY | 2024-12-06 15:28 | XMS_ITS | Encounter Summary ---
Author Organization [facility] Address [address] [place] [address] Care Team Providers Care Rn Baby Name Role Phone Yo Chambers MD Primary Care Provider +1- [phone] Encounter Details Date Type Department Care Team (Late st Contact Info) Description 08/17/2024 Lab Requisition [facility] - Main Lab [address] [facility] [place] [address] Yo Chambers MD [address] [place] [address] Unspecified atrial fibrillation (CMS/HCC V24, CMS/HCC V28) [...] Description 12/21/2024 2:30 PM EDT Office Visit [facility] [address] [place] [phone] Quang Barrios MD [address] [place] [address] DR[address] [place] [address] documented as of this encounter Procedures Procedure Name Priority Date/Time Associated Diagnosis Comments PROTHROMBIN TIME WITH INR Routine 08/20/2024 6:33 AM EST Unspecified atrial fibrillation (CMS/HCC) documented in this encounter Results * (ABNORMAL) Prothrombin time with INR (08/20/2024 6:33 AM EST) Protime 26.8(H) 10.6 - 13.9 sec LAB COAGULATION METHOD 08/20/2024 10:18 AM EST [facility] INR 2.1 LAB COAGULATION METHOD 08/20/2024 10:18 AM EST [facility] Blood Venous blood specimen / Unknown Venipuncture / Unknown 08/20/2024 6:33 AM EST 08/20/2024 9:55 AM EST us Yo Chambers MD LAB BLOOD ORDERABLES Final Result [facility] [address] [place] [address], documented in this encounter Visit Diagnoses Diagnosis Unspecified atrial fibrillation (CMS/HCC V24, CMS/HCC V28) documented in this encounter Additional Health Concerns Infection Onset Date Last Indicated Resolved Time Influenza 10/07/2024 10/07/2024 10/31/2024 7:06 PM EDT Respiratory Rule-Out 10/08/2024 10/07/2024 025 2:58 PM EST documented as of this encounter Care Teams Rn Baby Relationship Specialty Start Date End Date Yo Chambers MD [address] [place] [address] PCP - General 05/19/21 documented as of this encounter
--- OUTSIDE RECORDS SUMMARY | 2024-12-06 15:28 | XMS_ITS | Encounter Summary ---
Author Organization [facility] Address [address] [place] [address] Care Team Providers Care Loop Cutter Name Role Phone Yo Chambers MD Primary Care Provider +1- [phone] Encounter Details Date Type Department Care Team (Late st Contact Info) Description 11/03/2024 Lab Requisition [facility] - Main Lab 299 [facility] [place] [address] Yo Chambers MD [address] [place] [address] Unspecified atrial fibrillation (CMS/HCC V24, CMS/HCC V28) [...] 12/21/2024 2:30 PM EDT Office Visit [facility] [address] [place] [phone] Quang Barrios MD [address] [place] [address] [address] [place] [address] documented as of this encounter Visit Diagnoses Diagnosis Unspecified atrial fibrillation (CMS/HCC V24, CMS/HCC V28) documented in this encounter Care Teams Loop Cutter Relationship Specialty Start Date End Date Yo Chambers MD [address] [facility] [place] [address] PCP - General 05/19/21 documented as of this encounter
--- OUTSIDE RECORDS SUMMARY | 2024-12-06 15:28 | XMS_ITS | Encounter Summary ---
Author Organization [facility] Address [address] [place] [address] Care Team Providers Care Electronic Warfare Officer Name Role Phone Yo Chambers MD Primary Care Provider +1- [phone] Encounter Details Date Type Department Care Team (Late st Contact Info) Description 08/31/2024 Lab Requisition [facility] - Main Lab 299 [facility] [place] [address] Yo Chambers MD [address] [place] [address] Unspecified atrial fibrillation (CMS/HCC V24, CMS/HCC V28) [...] Description 12/21/2024 2:30 PM EDT Office Visit [facility] [address] [place] [address] [address] [place] [phone] Quang Barrios MD [address] [place] [address] [address]IVE [address] [place] [address] documented as of this encounter Procedures Procedure Name Priority Date/Time Associated Diagnosis Comments PROTHROMBIN TIME WITH INR Routine 09/03/2024 6:46 AM EST Unspecified atrial fibrillation (CMS/HCC) documented in this encounter Results * (ABNORMAL) Prothrombin time with INR (09/03/2024 6:46 AM EST) Protime 30.6(H) 10.6 - 13.9 sec LAB COAGULATION METHOD 09/03/2024 11:15 AM EST [facility] INR 2.4 LAB COAGULATION METHOD 09/03/2024 11:15 AM EST [facility] Blood Venous blood specimen / Unknown Venipuncture / Unknown 09/03/2024 6:46 AM EST 09/03/2024 10:53 AM EST us Yo Chambers MD LAB BLOOD ORDERABLES Final Result [facility] [address] [place] [address], documented in this encounter Visit Diagnoses Diagnosis Unspecified atrial fibrillation (CMS/HCC V24, CMS/HCC V28) documented in this encounter Additional Health Concerns Infection Onset Date Last Indicated Resolved Time Influenza 10/07/2024 10/07/2024 10/31/2024 7:06 PM EDT Respiratory Rule-Out 10/08/2024 10/07/2024 025 2:58 PM EST documented as of this encounter Care Teams Electronic Warfare Officer Relationship Specialty Start Date End Date Yo Chambers MD [address] [place] [address] PCP - General 05/19/21 documented as of this encounter
--- OUTSIDE RECORDS SUMMARY | 2024-12-06 15:28 | XMS_ITS | Encounter Summary ---
Author Organization [facility] Address [address] [place] [address] Care Team Providers Care Manager Cafe Name Role Phone Yo Chambers MD Primary Care Provider +1- [phone] Encounter Details Date Type Department Care Team (Late st Contact Info) Description 12/01/2024 Lab Requisition [facility] - Main Lab 299 [facility] [place] [address] Yo Chambers MD [address] [place] [address] Unspecified atrial fibrillation (CMS/HCC V24, CMS/HCC V28) [...] 12/21/2024 2:30 PM EDT Office Visit [facility] [address] [place] [phone] Quang Barrios MD [address] [place] [address] [address] [place] [address] documented as of this encounter Procedures Procedure Name Priority Date/Time Associated Diagnosis Comments PROTHROMBIN TIME WITH INR Routine 12/03/2024 6:30 AM EDT Unspecified atrial fibrillation (CMS/HCC V24, CMS/HCC V28) documented in this encounter Results * (ABNORMAL) Prothrombin time with INR (12/03/2024 6:30 AM EDT) Protime 23.8(H) 10.6 - 13.9 sec LAB COAGULATION METHOD 12/03/2024 11:29 AM EDT [facility] INR 1.9 LAB COAGULATION METHOD 12/03/2024 11:29 AM EDT [facility] Blood Venous blood specimen / Unknown Venipuncture / Unknown 12/03/2024 6:30 AM EDT 12/03/2024 11:07 AM EDT Yo Chambers MD LAB BLOOD ORDERABLES Final Result [facility] [address] [place] [address], documented in this encounter Visit Diagnoses Diagnosis Unspecified atrial fibrillation (CMS/HCC V24, CMS/HCC V28) documented in this encounter Care Teams Manager Cafe Relationship Specialty Start Date End Date Yo Chambers MD [address] [place] [address] PCP - General 05/19/21 documented as of this encounter
--- OUTSIDE RECORDS SUMMARY | 2024-12-06 15:28 | XMS_ITS | Clinical Summary ---
Author Organization [facility] Address [address] [place] [address] Care Team Providers Care Data Entry Analyst Name Role Phone Unavailable Primary Care Provider Unavailabl e Source Comments PLEASE NOTE, if this patient is a minor, it may be UNLAWFUL to discuss sensitive information that is contained in these records (such as FAMILY PLANNING, MENTAL HEALTH or SUBSTANCE ABUSE) with the minor patient's parent or other person without the patient's specific authorization.[facility] Medications No known medications Active Problems No known active problems Social History Tobacco Use Types Packs/Day Years Used Date Smoking Tobacco: Never Assessed Comments Unknown Sex and Gender Information Value Date Recorded Sex Assigned at Not on file Legal Sex Female 8:12 AM PDT Gender Identity Not on file Sexual Orientation Not on file Last Filed Vital Signs Vital Sign Reading Time Taken Comments Blood Pressure 131/80 08/29/2024 1:17 PM EST Pulse 63 08/29/2024 1:17 PM EST Temperature - - Respiratory Rate - - Oxygen Saturation - - Inhaled Oxygen Concentration - - Weight - - Height - - Body Mass Index - - Plan of Treatment Health Maintenance Due Date Last Done Comments Hepatitis C Screening 1950 Lipid Screening 1950 Tobacco Screening 1950 Imm-DTaP/Tdap/Td (1 - Tdap) 1970 Breast Cancer Screening (Mammogram) 1991 CT Colonography 1996 Colonoscopy 1996 Colorectal Cancer Screening 1996 FIT/gFOBT 1996 Fecal DNA 1996 Flexible Sigmoidoscopy 1996 Imm-Pneumococcal 65+ (1 of 1 - PCV) 2001 Imm-Zoster, Recombinant (1 of 2) 2001 Bone Density Screening 2016 Falls Prevention 2016 [id number] (2023- season) 2024 Imm-Influenza (#1) 2024 Alcohol and Drug Screen 08/22/2024 Depression Annual Screen 08/22/2024 Hypertension Screening (#1) 08/29/2025 Insurance [place]
--- OUTSIDE RECORDS SUMMARY | 2024-12-06 15:28 | XMS_ITS | Encounter Summary ---
Author Organization [facility] Address [address] [place] [address] Care Team Providers Care Director Pharmacy Services Name Role Phone Yo Chambers MD Primary Care Provider +1- [phone] Encounter Details Date Type Department Care Team (Late st Contact Info) Description 06/29/2024 Lab Requisition [facility] - Main Lab 299 [facility] [place] [address] Yo Chambers MD [address] [place] [address] Unspecified atrial fibrillation (CMS/HCC V24, CMS/HCC V28) [...] Description 12/21/2024 2:30 PM EDT Office Visit [facility] [address] [place] [phone] Quang Barrios MD [address] [place] [address] [address]IVE [address] [place] [address] documented as of this encounter Procedures Procedure Name Priority Date/Time Associated Diagnosis Comments PROTHROMBIN TIME WITH INR Routine 07/02/2024 4:56 AM EST Unspecified atrial fibrillation (CMS/HCC) documented in this encounter Results * (ABNORMAL) Prothrombin time with INR (07/02/2024 4:56 AM EST) Protime 27.3(H) 10.6 - 13.9 sec LAB COAGULATION METHOD 07/02/2024 9:07 AM EST [facility] INR 2.2 LAB COAGULATION METHOD 07/02/2024 9:07 AM EST [facility] Blood Venous blood specimen / Unknown Venipuncture / Unknown 07/02/2024 4:56 AM EST 07/02/2024 8:11 AM EST Yo Chambers MD LAB BLOOD ORDERABLES Final Result [facility] [address] [place] [address], documented in this encounter Visit Diagnoses Diagnosis Unspecified atrial fibrillation (CMS/HCC V24, CMS/HCC V28) documented in this encounter Additional Health Concerns Infection Onset Date Last Indicated Resolved Time Influenza 10/07/2024 10/07/2024 10/31/2024 7:06 PM EDT Respiratory Rule-Out 10/08/2024 10/07/2024 025 2:58 PM EST documented as of this encounter Care Teams Director Pharmacy Services Relationship Specialty Start Date End Date Yo Chambers MD [address] [place] [address] PCP - General 05/19/21 documented as of this encounter
== END 2024-12-06 12:44 | disposition home or self-care (01) ==
LOC: HO.SH 12:43
PROVIDERS: Visit Provider Internal Medicine
DX: Z01.118 Encounter for examination of ears and hearing with other abnormal findings (principal); Z46.1 Encounter for fitting and adjustment of hearing aid; H90.3 Sensorineural hearing loss, bilateral
CPT/HCPCS: 92593; V5266

== ENCOUNTER 2025-03-29 16:22 | Outpatient (REF) | payer MEDICARE, MEDICAID, SELFPAY | END 2025-03-29 16:23 | disposition home or self-care (01) | LOC: HO.HAP 16:22 | PROVIDERS: Visit Provider Internal Medicine | DX: H90.3 Sensorineural hearing loss, bilateral (principal) | CPT/HCPCS: V5266 ==

== ENCOUNTER 2025-03-29 16:28 | Outpatient (REF) | payer SELFPAY ==
--- OUTSIDE RECORDS SUMMARY | 2025-03-29 16:30 | XMS_ITS | Clinical Summary ---
Author Organization [facility] Address [address] [place] [address] Care Team Providers Care Presentation Team Member Name Role Phone Unavailable Primary Care Provider [...] Fecal DNA 1996 Flexible Sigmoidoscopy 1996 Imm-Pneumococcal 50+ (1 of 1 - PCV) 2001 Imm-Zoster, Recombinant (1 of 2) 2001 Bone Density Screening 2016 Falls Prevention 2016 [id number] (2023- season) 2024 Alcohol and Drug Screen 08/22/2024 Depression Annual Screen 08/22/2024 Imm-Influenza (#1) 2025 Hypertension Screening (#1) 08/29/2025 Insurance [place]
--- OUTSIDE RECORDS SUMMARY | 2025-03-29 16:30 | XMS_ITS | Encounter Summary ---
Author Organization [facility] Address [address] [place] [address] Care Team Providers Care Floral Department Specialist Name Role Phone Yo Chambers MD Primary Care Provider +1- [phone] Encounter Details Date Type Department Care Team (Late st Contact Info) Description 12/22/2024 Lab Requisition [facility] - Main Lab 299 [facility] [place] [address] Yo Chambers MD [address] [place] [address] Unspecified atrial fibrillation (CMS/HCC V24, CMS/HCC V28) [...] Care Team (Late st Contact Info) Description 06/24/2025 2:10 PM EST Office Visit [facility] [address] [place] [phone] Allyson Estrada NP [address] [place] [address] [address] [place] [address] documented as of this encounter Procedures Procedure Name Priority Date/Time Associated Diagnosis Comments PROTHROMBIN TIME WITH INR Routine 12/24/2024 5:40 AM EDT Unspecified atrial fibrillation (CMS/HCC V24, CMS/HCC V28) documented in this encounter Results * (ABNORMAL) Prothrombin time with INR (12/24/2024 5:40 AM EDT) Protime 19.4(H) 10.6 - 13.9 sec LAB COAGULATION METHOD 12/24/2024 8:21 AM EDT [facility] INR 1.6 LAB COAGULATION METHOD 12/24/2024 8:21 AM EDT [facility] Blood Venous blood specimen / Unknown Venipuncture / Unknown 12/24/2024 5:40 AM EDT 12/24/2024 7:47 AM EDT Yo Chambers MD LAB BLOOD ORDERABLES Final Result [facility] [address] [place] [address], documented in this encounter Visit Diagnoses Diagnosis Unspecified atrial fibrillation (CMS/HCC V24, CMS/HCC V28) documented in this encounter Care Teams Floral Department Specialist Relationship Specialty Start Date End Date Yo Chambers MD [address] [place] [address] PCP - General 05/19/21 documented as of this encounter
== END 2025-03-29 16:29 | disposition home or self-care (01) ==
LOC: HO.SH 16:28
PROVIDERS: Visit Provider Internal Medicine
DX: Z01.118 Encounter for examination of ears and hearing with other abnormal findings (principal); H90.3 Sensorineural hearing loss, bilateral
CPT/HCPCS: V5267

== ENCOUNTER 2025-06-24 15:57 | Outpatient (REF) | payer MEDICARE, MEDICAID, SELFPAY ==
--- OUTSIDE RECORDS SUMMARY | 2025-06-24 14:10 | XMS_ITS | Encounter Summary ---
Author Organization [facility] Address [address] [place] [address] Care Team Providers Care Medical Transport Specialist Name Role Phone Yo Chambers MD Primary Care Provider +1- [phone] Reason for Visit * Reason Comments Follow-up Encounter Details Date Type Department Care Team (Late st Contact Info) Description 06/24/2025 2:10 PM EST Office Visit [facility] 2 [facility] [address] [place] [address] Allyson Estrada NP [address] [place] [address] [address] [place] [address] Coronary artery disease involving [place] coronary artery of [place] heart without angina pectoris (Primary Dx); Permanent atrial fibrillation (CMS/HCC V24, CMS/HCC V28); Peripheral edema; Coronary artery disease, unspecified vessel or lesion type, unspecified whether angina present, unspecified whether [place] or transplanted heart Social History Tobacco Use Types Packs/Day Years [...] on file documented as of this encounter Last Filed Vital Signs Vital Sign Reading Time Taken Comments Blood Pressure 90/60 06/24/2025 2:15 PM EST Pulse 73 06/24/2025 2:15 PM EST Temperature - - Respiratory Rate - - Oxygen Saturation 98% 06/24/2025 2:15 PM EST Inhaled Oxygen Concentration - - Weight 124 kg (274 lb) 06/24/2025 2:15 PM EST Height 170.2 cm (5' 7 ) 06/24/2025 2:15 PM EST Body Mass Index 42.91 06/24/2025 2:15 PM EST documented in this encounter Ordered Prescriptions Prescription Sig Dispense Quantity Refills Last Filled Start Date End Date nitroglycerin (NITROSTAT) 0.4 mg SL tabletIndications: Coronary artery disease, unspecified vessel or lesion type, unspecified whether angina present, unspecified whether [place] or transplanted heart Place 1 tablet (0.4 mg total) under the tongue every 5 (five) minutes if needed for chest pain. 25 tablet 3 06/24/2025 documented in this encounter Progress Notes * Allyson Estrada NP - 06/24/2025 2:10 PM ESTAssociated Problem(s): Coronary artery disease involving [place] coronary artery of [place] heart without angina pectoris Patient has history of coronary artery disease status post bare-metal stenting to the LAD in 2010.She reports 1 day where she had 2 episodes of chest discomfort relieved with sublingual nitroglycerin. No recurrent issues with chest discomfort. She denies any exertional chest pain or dyspnea. She continues on cardioprotective medical therapy with aspirin, beta-edgardo and statin. Would recommendcontinuation of sublingual nitroglycerin as needed for chest discomfort. If she starts to have recurrent issues with chest discomfort we may need to consider a PET nuclear stress test. For now she will continue to monitor her symptoms. I have reviewed with the patient the importance of a heart healthy lifestyle which includes eating a low-fat low-salt diet, getting regular exercise, maintaining ahealthy weight, not smoking, and following up with routine medical care. Refill of her sublingual nitroglycerin sent to the [facility] pharmacy. * Allyson Estrada NP - 06/24/2025 2:10 PM ESTAssociated Problem(s): Permanent atrial fibrillation (CMS/HCC V24, CMS/HCC V28) Patient has a history of atrial fibrillation and remains on warfarin for anticoagulation and metoprolol for rate control. No issues with heart rate at this time. * Allyson Estrada NP - 06/24/2025 2:10 PM ESTAssociated Problem(s): Peripheral edema Patient has history of peripheral edema however she does not present with any clinical symptoms of heart failure at this time. Her leg edema seems to be minimal at this point. * Allyson Estrada NP - 06/24/2025 2:10 PM EST Images from the original note were not included. [facility] PRIMARY PRINTING GRAY CLOTH TENDER: Quang Barrios MD PCP: Yo Chambers MD HPI: Jagjit Salter is a 75 y.o. old female with d history of coronary disease with a stented LAD bare-metal stent 2010. Previous stents in the RCA. 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 Chronic lower extremity venous insufficiency followed by vascular medicine she has support socks. Patient was seen by vascular surgery but it was a telehealth visit. Patient also has carotid arterystenosis. Large fibroids that are calcified hyperlipidemia degenerative disc disease. Her A-fib is paroxysmal Patient presents today for routine cardiac follow-up. Reports that she had 2 episodes of chest painon the same day at the beginning of May. She was given sublingual nitroglycerin which alleviated her discomfort. She reports that she has not had any further episodes since then. She participatesin range of motion exercises at the facility and has not had any chest discomfort with activity. She takes her medications as prescribed and denies any cardiac concerns at this time. She denies any significant dyspnea, palpitations, orthopnea, PND, syncope, near syncope or increased peripheral edema. ACTIVE MEDICATIONS: Current Outpatient Medications Medication Instructions albuterol 2.5 mg /3 mL (0.083 %) nebulizer solution aspirin 81 mg EC tablet 1 tablet, Daily atorvastatin (LIPITOR) 80 mg tablet 1 tablet, Daily bisacodyL (DULCOLAX) 5 mg EC tablet 1 tablet, Daily PRN calcium carbonate (TUMS) 500 mg (200 mg elemental calcium) chewable tablet 1 tablet, Every 4 hours cholecalciferol (VITAMIN D3) 1,250 mcg (50,000 unit) tablet Take by mouth. gabapentin (NEURONTIN) 400 mg capsule 1 capsule, Every 8 hours PRN guaiFENesin (ROBITUSSIN) 200 mg, Every 4 hours PRN guaifenesin/dextromethorphan (DEXTROMETHORPHAN-GUAIFENESIN PO) 20 mL, Every 4 hours PRN lactulose (CHRONULAC) 20 g, Daily PRN MAGNESIUM CITRATE ORAL 150 mL metoprolol tartrate (LOPRESSOR) 25 mg tablet 0.5 tablets, 2 times daily nitroglycerin (NITROSTAT) 0.4 mg, sublingual, Every 5 min PRN oseltamivir (TAMIFLU) 75 mg capsule polyethylene glycol (MIRALAX) 17 g, Daily sodium phosphates (Fleet Enema Extra) 19-7 gram/197 mL enema Insert into the rectum. vit C,Z-Ns-nwyvf-lutein-zeaxan ([facility] AREDS-2) 250-90-40-1 mg capsule 1 capsule, 2 times daily warfarin (COUMADIN) 3 mg tablet 1 tablet, Daily warfarin (COUMADIN) 2.5 mg warfarin (COUMADIN) 1 mg, Daily with dinner PAST MEDICAL HISTORY: Patient Active Problem List Diagnosis Date Noted Permanent atrial fibrillation ([facility] V24, [facility] V28) 12/21/2024 Coronary artery disease involving [place] coronary artery of [place] heart without angina pectoris 12/21/2024 Peripheral edema 12/21/2024 ALLERGIES: No Known Allergies SOCIAL HISTORY: Social History Tobacco Use Smoking status: Never Smokeless tobacco: Never Substance Use Topics Alcohol use: No PHYSICAL EXAM: Vitals: 06/24/25 1415 Weight: 124 kg (274 lb) Height: 1.702 m (67 ) Physical Exam Constitutional: General: She is not in acute distress. Appearance: She is not diaphoretic. HENT: Head: Normocephalic. Eyes: Pupils: Pupils are equal, round, and reactive to light. Neck: Vascular: No carotid bruit. Cardiovascular: Rate and Rhythm: Normal rate and regular rhythm. Pulses: Normal pulses. Heart sounds: Normal heart sounds. No murmur heard. No friction rub. Pulmonary: Effort: Pulmonary effort is normal. No respiratory distress. Breath sounds: Normal breath sounds. No stridor. No wheezing, rhonchi or rales. Chest: Chest wall: No tenderness. Abdominal: General: Bowel sounds are normal. There is no distension. Palpations: Abdomen is soft. Tenderness: There is no abdominal tenderness. Musculoskeletal: General: No deformity. Cervical back: Normal range of motion. Right lower leg: No edema. Left lower leg: No edema. Skin: General: Skin is warm and dry. Neurological: Mental Status: She is alert and oriented to person, place, and time. Psychiatric: Mood and Affect: Mood normal. EKG: Encounter Date: 12/21/24 ECG 12 lead Result Value Ventricular Rate ECG 62 Atrial Rate 62 P-R Interval 180 QRS Duration 70 Q-T Interval 432 QTc 438 P Wave Custar 43 R Custar 56 T Custar 5 ECG Interpretation Sinus rhythm with marked sinus arrhythmia with occasional Premature ventricular complexes Low voltage QRS Possible Inferior infarct , age undetermined Abnormal ECG When compared with ECG of 12-JAN-2019 19:41, Premature ventricular complexes are now Present Nonspecific T wave abnormality now evident in Anterior leads Confirmed by Davina BARRIOS JAMES ([id number]) on 12/21/2024 6:31:18 PM *Note: Due to a large number of results and/or encounters for the requested time period, some results have not been displayed. A complete set of results can be found in Results Review. TESTING: Lab Results Component Value Date CHOL 180 06/10/2025 CHOL 160 03/11/2025 CHOL 183 02/11/2025 Lab Results Component Value Date HDL 42 06/10/2025 HDL 43 03/11/2025 HDL 42 02/11/2025 Lab Results Component Value Date LDLCALC 109 (H) 06/10/2025 LDLCALC 94 03/11/2025 LDLCALC 116 (H) 02/11/2025 Lab Results Component Value Date TRIG 146 06/10/2025 TRIG 116 03/11/2025 TRIG 126 02/11/2025 Lab Results Component Value Date CHOLHDL 4.3 06/10/2025 CHOLHDL 3.7 03/11/2025 CHOLHDL 4.4 02/11/2025 Lab Results Component Value Date NA 143 06/10/2025 K 4.1 06/10/2025 CL 111 (H) 06/10/2025 CO2 28 06/10/2025 GLUCOSE 81 06/10/2025 BUN 15 06/10/2025 CREATININE 0.91 06/10/2025 CALCIUM 8.5 06/10/2025 PROT 5.9 (L) 06/10/2025 ALBUMIN 2.8 (L) 06/10/2025 BILITOT 0.3 06/10/2025 AST 24 06/10/2025 ALT 35 06/10/2025 ALKPHOS 102 06/10/2025 EGFR 66 06/10/2025 ASSESSMENT/PLAN: As per AHA guidelines and previously established plan of care by Dr. Quang Barrios MD, we discussed the following today: Assessment & Plan Coronary artery disease involving [place] coronary artery of [place] heart without angina pectoris Patient has history of coronary artery disease status post bare-metal stenting to the LAD in 2010. She reports 1 day where she had 2 episodes of chest discomfort relieved with sublingual nitroglycerin. No recurrent issues with chest discomfort. She denies any exertional chest pain or dyspnea. She continues on cardioprotective medical therapy with aspirin, beta-edgardo and statin. Would recommend continuation of sublingual nitroglycerin as needed for chest discomfort. If she starts to have recurrent issues with chest discomfort we may need to consider a PET nuclear stress test. For now she will continue to monitor her symptoms. I have reviewed with the patient the importance of a heart healthy lifestyle which includes eating a low-fat low-salt diet, getting regular exercise, maintaining a healthy weight, not smoking, and following up with routine medical care. Refill of her sublingual nitroglycerin sent to the [facility] pharmacy. Permanent atrial fibrillation (CMS/HCC V24, CMS/HCC V28) Patient has a history of atrial fibrillation and remains on warfarin for anticoagulation and metoprolol for rate control. No issues with heart rate at this time. Peripheral edema Patient has history of peripheral edema however she does not present with any clinical symptoms of heart failure at this time. Her leg edema seems to be minimal at this point. Thank you for allowing us to participate in the care of this patient. The patient will follow up in6 months, sooner PRN. Allyson Estrada, MSN, [employer], CCK, AACC ER [facility] I have applied the code G2211 to this patient???s visit. This visit represents ongoing, longitudinal care for this patient???s chronic cardiovascular conditions. I am a provider managing multiple complex cardiovascular problems leading to the extensive work up, ongoing monitoring, and management associated with the medical care of this patient.? The complexity of this visit is inherent to the continuous relationship and care coordination required for this patient???s ongoing cardiac and relatedhealth issues. Dictation Disclaimer Statement This document was developed in part, totally and/or in the combination using the [employer] voice recognition software. Limitations of the electrician assistant due to software-hardware parity limitation may lead to unintended omission, grammatical or nonsensical errors, possibly missed and/or not readily detected during proof reading by the author of this document. If you have any questions or concerns, regarding the content of this note, please contact me directly. documented in this encounter Plan of Treatment Not on file documented as of this encounter Visit Diagnoses Diagnosis Coronary artery disease, unspecified vessel or lesion type, unspecified whether angina present, unspecified whether [place] or transplanted heart Permanent atrial fibrillation ([facility] V24, [facility] V28) Atrial fibrillation Peripheral edema Edema documented in this encounter Discontinued Medications Medication Sig Discontinue Reason Start Date End Da te oseltamivir (TAMIFLU) 75 mg capsule Therapy completed 10/08/2024 06/24/2025 nitroglycerin (NITROSTAT) 0.4 mg SL tabletIndications:Coronar y artery disease, unspecified vessel or lesion type, unspecified whether angina present, unspecified whether [place] or transplanted heart Place 1 tablet (0.4 mg total) under the tongue every 5 (five) minutes if needed for chest pain. Reorder 12/21/2024 06/24/2025 documented as of this encounter Historical Medications * This list may reflect changes made after this encounter. vit C,W-Pm-fuzsf-lute in-zeaxan ([facility] AREDS-2) 250-90-40-1 mg capsule Take 1 capsule by mouth 2 (two) times a day. added in this encounter Care Teams Medical Transport Specialist Relationship Specialty Start Date End Date Yo Chambers MD [address] [place] [address] PCP - General 05/19/21 documented as of this encounter
--- OUTSIDE RECORDS SUMMARY | 2025-06-24 17:01 | XMS_ITS | Encounter Summary ---
Author Organization [facility] Address [address] [place] [address] Care Team Providers Care Compatibility Test Engineer Name Role Phone Yo Chambers MD Primary Care Provider +1- [phone] Encounter Details Date Type Department Care Team (Late st Contact Info) Description 03/16/2025 Lab Requisition [facility] - Main Lab [address] [facility] [place] [address] Yo Chambers MD [address] [place] [address] Unspecified atrial fibrillation (CMS/HCC V24, CMS/HCC V28); Vitamin D deficiency, unspecified Social History Tobacco Use Types Packs/Day Years [...] Procedure Name Priority Date/Time Associated Diagnosis Comments VITAMIN D 25 HYDROXY Routine 03/18/2025 6:17 AM EDT Unspecified atrial fibrillation (CMS/HCC V24, CMS/HCC V28) Vitamin D deficiency, unspecified PROTHROMBIN TIME WITH INR Routine 03/18/2025 6:17 AM EDT Unspecified atrial fibrillation (CMS/HCC V24, CMS/HCC V28) Vitamin D deficiency, unspecified documented in this encounter Results * Vitamin D 25 hydroxy (03/18/2025 6:17 AM EDT) Pathologist [facility] Vit D, 25-Hydroxy 38.6 30.0 - 80.0 ng/mL LAB CHEMISTRY METHOD 03/18/2025 3:[address] [facility] Blood Venous blood specimen / Unknown Venipuncture / Unknown 03/18/2025 6:17 AM EDT 03/18/2025 11:58 AM EDT Yo Chambers MD LAB BLOOD ORDERABLES Final Result Performing Organization Address City/[facility]/ZIP Co de Phone Number [facility] [address] [place] [address], [place] [phone] * (ABNORMAL) Prothrombin time with INR (03/18/2025 6:17 AM EDT) [facility] Protime 17.2(H) 10.6 - 13.9 sec LAB COAGULATION METHOD 03/18/2025 12:[address] [facility] INR 1.4 LAB COAGULATION METHOD 03/18/2025 12:[address] [facility] Blood Venous blood specimen / Unknown Venipuncture / Unknown 03/18/2025 6:17 AM EDT 03/18/2025 11:58 AM EDT Yo Chambers MD LAB BLOOD ORDERABLES Final Result [facility] [address] [place] [address], [place] [phone] documented in this encounter Visit Diagnoses Diagnosis Unspecified atrial fibrillation (CMS/HCC V24, CMS/HCC V28) Vitamin D deficiency, unspecified documented in this encounter Care Teams Compatibility Test Engineer Relationship Specialty Start Date End Date Yo Chambers MD [address] [place] [id number] PCP - General 05/19/21 documented as of this encounter
--- OUTSIDE RECORDS SUMMARY | 2025-06-24 17:01 | XMS_ITS | Encounter Summary ---
Author Organization [facility] Address [address] [place] [address] Care Team Providers Care Corporate Receptionist Name Role Phone Yo Chambers MD Primary Care Provider +1- [phone] Encounter Details Date Type Department Care Team (Late st Contact Info) Description 11/03/[address] [facility] - Main Lab [address] [facility] [place] [address] Yo Chambers MD [address] [place] [address] Unspecified atrial fibrillation (CMS/HCC V24, CMS/HCC V28) [...] V28) documented in this encounter Care Teams Corporate Receptionist Relationship Specialty Start Date End Date Yo Chambers MD [address] [place] [address] PCP - General 05/19/21 documented as of this encounter
--- OUTSIDE RECORDS SUMMARY | 2025-06-24 17:01 | XMS_ITS | Encounter Summary ---
Author Organization [facility] Address [address] [place] [address] Care Team Providers Care Ui Developer Designer Name Role Phone Yo Chambers MD Primary Care Provider +1- [phone] Encounter Details Date Type Department Care Team (Late st Contact Info) Description 01/20/2025 Lab Requisition [facility] - Main Lab [address] [place] [address] Yo Chambers MD [address] [place] [address] Unspecified atrial fibrillation (CMS/HCC V24, CMS/HCC V28) [...] Diagnosis Comments PROTHROMBIN TIME WITH INR Routine 01/21/2025 7:00 AM EDT Unspecified atrial fibrillation (CMS/HCC V24, CMS/HCC V28) documented in this encounter Results * (ABNORMAL) Prothrombin time with INR (01/21/2025 7:00 AM EDT) Protime 23.0(H) 10.6 - 13.9 sec LAB COAGULATION METHOD 01/21/2025 11:18 AM EDT [facility] INR 1.9 LAB COAGULATION METHOD 01/21/2025 11:18 AM EDT [facility] Blood Venous blood specimen / Unknown Venipuncture / Unknown 01/21/2025 7:00 AM EDT 01/21/2025 11:06 AM EDT us Yo Chambers MD LAB BLOOD ORDERABLES Final Result [facility] [address] [place] [address], documented in this encounter Visit Diagnoses Diagnosis Unspecified atrial fibrillation (CMS/HCC V24, CMS/HCC V28) documented in this encounter Care Teams Ui Developer Designer Relationship Specialty Start Date End Date Yo Chambers MD [address] [place] [id number] PCP - General 05/19/21 documented as of this encounter
--- OUTSIDE RECORDS SUMMARY | 2025-06-24 17:01 | XMS_ITS | Encounter Summary ---
Author Organization [facility] Address [address] [place] [address] Care Team Providers Care Design Painter Name Role Phone Yo Chambers MD Primary Care Provider +1- [phone] Encounter Details Date Type Department Care Team (Late st Contact Info) Description 11/26/2024 Lab Requisition [facility] - Main Lab [address] [place] [address] Yo Chambers MD [address] [place] [address] Unspecified atrial fibrillation (CMS/HCC V24, CMS/HCC V28) [...] LAB COAGULATION METHOD 11/26/2024 2:19 PM EDT [facility] INR 1.7 LAB COAGULATION METHOD 11/26/2024 2:19 PM EDT [facility] Blood Venous blood specimen / Unknown Venipuncture / Unknown 11/26/2024 1:30 PM EDT 11/26/2024 2:00 PM EDT Yo Chambers MD LAB BLOOD ORDERABLES Final Result [facility] [address] [place] [address], documented in this encounter Visit Diagnoses Diagnosis Unspecified atrial fibrillation (CMS/HCC V24, CMS/HCC V28) documented in this encounter Care Teams Design Painter Relationship Specialty Start Date End Date Yo Chambers MD [address] [place] [address] PCP - General 05/19/21 documented as of this encounter
--- OUTSIDE RECORDS SUMMARY | 2025-06-24 17:01 | XMS_ITS | Encounter Summary ---
Author Organization [facility] Address [address] [place] [address] Care Team Providers Care Application Administrator Name Role Phone Yo Chambers MD Primary Care Provider +1- [phone] Encounter Details Date Type Department Care Team (Late st Contact Info) Description 02/21/2025 Lab Requisition [facility] - Main Lab [address] [place] [address] Yo Chambers MD [address] [place] [address] Unspecified atrial fibrillation (CMS/HCC V24, CMS/HCC V28) [...] Diagnosis Comments PROTHROMBIN TIME WITH INR Routine 02/25/2025 7:43 AM EDT Unspecified atrial fibrillation (CMS/HCC V24, CMS/HCC V28) documented in this encounter Results * (ABNORMAL) Prothrombin time with INR (02/25/2025 7:43 AM EDT) Protime 27.5(H) 10.6 - 13.9 sec LAB COAGULATION METHOD 02/25/2025 11:41 AM EDT [facility] INR 2.2 LAB COAGULATION METHOD 02/25/2025 11:41 AM EDT [facility] Blood Venous blood specimen / Unknown Venipuncture / Unknown 02/25/2025 7:43 AM EDT 02/25/2025 10:37 AM EDT us Yo Chambers MD LAB BLOOD ORDERABLES Final Result [facility] [address] [place] [address], documented in this encounter Visit Diagnoses Diagnosis Unspecified atrial fibrillation (CMS/HCC V24, CMS/HCC V28) documented in this encounter Care Teams Application Administrator Relationship Specialty Start Date End Date Yo Chambers MD [address] [place] [id number] PCP - General 05/19/21 documented as of this encounter
--- OUTSIDE RECORDS SUMMARY | 2025-06-24 17:01 | XMS_ITS | Clinical Summary ---
Author Organization [facility] Address [address] [place] [address] Care Team Providers Care Piccoloist Name Role Phone Unavailable Primary Care Provider [...] Bone Density Screening 2016 Falls Prevention 2016 Alcohol and Drug Screen 08/22/2024 Depression Annual Screen 08/22/2024 [id number] ( season) 2025 Imm-Influenza (#1) 2025 Hypertension Screening (#1) 08/29/2025 Insurance [place]
--- OUTSIDE RECORDS SUMMARY | 2025-06-24 17:01 | XMS_ITS | Encounter Summary ---
Author Organization [facility] Address [address] [place] [address] Care Team Providers Care Wet Milling Wheel Operator Name Role Phone Yo Chambers MD Primary Care Provider +1- [phone] Encounter Details Date Type Department Care Team (Late st Contact Info) Description 12/22/[address] [facility] - Main Lab [address] [place] [address] Yo Chambers MD [address] [place] [address] Unspecified atrial fibrillation (CMS/HCC V24, CMS/HCC V28) [...] LAB COAGULATION METHOD 12/24/2024 8:21 AM EDT [facility] INR 1.6 LAB COAGULATION METHOD 12/24/2024 8:21 AM EDT [facility] Blood Venous blood specimen / Unknown Venipuncture / Unknown 12/24/2024 5:40 AM EDT 12/24/2024 7:47 AM EDT us Yo Chambers MD LAB BLOOD ORDERABLES Final Result [facility] [address] [place] [address], documented in this encounter Visit Diagnoses Diagnosis Unspecified atrial fibrillation (CMS/HCC V24, CMS/HCC V28) documented in this encounter Care Teams Wet Milling Wheel Operator Relationship Specialty Start Date End Date Yo Chambers MD [address] [place] [address] PCP - General 05/19/21 documented as of this encounter
--- OUTSIDE RECORDS SUMMARY | 2025-06-24 17:01 | XMS_ITS | Encounter Summary ---
Author Organization [facility] Address [address] [place] [address] Care Team Providers Care Substitute Crossing Guard Name Role Phone Yo Chambers MD Primary Care Provider +1- [phone] Encounter Details Date Type Department Care Team (Late st Contact Info) Description 11/03/2024 Lab Requisition [facility] - Main Lab [address] [place] [address] Yo Chambers MD [address] [place] [address] Unspecified atrial fibrillation (CMS/HCC V24, CMS/HCC V28) [...] LAB COAGULATION METHOD 11/05/2024 12:15 PM EDT [facility] LAB INR 2.6 LAB COAGULATION METHOD 11/05/2024 12:15 PM EDT [facility] LAB Blood Venous blood specimen / Unknown Venipuncture / Unknown 11/05/2024 6:52 AM EDT 11/05/2024 11:49 AM EDT Yo Chambers MD LAB BLOOD ORDERABLES Final Result [facility] LAB [address] [place] [address], documented in this encounter Visit Diagnoses Diagnosis Unspecified atrial fibrillation (CMS/HCC V24, CMS/HCC V28) documented in this encounter Care Teams Substitute Crossing Guard Relationship Specialty Start Date End Date Yo Chambers MD [address] [place] [address] PCP - General 05/19/21 documented as of this encounter
--- OUTSIDE RECORDS SUMMARY | 2025-06-24 17:01 | XMS_ITS | Encounter Summary ---
Author Organization [facility] Address [address] [place] [address] Care Team Providers Care Supervisor Body Assembly Name Role Phone Yo Chambers MD Primary Care Provider +1- [phone] Encounter Details Date Type Department Care Team (Late st Contact Info) Description 11/18/2024 Lab Requisition [facility] - Main Lab [address] [place] [address] Yo Chambers MD [address] [place] [address] Unspecified atrial fibrillation (CMS/HCC V24, CMS/HCC V28) [...] LAB COAGULATION METHOD 11/19/2024 10:58 AM EDT [facility] LAB INR 1.5 LAB COAGULATION METHOD 11/19/2024 10:58 AM EDT [facility] LAB Blood Venous blood specimen / Unknown Venipuncture / Unknown 11/19/2024 5:29 AM EDT 11/19/2024 10:25 AM EDT Yo Chambers MD LAB BLOOD ORDERABLES Final Result [facility] LAB [address] [place] [address], documented in this encounter Visit Diagnoses Diagnosis Unspecified atrial fibrillation (CMS/HCC V24, CMS/HCC V28) documented in this encounter Care Teams Supervisor Body Assembly Relationship Specialty Start Date End Date Yo Chambers MD [address] [place] [address] PCP - General 05/19/21 documented as of this encounter
--- OUTSIDE RECORDS SUMMARY | 2025-06-24 17:01 | XMS_ITS | Encounter Summary ---
Author Organization [facility] Address [address] [place] [address] Care Team Providers Care Restaurant Cashier Name Role Phone Yo Chambers MD Primary Care Provider +1- [phone] Encounter Details Date Type Department Care Team (Late st Contact Info) Description 11/10/2024 Lab Requisition [facility] - Main Lab [address] [place] [address] Yo Chambers MD [address] [place] [address] Unspecified atrial fibrillation (CMS/HCC V24, CMS/HCC V28) [...] LAB COAGULATION METHOD 11/12/2024 11:12 AM EDT [facility] LAB INR 2.0 LAB COAGULATION METHOD 11/12/2024 11:12 AM EDT [facility] LAB Blood Venous blood specimen / Unknown Venipuncture / Unknown 11/12/2024 6:00 AM EDT 11/12/2024 10:43 AM EDT Yo Chambers MD LAB BLOOD ORDERABLES Final Result [facility] LAB [address] [place] [address], documented in this encounter Visit Diagnoses Diagnosis Unspecified atrial fibrillation (CMS/HCC V24, CMS/HCC V28) documented in this encounter Care Teams Restaurant Cashier Relationship Specialty Start Date End Date Yo Chambers MD [address] [place] [address] PCP - General 05/19/21 documented as of this encounter
--- OUTSIDE RECORDS SUMMARY | 2025-06-24 17:01 | XMS_ITS | Encounter Summary ---
Author Organization [facility] Address [address] [place] [address] Care Team Providers Care Parquet Floor Layer Name Role Phone Yo Chambers MD Primary Care Provider +1- [phone] Encounter Details Date Type Department Care Team (Late st Contact Info) Description 12/14/2024 Lab Requisition [facility] - Main Lab [address] [place] [address] Yo Chambers MD [address] [place] [address] Unspecified atrial fibrillation (CMS/HCC V24, CMS/HCC V28) [...] Diagnosis Comments PROTHROMBIN TIME WITH INR Routine 12/17/2024 5:38 AM EDT Unspecified atrial fibrillation (CMS/HCC V24, CMS/HCC V28) documented in this encounter Results * (ABNORMAL) Prothrombin time with INR (12/17/2024 5:38 AM EDT) Protime 22.9(H) 10.6 - 13.9 sec LAB COAGULATION METHOD 12/17/2024 7:32 AM EDT [facility] INR 1.8 LAB COAGULATION METHOD 12/17/2024 7:32 AM EDT [facility] LAB Blood Venous blood specimen / Unknown Venipuncture / Unknown 12/17/2024 5:38 AM EDT 12/17/2024 7:07 AM EDT us Yo Chambers MD LAB BLOOD ORDERABLES Final Result [facility] LAB [address] [place] [address], documented in this encounter Visit Diagnoses Diagnosis Unspecified atrial fibrillation (CMS/HCC V24, CMS/HCC V28) documented in this encounter Care Teams Parquet Floor Layer Relationship Specialty Start Date End Date Yo Chambers MD [address] [place] [address] PCP - General 05/19/21 documented as of this encounter
--- OUTSIDE RECORDS SUMMARY | 2025-06-24 17:01 | XMS_ITS | Encounter Summary ---
Author Organization [facility] Address [address] [place] [address] Care Team Providers Care Plasma Processing Centrifuge Operator Name Role Phone Yo Chambers MD Primary Care Provider +1- [phone] Encounter Details Date Type Department Care Team (Late st Contact Info) Description 04/19/2025 Lab Requisition [facility] - Main Lab [address] [place] [address] Yo Chambers MD [address] [place] [address] Unspecified atrial fibrillation (CMS/HCC V24, CMS/HCC V28) [...] Diagnosis Comments PROTHROMBIN TIME WITH INR Routine 04/23/2025 7:51 AM EDT Unspecified atrial fibrillation (CMS/HCC V24, CMS/HCC V28) documented in this encounter Results * (ABNORMAL) Prothrombin time with INR (04/23/2025 7:51 AM EDT) Protime 28.5(H) 10.6 - 13.9 sec LAB COAGULATION METHOD 04/23/2025 12:47 PM EDT [facility] LAB INR 2.3 LAB COAGULATION METHOD 04/23/2025 12:47 PM EDT [facility] LAB Blood Venous blood specimen / Unknown Venipuncture / Unknown 04/23/2025 7:51 AM EDT 04/23/2025 11:37 AM EDT us Yo Chambers MD LAB BLOOD ORDERABLES Final Result [facility] LAB [address] [place] [address], documented in this encounter Visit Diagnoses Diagnosis Unspecified atrial fibrillation (CMS/HCC V24, CMS/HCC V28) documented in this encounter Care Teams Plasma Processing Centrifuge Operator Relationship Specialty Start Date End Date Yo Chambers MD [address] [place] [address] PCP - General 05/19/21 documented as of this encounter
--- OUTSIDE RECORDS SUMMARY | 2025-06-24 17:01 | XMS_ITS | Encounter Summary ---
Author Organization [facility] Address [address] [place] [address] Care Team Providers Care Acid Concentrator Name Role Phone Yo Chambers MD Primary Care Provider +1- [phone] Encounter Details Date Type Department Care Team (Late st Contact Info) Description 03/09/2025 Lab Requisition [facility] - Main Lab [address] [facility] [place] [address] Yo Chambesr MD [address] [place] [address] Chronic kidney disease, unspecified; Unspecified atrial fibrillation (CMS/HCC V24, CMS/HCC V28); Hyperlipidemia, unspecified Social History Tobacco Use Types Packs/Day [...] Procedure Name Priority Date/Time Associated Diagnosis Comments LIPID PANEL WITH REFLEX TO DIRECT LDL Routine 03/11/2025 5:45 AM EDT Chronic kidney disease, unspecified Unspecified atrial fibrillation (CMS/HCC V24, CMS/HCC V28) Hyperlipidemia, unspecified PROTHROMBIN TIME WITH INR Routine 03/11/2025 5:45 AM EDT Chronic kidney disease, unspecified Unspecified atrial fibrillation (CMS/HCC V24, CMS/HCC V28) Hyperlipidemia, unspecified COMPLETE BLOOD COUNT Routine 03/11/2025 5:45 AM EDT Chronic kidney disease, unspecified Unspecified atrial fibrillation (CMS/HCC V24, CMS/HCC V28) Hyperlipidemia, unspecified COMPREHENSIVE METABOLIC PANEL Routine 03/11/2025 5:45 AM EDT Chronic kidney disease, unspecified Unspecified atrial fibrillation (CMS/HCC V24, CMS/HCC V28) Hyperlipidemia, unspecified documented in this encounter Results * (ABNORMAL) Prothrombin time with INR (03/11/2025 5:45 AM EDT) [facility] Protime 20.1(H) 10.6 - 13.9 sec LAB COAGULATION METHOD 03/11/2025 11:47 AM EDT [facility] LAB INR 1.6 LAB COAGULATION METHOD 03/11/2025 11:47 AM EDT [facility] LAB Blood Venous blood specimen / Unknown Venipuncture / Unknown 03/11/2025 5:45 AM EDT 03/11/2025 11:37 AM EDT Yo Chambers MD LAB BLOOD ORDERABLES Final Result [facility] [address] [place] [address], * (ABNORMAL) Complete blood count (03/11/2025 5:45 AM EDT) [facility] WBC 4.9 4.8 - 10.8 K/mcL LAB HEMETOLOGY METHOD 03/11/2025 11:52 AM EDT [facility] LAB RBC 3.80 3.80 - 4.80 M/mcL LAB HEMETOLOGY METHOD 03/11/2025 11:52 AM EDT [facility] LAB Hemoglobin 12.3 11.5 - 16.0 g/dL LAB HEMETOLOGY METHOD 03/11/2025 11:52 AM EDT [facility] LAB Hematocrit 38.2 35.0 - 47.0 % LAB HEMETOLOGY METHOD 03/11/2025 11:52 AM EDT [facility] LAB MCV 99.5(H) 79.0 - 98.0 FL LAB HEMETOLOGY METHOD 03/11/2025 11:52 AM EDT [facility] LAB MCH 32.0 27.0 - 32.0 pcg LAB HEMETOLOGY METHOD 03/11/2025 11:52 AM EDT [facility] LAB MCHC 32.2 32.0 - 37.0 g/dL LAB HEMETOLOGY METHOD 03/11/2025 11:52 AM EDT [facility] RDW 14.2 11.0 - 15.0 % LAB HEMETOLOGY METHOD 03/11/2025 11:52 AM EDT [facility] Platelets 218 130 - 400 K/mcL LAB HEMETOLOGY METHOD 03/11/2025 11:52 AM EDT [facility] MPV 10.7 7.0 - 11.0 FL LAB HEMETOLOGY METHOD 03/11/2025 11:52 AM EDT [facility] NRBC 0.0 <1.0 % LAB HEM[facility]OLOGY [facility] Absolute 0.00 <0.10 K/mcL LAB HEMETOLOGY METHOD 03/11/2025 11:52 AM EDT [facility] LAB Blood Venous blood specimen / Unknown Venipuncture / Unknown 03/11/2025 5:45 AM EDT 03/11/2025 11:37 AM EDT us Yo Chambers MD LAB BLOOD ORDERABLES Final Result [facility] [address] [place] [address], * Lipid panel with reflex to direct LDL (03/11/2025 5:45 AM EDT) Cholesterol 160 0 - 200 mg/dL LAB CHEMISTRY METHOD 03/11/2025 1:48 PM EDT [facility] Triglycerides 116 0 - 150 mg/dL LAB CHEMISTRY METHOD 03/11/2025 1:48 PM EDT [facility] HDL 43 >=40 mg/dL LAB CHEMISTRY METHOD 03/11/2025 1:48 PM EDT [facility] LDL Calculated 94 0 - 100 mg/dL LAB CHEMISTRY METHOD 03/11/2025 1:48 PM EDT [facility] VLDL Cholesterol Ancelmo 23.2 mg/dL LAB CHEMISTRY METHOD 03/11/2025 1:48 PM EDT [facility] Non HDL Chol. (LDL+VLDL) 117 <145 mg/dL LAB CHEMISTRY METHOD 03/11/2025 1:48 PM EDT [facility] Chol/HDL Ratio 3.7 0.0 - 4.4 LAB CHEMISTRY METHOD 03/11/2025 1:48 PM EDT [facility] LAB Blood Venous blood specimen / Unknown Venipuncture / Unknown 03/11/2025 5:45 AM EDT 03/11/2025 11:37 AM EDT us Yo Chambers MD LAB BLOOD ORDERABLES Final Result [facility] [address] [place] [address], * (ABNORMAL) Comprehensive metabolic panel (03/11/2025 5:45 AM EDT) Sodium 142 133 - 145 mmol/L LAB CHEMISTRY METHOD 03/11/2025 1:48 PM EDT [facility] Potassium 4.8 3.5 - 5.5 mmol/L LAB CHEMISTRY METHOD 03/11/2025 1:48 PM EDT [facility] Chloride 108 96 - 110 mmol/L LAB CHEMISTRY METHOD 03/11/2025 1:[address] [facility] CO2 26 21 - 32 mmol/L LAB CHEMISTRY METHOD 03/11/2025 1:[address] [facility] Anion Gap 8 3 - 11 LAB CHEMISTRY METHOD 03/11/2025 1:[address] [facility] Glucose 72 70 - 100 mg/dL LAB CHEMISTRY METHOD 03/11/2025 1:[address] [facility] BUN 16 5 - 25 mg/dL LAB CHEMISTRY METHOD 03/11/2025 1:[address] [facility] Creatinine 0.98 0.50 - 1.10 mg/dL LAB CHEMISTRY METHOD 03/11/2025 1:[address] [facility] eGFR 61 >=60 mL/min/1. 73m2 LAB CHEMISTRY METHOD 03/11/2025 1:[address] [facility] LAB Comment:Calculation based on the Chronic Kidney Disease Epidemiology Collaboration (CKD-EPI) equation refit without adjustment for race. BUN/Creatinine Ratio 16.3 LAB CHEMISTRY METHOD 03/11/2025 1:[address] [facility] Calcium 8.8 8.5 - 10.5 mg/dL LAB CHEMISTRY METHOD 03/11/2025 1:[address] [facility] AST (SGOT) 29 10 - 42 unit/L LAB CHEMISTRY METHOD 03/11/2025 1:[address] [facility] ALT (SGPT) 35 10 - 60 unit/L LAB CHEMISTRY METHOD 03/11/2025 1:[address] [facility] Alkaline Phosphatase 93 42 - 121 unit/L LAB CHEMISTRY METHOD 03/11/2025 1:[address] [facility] Total Protein 6.1 6.0 - 8.0 g/dL LAB CHEMISTRY METHOD 03/11/2025 1:[address] [facility] Albumin 3.0(L) 3.2 - 5.0 g/dL LAB CHEMISTRY METHOD 03/11/2025 1:48 PM EDT [facility] Total Bilirubin 0.3 0.0 - 1.4 mg/dL LAB CHEMISTRY METHOD 03/11/2025 1:48 PM EDT [facility] Blood Venous blood specimen / Unknown Venipuncture / Unknown 03/11/2025 5:45 AM EDT 03/11/2025 11:37 AM EDT us Yo Chambers MD LAB BLOOD ORDERABLES Final Result [facility] [address] [place] [address], documented in this encounter Visit Diagnoses Diagnosis Chronic kidney disease, unspecified Unspecified atrial fibrillation (CMS/HCC V24, CMS/HCC V28) Hyperlipidemia, unspecified documented in this encounter Care Teams Acid Concentrator Relationship Specialty Start Date End Date Yo Chambers MD [address] [place] [address] PCP - General 05/19/21 documented as of this encounter
--- OUTSIDE RECORDS SUMMARY | 2025-06-24 17:01 | XMS_ITS | Encounter Summary ---
Author Organization [facility] Address [address] [place] [address] Care Team Providers Care Admin Prog Coord Name Role Phone Yo Chambers MD Primary Care Provider +1- [phone] Encounter Details Date Type Department Care Team (Late st Contact Info) Description 01/14/2025 Lab Requisition [facility] - Main Lab [address] [place] [address] Yo Chabmers MD [address] [place] [address] Unspecified atrial fibrillation (CMS/HCC V24, CMS/HCC V28) [...] Diagnosis Comments PROTHROMBIN TIME WITH INR Routine 01/15/2025 6:07 AM EDT Unspecified atrial fibrillation (CMS/HCC V24, CMS/HCC V28) documented in this encounter Results * (ABNORMAL) Prothrombin time with INR (01/15/2025 6:07 AM EDT) Protime 18.5(H) 10.6 - 13.9 sec LAB COAGULATION METHOD 01/15/2025 12:25 PM EDT [facility] INR 1.5 LAB COAGULATION METHOD 01/15/2025 12:25 PM EDT [facility] Blood Venous blood specimen / Unknown Venipuncture / Unknown 01/15/2025 6:07 AM EDT 01/15/2025 11:39 AM EDT us Yo Chambers MD LAB BLOOD ORDERABLES Final Result [facility] [address] [place] [address], documented in this encounter Visit Diagnoses Diagnosis Unspecified atrial fibrillation (CMS/HCC V24, CMS/HCC V28) documented in this encounter Care Teams Admin Prog Coord Relationship Specialty Start Date End Date Yo Chambers MD [address] [place] [address] PCP - General 05/19/21 documented as of this encounter
--- OUTSIDE RECORDS SUMMARY | 2025-06-24 17:01 | XMS_ITS | Encounter Summary ---
Author Organization [facility] Address [address] [place] [address] Care Team Providers Care Roll Tester Name Role Phone Yo Chambers MD Primary Care Provider +1- [phone] Encounter Details Date Type Department Care Team (Late st Contact Info) Description 10/07/2024 Lab Requisition [facility] - Main Lab [address] [place] [address] Yo Chambers MD [address] [place] [address] Unspecified atrial fibrillation (CMS/HCC V24, CMS/HCC V28) [...] LAB COAGULATION METHOD 10/08/2024 11:31 AM EST [facility] LAB INR 2.0 LAB COAGULATION METHOD 10/08/2024 11:31 AM EST [facility] LAB Blood Venous blood specimen / Unknown Venipuncture / Unknown 10/08/2024 8:39 AM EST 10/08/2024 10:57 AM EST Yo Chambers MD LAB BLOOD ORDERABLES Final Result [facility] LAB [address] [place] [address], documented in this encounter Visit Diagnoses Diagnosis Unspecified atrial fibrillation (CMS/HCC V24, CMS/HCC V28) documented in this encounter Additional Health Concerns Infection Onset Date Last Indicated Resolved Time Influenza 10/07/2024 10/07/2024 10/31/2024 7:06 PM EDT Respiratory Rule-Out 10/08/2024 10/07/2024 025 2:58 PM EST documented as of this encounter Care Teams Roll Tester Relationship Specialty Start Date End Date Yo Chambers MD [address] [place] [address] PCP - General 05/19/21 documented as of this encounter
--- OUTSIDE RECORDS SUMMARY | 2025-06-24 17:01 | XMS_ITS | Encounter Summary ---
Author Organization [facility] Address [address] [place] [address] Care Team Providers Care Children'S Tutor Nursery Name Role Phone Yo Chambers MD Primary Care Provider +1- [phone] Encounter Details Date Type Department Care Team (Late st Contact Info) Description 09/30/2024 Lab Requisition [facility] - Main Lab [address] [place] [address] Yo Chambers MD [address] [place] [address] Unspecified atrial fibrillation (CMS/HCC V24, CMS/HCC V28) [...] LAB COAGULATION METHOD 10/01/2024 12:19 PM EST [facility] LAB INR 1.8 LAB COAGULATION METHOD 10/01/2024 12:19 PM EST [facility] LAB Blood Venous blood specimen / Unknown Venipuncture / Unknown 10/01/2024 7:06 AM EST 10/01/2024 11:55 AM EST Yo Chambers MD LAB BLOOD ORDERABLES Final Result [facility] [address] [place] [address], documented in this encounter Visit Diagnoses Diagnosis Unspecified atrial fibrillation (CMS/HCC V24, CMS/HCC V28) documented in this encounter Additional Health Concerns Infection Onset Date Last Indicated Resolved Time Influenza 10/07/2024 10/07/2024 10/31/2024 7:06 PM EDT Respiratory Rule-Out 10/08/2024 10/07/2024 025 2:58 PM EST documented as of this encounter Care Teams Children'S Tutor Nursery Relationship Specialty Start Date End Date Yo Chambers MD [address] [place] [address] PCP - General 05/19/21 documented as of this encounter
--- OUTSIDE RECORDS SUMMARY | 2025-06-24 17:01 | XMS_ITS | Encounter Summary ---
Author Organization [facility] Address [address] [place] [address] Care Team Providers Care Bottom Loader Name Role Phone Yo Chambers MD Primary Care Provider +1- [phone] Encounter Details Date Type Department Care Team (Late st Contact Info) Description 01/05/2025 Lab Requisition [facility] - Main Lab [address] [place] [address] Yo Chambers MD [address] [place] [address] Unspecified atrial fibrillation (CMS/HCC V24, CMS/HCC V28) [...] Diagnosis Comments PROTHROMBIN TIME WITH INR Routine 01/07/2025 6:14 AM EDT Unspecified atrial fibrillation (CMS/HCC V24, CMS/HCC V28) documented in this encounter Results * (ABNORMAL) Prothrombin time with INR (01/07/2025 6:14 AM EDT) Protime 26.9(H) 10.6 - 13.9 sec LAB COAGULATION METHOD 01/07/2025 10:[address] [facility] INR 2.2 LAB COAGULATION METHOD 01/07/2025 10:[address] [facility] ([facility] Blood Venous blood specimen / Unknown Venipuncture / Unknown 01/07/2025 6:14 AM EDT 01/07/2025 10:29 AM EDT us Yo Chambers MD LAB BLOOD ORDERABLES Final Result [facility] [address] [place] [address], documented in this encounter Visit Diagnoses Diagnosis Unspecified atrial fibrillation (CMS/HCC V24, CMS/HCC V28) documented in this encounter Care Teams Bottom Loader Relationship Specialty Start Date End Date Yo Chambers MD [address] [place] [id number] PCP - General 05/19/21 documented as of this encounter
--- OUTSIDE RECORDS SUMMARY | 2025-06-24 17:01 | XMS_ITS | Encounter Summary ---
Author Organization [facility] Address [address] [place] [address] Care Team Providers Care Cooking Teacher Name Role Phone Yo Chambers MD Primary Care Provider +1- [phone] Encounter Details Date Type Department Care Team (Late st Contact Info) Description 02/15/2025 Lab Requisition [facility] - Main Lab [address] [place] [address] Yo Chambers MD [address] [place] [address] Unspecified atrial fibrillation (CMS/HCC V24, CMS/HCC V28) [...] Diagnosis Comments PROTHROMBIN TIME WITH INR Routine 02/18/2025 5:22 AM EDT Unspecified atrial fibrillation (CMS/HCC V24, CMS/HCC V28) documented in this encounter Results * (ABNORMAL) Prothrombin time with INR (02/18/2025 5:22 AM EDT) Protime 19.4(H) 10.6 - 13.9 sec LAB COAGULATION METHOD 02/18/2025 11:35 AM EDT [facility] INR 1.6 LAB COAGULATION METHOD 02/18/2025 11:35 AM EDT [facility] Blood Venous blood specimen / Unknown Venipuncture / Unknown 02/18/2025 5:22 AM EDT 02/18/2025 11:03 AM EDT us Yo Chambers MD LAB BLOOD ORDERABLES Final Result [facility] [address] [place] [address], documented in this encounter Visit Diagnoses Diagnosis Unspecified atrial fibrillation (CMS/HCC V24, CMS/HCC V28) documented in this encounter Care Teams Cooking Teacher Relationship Specialty Start Date End Date Yo Chambers MD [address] [place] [address] PCP - General 05/19/21 documented as of this encounter
--- OUTSIDE RECORDS SUMMARY | 2025-06-24 17:01 | XMS_ITS | Encounter Summary ---
Author Organization [facility] Address [address] [place] [address] Care Team Providers Care Tenterer Name Role Phone Yo Chambers MD Primary Care Provider +1- [phone] Encounter Details Date Type Department Care Team (Late st Contact Info) Description 10/08/[address] [facility] - Main Lab [address] [place] [address] Yo Chambers MD [address] [place] [address] Fever, unspecified; Shortness of breath Social History [...] Procedure Name Priority Date/Time Associated Diagnosis Comments [id number], RSV, FLU A AND B QUALITATIVE RT-PCR, LOCAL REFERENCE LAB Routine 10/07/2024 12:00 AM EST Fever, unspecified Shortness of breath documented in this encounter Results * (ABNORMAL) [id number], RSV, Influenza A and B qualitative RT-PCR (10/07/2024 12:00 AM EST) SARS COV-2 Not Detected Not Detected LAB MOLECULAR DIAGNOSTICS METHOD 10/08/2024 2:58 PM EST [facility] Comment: Disclaimer: The manner in which this information is used to guide patient care is the responsibility of the healthcare provider. Testing was performed using the [employer] Al[employer] m SARS-CoV-2 test. This test has [...] for Healthcare Providers can be found at: https://www.fda.gov/media/252132/download Fact sheet for Patients can be found at: https://www.fda.gov/media/311614/download Influenza A PCR Detected(A ) Not Detected LAB MOLECULAR DIAGNOSTICS METHOD 10/08/2024 2:58 PM EST [facility] Comment:This patient is posi tive for influenza A. If the patient is admitted, please order the Respiratory Virus Panel PCR (Epic ID: [id number]) so our lab can subtype the influenza A, per CDC recommendations. Influenza B PCR Not Detected Not Detected LAB MOLECULAR DIAGNOSTICS METHOD 10/08/2024 2:58 PM [facility] RSV PCR Not Detected Not Detected LAB MOLECULAR DIAGNOSTICS METHOD 10/08/2024 2:58 PM [facility] Swab Nasopharyngeal structure / Unknown Non-blood Collection / Unknown 10/07/2024 10/08/2024 10:57 AM EST us Yo Chambers MD LAB MICROBIOLOGY - GENERAL ORDERABLES Final Result [facility] [address] [place] [address], documented in this encounter Visit Diagnoses Diagnosis Fever, unspecified Shortness of breath documented in this encounter Additional Health Concerns Infection Onset Date Last Indicated Resolved Time Influenza 10/07/2024 10/07/2024 10/31/2024 7:06 PM EDT Respiratory Rule-Out 10/08/2024 10/07/2024 025 2:58 PM EST documented as of this encounter Care Teams Tenterer Relationship Specialty Start Date End Date Yo Chambers MD [address] [place] [address] PCP - General 05/19/21 documented as of this encounter
--- OUTSIDE RECORDS SUMMARY | 2025-06-24 17:01 | XMS_ITS | Encounter Summary ---
Author Organization [facility] Address [address] [place] [address] Care Team Providers Care Ppap Coordinator Name Role Phone Unavailable Primary Care Provider Unavailabl e Encounter Details Date Type Department Care Team (Late st Contact Info) Description 08/31/2024 Dental Interim Note [facility] [address] [place] [address] Etienne Mehta DDS [address] [place] [address] Social History Tobacco Use Types Packs/Day Years [...]
--- OUTSIDE RECORDS SUMMARY | 2025-06-24 17:01 | XMS_ITS | Encounter Summary ---
Author Organization [facility] Address [address] [place] [address] Care Team Providers Care Millinery Copyist Name Role Phone Yo Chambers MD Primary Care Provider +1- [phone] Encounter Details Date Type Department Care Team (Late st Contact Info) Description 10/28/[address] [facility] - Main Lab [address] [place] [address] Yo Chambers MD [address] [place] [address] Unspecified atrial fibrillation (CMS/HCC V24, CMS/HCC V28) [...] LAB COAGULATION METHOD 10/29/2024 10:46 AM EDT [facility] ([facility] INR 2.0 LAB COAGULATION METHOD 10/29/2024 10:46 AM EDT [facility] Blood Venous blood specimen / Unknown Venipuncture / Unknown 10/29/2024 6:10 AM EDT 10/29/2024 10:02 AM EDT Yo Chambers MD LAB BLOOD ORDERABLES Final Result [facility] [address] [place] [address], documented in this encounter Visit Diagnoses Diagnosis Unspecified atrial fibrillation (CMS/HCC V24, CMS/HCC V28) documented in this encounter Additional Health Concerns Infection Onset Date Last Indicated Resolved Time Influenza 10/07/2024 10/07/2024 10/31/2024 7:06 PM EDT documented as of this encounter Care Teams Millinery Copyist Relationship Specialty Start Date End Date Yo Chambers MD [address] [place] [address] PCP - General 05/19/21 documented as of this encounter
--- OUTSIDE RECORDS SUMMARY | 2025-06-24 17:01 | XMS_ITS | Encounter Summary ---
Author Organization [facility] Address [address] [place] [address] Care Team Providers Care Bottle Assembler Name Role Phone Yo Chambers MD Primary Care Provider +1- [phone] Encounter Details Date Type Department Care Team (Late st Contact Info) Description 12/01/2024 Lab Requisition [facility] - Main Lab [address] [place] [address] Yo Chambers MD [address] [place] [address] Unspecified atrial fibrillation (CMS/HCC V24, CMS/HCC V28) [...] LAB COAGULATION METHOD 12/03/2024 11:29 AM EDT [facility] INR 1.9 LAB COAGULATION METHOD 12/03/2024 11:29 AM EDT [facility] Blood Venous blood specimen / Unknown Venipuncture / Unknown 12/03/2024 6:30 AM EDT 12/03/2024 11:07 AM EDT us Yo Chambers MD LAB BLOOD ORDERABLES Final Result [facility] [address] [place] [address], documented in this encounter Visit Diagnoses Diagnosis Unspecified atrial fibrillation (CMS/HCC V24, CMS/HCC V28) documented in this encounter Care Teams Bottle Assembler Relationship Specialty Start Date End Date Yo Chambers MD [address] [place] [address] PCP - General 05/19/21 documented as of this encounter
--- OUTSIDE RECORDS SUMMARY | 2025-06-24 17:01 | XMS_ITS | Encounter Summary ---
Author Organization [facility] Address [address] [place] [address] Care Team Providers Care Solutions Sales Executive Name Role Phone Yo Chambers MD Primary Care Provider +1- [phone] Encounter Details Date Type Department Care Team (Late st Contact Info) Description 09/22/2024 Lab Requisition [facility] - Main Lab [address] [place] [address] Yo Chambers MD [address] [place] [address] Unspecified atrial fibrillation (CMS/HCC V24, CMS/HCC V28) [...] 4:52 AM EST 09/24/2024 12:06 PM EST Yo Chambers MD LAB BLOOD ORDERABLES Final Result [facility] [address] [place] [address], documented in this encounter Visit Diagnoses Diagnosis Unspecified atrial fibrillation (CMS/HCC V24, CMS/HCC V28) documented in this encounter Additional Health Concerns Infection Onset Date Last Indicated Resolved Time Influenza 10/07/2024 10/07/2024 10/31/2024 7:06 PM EDT Respiratory Rule-Out 10/08/2024 10/07/2024 025 2:58 PM EST documented as of this encounter Care Teams Solutions Sales Executive Relationship Specialty Start Date End Date Yo Chambers MD [address] [place] [address] PCP - General 05/19/21 documented as of this encounter
--- OUTSIDE RECORDS SUMMARY | 2025-06-24 17:01 | XMS_ITS | Encounter Summary ---
Author Organization [facility] Address [address] [place] [address] Care Team Providers Care Railroad Signal Technician Name Role Phone Yo Chambers MD Primary Care Provider +1- [phone] Encounter Details Date Type Department Care Team (Late st Contact Info) Description 02/08/2025 Lab Requisition [facility] - Main Lab [address] [facility] [place] [address] Yo Chambers MD [address] [place] [address] Unspecified atrial fibrillation (CMS/HCC V24, CMS/[facility] V28); Shortness of breath; Chronic kidney disease, unspecified; Pure hypercholesterolemia, unspecified; Type 2 diabetes mellitus without complications (CMS/HCC V24, CMS/[facility] V28); Vitamin D deficiency, unspecified; Hypothyroidism, unspecified Social History Tobacco Use Types Packs/Day [...] PANEL WITH REFLEX TO DIRECT LDL Routine 02/11/2025 6:15 AM EDT Unspecified atrial fibrillation (CMS/HCC V24, CMS/HCC V28) Shortness of breath Chronic kidney disease, unspecified Pure hypercholesterolemia, unspecified Type 2 diabetes mellitus without complications (CMS/HCC V24, CMS/HCC V28) Vitamin D deficiency, unspecified Hypothyroidism, unspecified PROTHROMBIN TIME WITH INR Routine 02/11/2025 6:15 AM EDT Unspecified atrial fibrillation ([facility]/HCC V24, [facility]/HCC V28) Shortness of breath Chronic kidney disease, unspecified Pure hypercholesterolemia, unspecified Type 2 diabetes mellitus without complications (CMS/HCC V24, CMS/HCC V28) Vitamin D deficiency, unspecified Hypothyroidism, unspecified COMPLETE BLOOD COUNT Routine 02/11/2025 6:15 AM EDT Unspecified atrial fibrillation (CMS/HCC V24, CMS/HCC V28) Shortness of breath Chronic kidney disease, unspecified Pure hypercholesterolemia, unspecified Type 2 diabetes mellitus without complications (CMS/HCC V24, CMS/HCC V28) Vitamin D deficiency, unspecified Hypothyroidism, unspecified THYROID STIMULATING HORMONE Routine 02/11/2025 6:15 AM EDT Unspecified atrial fibrillation (CMS/HCC V24, CMS/HCC V28) Shortness of breath Chronic kidney disease, unspecified Pure hypercholesterolemia, unspecified Type 2 diabetes mellitus without complications (CMS/HCC V24, CMS/HCC V28) Vitamin D deficiency, unspecified Hypothyroidism, unspecified HEMOGLOBIN A1C Routine 02/11/2025 6:15 AM EDT Unspecified atrial fibrillation (CMS/HCC V24, CMS/HCC V28) Shortness of breath Chronic kidney disease, unspecified Pure hypercholesterolemia, unspecified Type 2 diabetes mellitus without complications (CMS/HCC V24, CMS/HCC V28) Vitamin D deficiency, unspecified Hypothyroidism, unspecified FOLATE Routine 02/11/2025 6:15 AM EDT Unspecified atrial fibrillation (CMS/HCC V24, CMS/HCC V28) Shortness of breath Chronic kidney disease, unspecified Pure hypercholesterolemia, unspecified Type 2 diabetes mellitus without complications (CMS/HCC V24, CMS/HCC V28) Vitamin D deficiency, unspecified Hypothyroidism, unspecified VITAMIN B12 Routine 02/11/2025 6:15 AM EDT Unspecified atrial fibrillation (CMS/HCC V24, CMS/HCC V28) Shortness of breath Chronic kidney disease, unspecified Pure hypercholesterolemia, unspecified Type 2 diabetes mellitus without complications ([facility] V24, [facility] V28) Vitamin D deficiency, unspecified Hypothyroidism, unspecified COMPREHENSIVE METABOLIC PANEL Routine 02/11/2025 6:15 AM EDT Unspecified atrial fibrillation ([facility] V24, [facility] V28) Shortness of breath Chronic kidney disease, unspecified Pure hypercholesterolemia, unspecified Type 2 diabetes mellitus without complications ([facility] V24, [facility] V28) Vitamin D deficiency, unspecified Hypothyroidism, unspecified documented in this encounter Results * Folate (02/11/2025 6:15 AM EDT) Pathologist [facility] Folate 5.5 2.8 - 17.0 ng/ml LAB CHEMISTRY METHOD 02/11/2025 11:48 AM EDT [facility] Blood Venous blood specimen / Unknown Venipuncture / Unknown 02/11/2025 6:15 AM EDT 02/11/2025 9:42 AM EDT Yo Chambers MD LAB BLOOD ORDERABLES Final Result Performing Organization Address City/[facility]/ZIP Co de Phone Number [facility] [address] [place] [address], [place] [phone] * Vitamin B12 (02/11/2025 6:15 AM EDT) Pathologist [facility] Vitamin B-12 265 250 - 900 pcg/mL LAB CHEMISTRY METHOD 02/11/2025 11:48 AM EDT [facility] Blood Venous blood specimen / Unknown Venipuncture / Unknown 02/11/2025 6:15 AM EDT 02/11/2025 9:42 AM EDT us Yo Chambers MD LAB BLOOD ORDERABLES Final Result [facility] [address] [place] [address], [place] [phone] * Thyroid stimulating hormone (02/11/2025 6:15 AM EDT) TSH 1.75 0.40 - 4.00 mcIU/mL LAB CHEMISTRY METHOD 02/11/2025 12:36 PM EDT [facility] Blood Venous blood specimen / Unknown Venipuncture / Unknown 02/11/2025 6:15 AM EDT 02/11/2025 9:42 AM EDT us Yo Chambers MD LAB BLOOD ORDERABLES Final Result [facility] [address] [place] [address], * (ABNORMAL) Lipid panel with reflex to direct LDL (02/11/2025 6:15 AM EDT) Pathologist [facility] Cholesterol 183 0 - 200 mg/dL LAB CHEMISTRY METHOD 02/11/2025 11:48 AM EDT [facility] Triglycerides 126 0 - 150 mg/dL LAB CHEMISTRY METHOD 02/11/2025 11:48 AM [facility] HDL 42 >=40 mg/dL LAB CHEMISTRY METHOD 02/11/2025 11:48 AM T [facility] LDL Calculated 116(H) 0 - 100 mg/dL LAB CHEMISTRY METHOD 02/11/2025 11:48 AM [facility] VLDL Cholesterol Ancelmo 25.2 mg/dL LAB CHEMISTRY METHOD 02/11/2025 11:48 AM T [facility] Non HDL Chol. (LDL+VLDL) 141 <145 mg/dL LAB CHEMISTRY METHOD 02/11/2025 11:48 AM [facility] Chol/HDL Ratio 4.4 0.0 - 4.4 LAB CHEMISTRY METHOD 02/11/2025 11:48 AM [facility] Blood Venous blood specimen / Unknown Venipuncture / Unknown 02/11/2025 6:15 AM EDT 02/11/2025 9:42 AM EDT Yo Chambers MD LAB BLOOD ORDERABLES Final Result [facility] [address] [place] [address], [place] [phone] * (ABNORMAL) Comprehensive metabolic panel (02/11/2025 6:15 AM EDT) Sodium 139 133 - 145 mmol/L LAB CHEMISTRY METHOD 02/11/2025 11:25 AM [facility] Potassium 4.4 3.5 - 5.5 mmol/L LAB CHEMISTRY METHOD 02/11/2025 11:25 AM [facility] Chloride 110 96 - 110 mmol/L LAB CHEMISTRY METHOD 02/11/2025 11:25 AM [facility] CO2 24 21 - 32 mmol/L LAB CHEMISTRY METHOD 02/11/2025 11:25 AM [facility] Anion Gap 5 3 - 11 LAB CHEMISTRY METHOD 02/11/2025 11:25 AM [facility] Glucose 74 70 - 100 mg/dL LAB CHEMISTRY METHOD 02/11/2025 11:25 AM [facility] BUN 13 5 - 25 mg/dL LAB CHEMISTRY METHOD 02/11/2025 11:25 AM [facility] Creatinine 0.93 0.50 - 1.10 mg/dL LAB CHEMISTRY METHOD 02/11/2025 11:25 AM [facility] eGFR 65 >=60 mL/min/1. 73m2 LAB CHEMISTRY METHOD 02/11/2025 11:25 AM [facility] Comment:Calculation based on the Chronic Kidney Disease Epidemiology Collaboration (CKD-EPI) equation refit without adjustment for race. BUN/Creatinine Ratio 14.0 LAB CHEMISTRY METHOD 02/11/2025 11:25 AM EDT [facility] Calcium 8.6 8.5 - 10.5 mg/dL LAB CHEMISTRY METHOD 02/11/2025 11:25 AM [facility] AST (SGOT) 19 10 - 42 unit/L LAB CHEMISTRY METHOD 02/11/2025 11:25 AM [facility] ALT (SGPT) 20 10 - 60 unit/L LAB CHEMISTRY METHOD 02/11/2025 11:25 AM T [facility] Alkaline Phosphatase 79 42 - 121 unit/L LAB CHEMISTRY METHOD 02/11/2025 11:25 AM [facility] Total Protein 5.6(L) 6.0 - 8.0 g/dL LAB CHEMISTRY METHOD 02/11/2025 11:25 AM [facility] Albumin 2.8(L) 3.2 - 5.0 g/dL LAB CHEMISTRY METHOD 02/11/2025 11:25 AM [facility] Total Bilirubin 0.3 0.0 - 1.4 mg/dL LAB CHEMISTRY METHOD 02/11/2025 11:25 AM [facility] Blood Venous blood specimen / Unknown Venipuncture / Unknown 02/11/2025 6:15 AM EDT 02/11/2025 9:42 AM EDT us Yo Chambers MD LAB BLOOD ORDERABLES Final Result [facility] [address] [place] [address], * Hemoglobin A1c (02/11/2025 6:15 AM EDT) Hemoglobin A1C 5.7 <6.5 % LAB CHEMISTRY METHOD 02/11/2025 1:30 PM EDT [facility] Mean Bld Glu Estim. 117 mg/dL LAB CHEMISTRY METHOD 02/11/2025 1:30 PM EDT [facility] Blood Venous blood specimen / Unknown Venipuncture / Unknown 02/11/2025 6:15 AM EDT 02/11/2025 9:42 AM EDT Yo Chambers MD LAB BLOOD ORDERABLES Final Result [facility] [address] [place] [address], * (ABNORMAL) Complete blood count (02/11/2025 6:15 AM EDT) WBC 4.8 4.8 - 10.8 K/mcL LAB HEMETOLOGY METHOD 02/11/2025 10:50 AM EDT [facility] RBC 3.80 3.80 - 4.80 M/[facility] LAB HEMETOLOGY METHOD 02/11/2025 10:50 AM EDT [facility] Hemoglobin 12.0 11.5 - 16.0 g/dL LAB HEMETOLOGY METHOD 02/11/2025 10:50 AM EDT [facility] Hematocrit 37.6 35.0 - 47.0 % LAB HEMETOLOGY METHOD 02/11/2025 10:50 AM EDT [facility] MCV 99.5(H) 79.0 - 98.0 FL LAB HEMETOLOGY METHOD 02/11/2025 10:50 AM EDT [facility] MCH 31.7 27.0 - 32.0 pcg LAB HEMETOLOGY METHOD 02/11/2025 10:50 AM EDT [facility] MCHC 31.9(L) 32.0 - 37.0 g/dL LAB HEMETOLOGY METHOD 02/11[facility]2025 10:[facility] RDW 14.3 11.0 - 15.0 % LAB HEMETOLOGY METHOD 02/11/2025 10:50 AM EDT [facility] Platelets 192 130 - 400 K/mcL LAB HEMETOLOGY METHOD 02/11/2025 10:50 AM EDT [facility] MPV 11.0 7.0 - 11.0 FL LAB HEMETOLOGY METHOD 02/11/2025 10:50 AM EDT [facility] NRBC 0.0 <1.0 % LAB HEMETOLOGY METHOD 02/11/2025 10:50 AM EDT [facility] NRBC Absolute 0.00 <0.10 K/mcL LAB HEMETOLOGY METHOD 02/11/2025 10:50 AM EDT [facility] Blood Venous blood specimen / Unknown Venipuncture / Unknown 02/11/2025 6:15 AM EDT 02/11/2025 9:42 AM EDT Yo Chambers MD LAB BLOOD ORDERABLES Final Result [facility] [address] [place] [address], [place] [phone] * (ABNORMAL) Prothrombin time with INR (02/11/2025 6:15 AM EDT) Protime 21.2(H) 10.6 - 13.9 sec LAB COAGULATION METHOD 02/11/2025 10:24 AM EDT [facility] INR 1.7 LAB COAGULATION METHOD 02/11/2025 10:24 AM EDT [facility] Blood Venous blood specimen / Unknown Venipuncture / Unknown 02/11/2025 6:15 AM EDT 02/11/2025 9:42 AM EDT us Yo Chambers MD LAB BLOOD ORDERABLES Final Result [facility] [address] [place] [address], [place] [phone] documented in this encounter Visit Diagnoses Diagnosis Unspecified atrial fibrillation ([facility] V24, [facility] V28) Shortness of breath Chronic kidney disease, unspecified Pure hypercholesterolemia, unspecified Type 2 diabetes mellitus without complications ([facility] V24, [facility] V28) Vitamin D deficiency, unspecified Hypothyroidism, unspecified documented in this encounter Care Teams Railroad Signal Technician Relationship Specialty Start Date End Date Yo Chambers MD [address] [place] [phone] PCP - General 05/19/21 documented as of this encounter
--- OUTSIDE RECORDS SUMMARY | 2025-06-24 17:01 | XMS_ITS | Encounter Summary ---
Author Organization [facility] Address [address] [place] [address] Care Team Providers Care Hotel Room Attendant Name Role Phone Yo Chambers MD Primary Care Provider +1- [phone] Encounter Details Date Type Department Care Team (Late st Contact Info) Description 03/01/2025 Lab Requisition [facility] - Main Lab [address] [place] [address] Yo Chambers MD [address] [place] [address] Unspecified atrial fibrillation (CMS/HCC V24, CMS/HCC V28) [...] Diagnosis Comments PROTHROMBIN TIME WITH INR Routine 03/04/2025 5:42 AM EDT Unspecified atrial fibrillation (CMS/HCC V24, CMS/HCC V28) documented in this encounter Results * (ABNORMAL) Prothrombin time with INR (03/04/2025 5:42 AM EDT) Protime 20.9(H) 10.6 - 13.9 sec LAB COAGULATION METHOD 03/04/2025 11:34 AM EDT [facility] INR 1.7 LAB COAGULATION METHOD 03/04/2025 11:34 AM EDT [facility] Blood Venous blood specimen / Unknown Venipuncture / Unknown 03/04/2025 5:42 AM EDT 03/04/2025 11:13 AM EDT us Yo Chambers MD LAB BLOOD ORDERABLES Final Result [facility] [address] [place] [address], documented in this encounter Visit Diagnoses Diagnosis Unspecified atrial fibrillation (CMS/HCC V24, CMS/HCC V28) documented in this encounter Care Teams Hotel Room Attendant Relationship Specialty Start Date End Date Yo Chambers MD [address] [place] [address] PCP - General 05/19/21 documented as of this encounter
--- OUTSIDE RECORDS SUMMARY | 2025-06-24 17:01 | XMS_ITS | Encounter Summary ---
Author Organization [facility] Address [address] [place] [address] Care Team Providers Care Cooking Teacher Name Role Phone Yo Chambers MD Primary Care Provider +1- [phone] Encounter Details Date Type Department Care Team (Late st Contact Info) Description 10/13/2024 Lab Requisition [facility] - Main Lab [address] [place] [address] Yo Chambers MD [address] [place] [address] Unspecified atrial fibrillation (CMS/HCC V24, CMS/HCC V28) [...] LAB COAGULATION METHOD 10/15/2024 11:21 AM EST [facility] INR 3.9 LAB COAGULATION METHOD 10/15/2024 11:21 AM EST [facility] Blood Venous blood specimen / Unknown Venipuncture / Unknown 10/15/2024 6:28 AM EST 10/15/2024 10:57 AM EST Yo Chambers MD LAB BLOOD ORDERABLES Final Result [facility] [address] [place] [address], documented in this encounter Visit Diagnoses Diagnosis Unspecified atrial fibrillation (CMS/HCC V24, CMS/HCC V28) documented in this encounter Additional Health Concerns Infection Onset Date Last Indicated Resolved Time Influenza 10/07/2024 10/07/2024 10/31/2024 7:06 PM EDT documented as of this encounter Care Teams Cooking Teacher Relationship Specialty Start Date End Date Yo Chambers MD [address] [place] [address] PCP - General 05/19/21 documented as of this encounter
--- OUTSIDE RECORDS SUMMARY | 2025-06-24 17:01 | XMS_ITS | Encounter Summary ---
Author Organization [facility] Address [address] [place] [address] Care Team Providers Care Client Retention Specialist Name Role Phone Yo Chambers MD Primary Care Provider +1- [phone] Encounter Details Date Type Department Care Team (Late st Contact Info) Description 12/30/2024 Lab Requisition [facility] - Main Lab [address] [place] [address] Yo Chambers MD [address] [place] [address] Unspecified atrial fibrillation (CMS/HCC V24, CMS/HCC V28) [...] Diagnosis Comments PROTHROMBIN TIME WITH INR Routine 12/31/2024 6:10 AM EDT Unspecified atrial fibrillation (CMS/HCC V24, CMS/HCC V28) documented in this encounter Results * (ABNORMAL) Prothrombin time with INR (12/31/2024 6:10 AM EDT) Protime 24.1(H) 10.6 - 13.9 sec LAB COAGULATION METHOD 12/31/2024 10:55 AM EDT [facility] INR 1.9 LAB COAGULATION METHOD 12/31/2024 10:55 AM EDT [facility] Blood Venous blood specimen / Unknown Venipuncture / Unknown 12/31/2024 6:10 AM EDT 12/31/2024 10:17 AM EDT us Yo Chambers MD LAB BLOOD ORDERABLES Final Result [facility] [address] [place] [address], documented in this encounter Visit Diagnoses Diagnosis Unspecified atrial fibrillation (CMS/HCC V24, CMS/HCC V28) documented in this encounter Care Teams Client Retention Specialist Relationship Specialty Start Date End Date Yo Chambers MD [address] [place] [address] PCP - General 05/19/21 documented as of this encounter
--- OUTSIDE RECORDS SUMMARY | 2025-06-24 17:01 | XMS_ITS | Encounter Summary ---
Author Organization [facility] Address [address] [place] [address] Care Team Providers Care Chief Order Dispatcher Name Role Phone Yo Chambers MD Primary Care Provider +1- [phone] Encounter Details Date Type Department Care Team (Late st Contact Info) Description 01/25/[address] [facility] - Main Lab [address] [place] [address] Yo Chambers MD [address] [place] [address] Unspecified atrial fibrillation (CMS/HCC V24, CMS/HCC V28) [...] Diagnosis Comments PROTHROMBIN TIME WITH INR Routine 01/28/2025 6:48 AM EDT Unspecified atrial fibrillation (CMS/HCC V24, CMS/HCC V28) documented in this encounter Results * (ABNORMAL) Prothrombin time with INR (01/28/2025 6:48 AM EDT) Protime 24.4(H) 10.6 - 13.9 sec LAB COAGULATION METHOD 01/28/2025 11:45 AM EDT [facility] INR 2.0 LAB COAGULATION METHOD 01/28/2025 11:45 AM EDT [facility] Blood Venous blood specimen / Unknown Venipuncture / Unknown 01/28/2025 6:48 AM EDT 01/28/2025 11:02 AM EDT us Yo Chambers MD LAB BLOOD ORDERABLES Final Result [facility] [address] [place] [address], documented in this encounter Visit Diagnoses Diagnosis Unspecified atrial fibrillation (CMS/HCC V24, CMS/HCC V28) documented in this encounter Care Teams Chief Order Dispatcher Relationship Specialty Start Date End Date Yo Chambers MD [address] [place] [address] PCP - General 05/19/21 documented as of this encounter
--- OUTSIDE RECORDS SUMMARY | 2025-06-24 17:01 | XMS_ITS | Encounter Summary ---
Author Organization [facility] Address [address] [place] [address] Care Team Providers Care Roof Designer Name Role Phone Yo Chambers MD Primary Care Provider +1- [phone] Encounter Details Date Type Department Care Team (Late st Contact Info) Description 10/20/[address] [facility] - Main Lab [address] [place] [address] Yo Chambers MD [address] [place] [address] Unspecified atrial fibrillation (CMS/HCC V24, CMS/HCC V28) [...] LAB COAGULATION METHOD 10/22/2024 10:24 AM EST [facility] LAB INR 2.0 LAB COAGULATION METHOD 10/22/2024 10:24 AM EST [facility] LAB Blood Venous blood specimen / Unknown Venipuncture / Unknown 10/22/2024 6:53 AM EST 10/22/2024 10:10 AM EST Yo Chambers MD LAB BLOOD ORDERABLES Final Result [facility] LAB [address] [place] [address], documented in this encounter Visit Diagnoses Diagnosis Unspecified atrial fibrillation (CMS/HCC V24, CMS/HCC V28) documented in this encounter Additional Health Concerns Infection Onset Date Last Indicated Resolved Time Influenza 10/07/2024 10/07/2024 10/31/2024 7:06 PM EDT documented as of this encounter Care Teams Roof Designer Relationship Specialty Start Date End Date Yo Chambers MD [address] [place] [address] PCP - General 05/19/21 documented as of this encounter
--- OUTSIDE RECORDS SUMMARY | 2025-06-24 17:01 | XMS_ITS | Encounter Summary ---
Author Organization [facility] Address [address] [place] [address] Care Team Providers Care Notching Machine Operator Name Role Phone Yo Chambers MD Primary Care Provider +1- [phone] Encounter Details Date Type Department Care Team (Late st Contact Info) Description 10/17/2024 Lab Requisition [facility] - Main Lab [address] [place] [address] Yo Chambers MD [address] [place] [address] Unspecified atrial fibrillation (CMS/HCC V24, CMS/HCC V28) [...] LAB COAGULATION METHOD 10/18/2024 10:11 AM EST [facility] INR 2.6 LAB COAGULATION METHOD 10/18/2024 10:11 AM EST [facility] Blood Venous blood specimen / Unknown Venipuncture / Unknown 10/18/2024 5:26 AM EST 10/18/2024 8:37 AM EST Yo Chambers MD LAB BLOOD ORDERABLES Final Result [facility] [address] [place] [address], documented in this encounter Visit Diagnoses Diagnosis Unspecified atrial fibrillation (CMS/HCC V24, CMS/HCC V28) documented in this encounter Additional Health Concerns Infection Onset Date Last Indicated Resolved Time Influenza 10/07/2024 10/07/2024 10/31/2024 7:06 PM EDT documented as of this encounter Care Teams Notching Machine Operator Relationship Specialty Start Date End Date Yo Chambers MD [address] [place] [address] PCP - General 05/19/21 documented as of this encounter
--- OUTSIDE RECORDS SUMMARY | 2025-06-24 17:01 | XMS_ITS | Encounter Summary ---
Author Organization [facility] Address [address] [place] [address] Care Team Providers Care Lead Systems Architect Name Role Phone Yo Chambers MD Primary Care Provider +1- [phone] Encounter Details Date Type Department Care Team (Late st Contact Info) Description 02/01/2025 Lab Requisition [facility] - Main Lab [address] [place] [address] Yo Chambers MD [address] [place] [address] Unspecified atrial fibrillation (CMS/HCC V24, CMS/HCC V28) [...] Diagnosis Comments PROTHROMBIN TIME WITH INR Routine 02/04/2025 6:25 AM EDT Unspecified atrial fibrillation (CMS/HCC V24, CMS/HCC V28) documented in this encounter Results * (ABNORMAL) Prothrombin time with INR (02/04/2025 6:25 AM EDT) Protime 18.4(H) 10.6 - 13.9 sec LAB COAGULATION METHOD 02/04/2025 11:18 AM EDT [facility] INR 1.5 LAB COAGULATION METHOD 02/04/2025 11:18 AM EDT [facility] Blood Venous blood specimen / Unknown Venipuncture / Unknown 02/04/2025 6:25 AM EDT 02/04/2025 10:58 AM EDT us Yo Chambers MD LAB BLOOD ORDERABLES Final Result [facility] [address] [place] [address], documented in this encounter Visit Diagnoses Diagnosis Unspecified atrial fibrillation (CMS/HCC V24, CMS/HCC V28) documented in this encounter Care Teams Lead Systems Architect Relationship Specialty Start Date End Date Yo Chambers MD [address] [place] [address] PCP - General 05/19/21 documented as of this encounter
--- OUTSIDE RECORDS SUMMARY | 2025-06-24 17:01 | XMS_ITS | Encounter Summary ---
Author Organization [facility] Address [address] [place] [address] Care Team Providers Care In Room Dining Server Name Role Phone Yo Chambers MD Primary Care Provider +1- [phone] Encounter Details Date Type Department Care Team (Late st Contact Info) Description 09/15/2024 Lab Requisition [facility] - Main Lab [address] [place] [address] Yo Chambers MD [address] [place] [address] Unspecified atrial fibrillation (CMS/HCC V24, CMS/HCC V28) [...] LAB COAGULATION METHOD 09/17/2024 11:17 AM EST [facility] INR 1.9 LAB COAGULATION METHOD 09/17/2024 11:17 AM EST [facility] Blood Venous blood specimen / Unknown Venipuncture / Unknown 09/17/2024 5:34 AM EST 09/17/2024 10:39 AM EST Yo Chambers MD LAB BLOOD ORDERABLES Final Result [facility] [address] [place] [address], documented in this encounter Visit Diagnoses Diagnosis Unspecified atrial fibrillation (CMS/HCC V24, CMS/HCC V28) documented in this encounter Additional Health Concerns Infection Onset Date Last Indicated Resolved Time Influenza 10/07/2024 10/07/2024 10/31/2024 7:06 PM EDT Respiratory Rule-Out 10/08/2024 10/07/2024 025 2:58 PM EST documented as of this encounter Care Teams In Room Dining Server Relationship Specialty Start Date End Date Yo Chambers MD [address] [place] [address] PCP - General 05/19/21 documented as of this encounter
--- OUTSIDE RECORDS SUMMARY | 2025-06-24 17:01 | XMS_ITS | Encounter Summary ---
Author Organization [facility] Address [address] [place] [address] Care Team Providers Care Superintendent Ammunition Storage Name Role Phone Yo Chambers MD Primary Care Provider +1- [phone] Encounter Details Date Type Department Care Team (Late st Contact Info) Description 12/08/2024 Lab Requisition [facility] - Main Lab [address] [facility] [place] [address] Yo Chambers MD [address] [place] [address] Unspecified atrial fibrillation (CMS/HCC V24, CMS/HCC V28); Essential (primary) hypertension; Hyperlipidemia, unspecified Social History Tobacco Use Types [...] PANEL WITH REFLEX TO DIRECT LDL Routine 12/10/2024 5:18 AM EDT Unspecified atrial fibrillation (CMS/HCC V24, CMS/HCC V28) Essential (primary) hypertension Hyperlipidemia, unspecified PROTHROMBIN TIME WITH INR Routine 12/10/2024 5:18 AM EDT Unspecified atrial fibrillation (CMS/HCC V24, CMS/HCC V28) Essential (primary) hypertension Hyperlipidemia, unspecified COMPLETE BLOOD COUNT Routine 12/10/2024 5:18 AM EDT Unspecified atrial fibrillation (CMS/HCC V24, CMS/HCC V28) Essential (primary) hypertension Hyperlipidemia, unspecified COMPREHENSIVE METABOLIC PANEL Routine 12/10/2024 5:18 AM EDT Unspecified atrial fibrillation (CMS/HCC V24, CMS/HCC V28) Essential (primary) hypertension Hyperlipidemia, unspecified documented in this encounter Results * (ABNORMAL) Lipid panel with reflex to direct LDL (12/10/2024 5:18 AM EDT) Cholesterol 153 0 - 200 mg/dL LAB CHEMISTRY METHOD 12/10/2024 8:[address] [facility] Triglycerides 120 0 - 150 mg/dL LAB CHEMISTRY METHOD 12/10/2024 8:28 AM [facility] HDL 38(L) >=40 mg/dL LAB CHEMISTRY METHOD 12/10/2024 8:[address] [facility] LDL Calculated 91 0 - 100 mg/dL LAB CHEMISTRY METHOD 12/10/2024 8:[address] [facility] VLDL Cholesterol Ancelmo 24 mg/dL LAB CHEMISTRY METHOD 12/10/2024 8:[address] [facility] Non HDL Chol. (LDL+VLDL) 115 <145 mg/dL LAB CHEMISTRY METHOD 12/10/2024 8:[address] [facility] Chol/HDL Ratio 4.0 0.0 - 4.4 LAB CHEMISTRY METHOD 12/10/2024 8:28 AM [facility] Blood Venous blood specimen / Unknown Venipuncture / Unknown 12/10/2024 5:18 AM EDT 12/10/2024 7:31 AM EDT us Yo Chambers MD LAB BLOOD ORDERABLES Final Result [facility] [address] [place] [address], [place] [phone] * (ABNORMAL) Comprehensive metabolic panel (12/10/2024 5:18 AM EDT) Sodium 144 133 - 145 mmol/L LAB CHEMISTRY METHOD 12/10/2024 8:28 AM [facility] Potassium 3.9 3.5 - 5.5 mmol/L LAB CHEMISTRY METHOD 12/10/2024 8:28 AM [facility] Chloride 111(H) 96 - 110 mmol/L LAB CHEMISTRY METHOD 12/10/2024 8:28 AM [facility] CO2 26 21 - 32 mmol/L LAB CHEMISTRY METHOD 12/10/2024 8:28 AM [facility] Anion Gap 7 3 - 11 LAB CHEMISTRY METHOD 12/10/2024 8:28 AM [facility] Glucose 93 70 - 100 mg/dL LAB CHEMISTRY METHOD 12/10/2024 8:28 AM [facility] BUN 10 5 - 25 mg/dL LAB CHEMISTRY METHOD 12/10/2024 8:28 AM [facility] Creatinine 0.84 0.50 - 1.10 mg/dL LAB CHEMISTRY METHOD 12/10/2024 8:28 AM [facility] eGFR 73 >=60 mL/min/1. 73m2 LAB CHEMISTRY METHOD 12/10/2024 8:28 AM [facility] Comment:Calculation based on the Chronic Kidney Disease Epidemiology Collaboration (CKD-EPI) equation refit without adjustment for race. BUN/Creatinine Ratio 11.9 LAB CHEMISTRY METHOD 12/10/2024 8:28 AM [facility] Calcium 8.6 8.5 - 10.5 mg/dL LAB CHEMISTRY METHOD 12/10/2024 8:28 AM [facility] AST (SGOT) 20 10 - 42 unit/L LAB CHEMISTRY METHOD 12/10/2024 8:28 AM [facility] ALT (SGPT) 21 10 - 60 unit/L LAB CHEMISTRY METHOD 12/10/2024 8:28 AM [facility] Alkaline Phosphatase 70 42 - 121 unit/L LAB CHEMISTRY METHOD 12/10/2024 8:28 AM [facility] Total Protein 5.8(L) 6.0 - 8.0 g/dL LAB CHEMISTRY METHOD 12/10/2024 8:28 AM [facility] Albumin 2.7(L) 3.2 - 5.0 g/dL LAB CHEMISTRY METHOD 12/10/2024 8:28 AM [facility] Total Bilirubin 0.5 0.0 - 1.4 mg/dL LAB CHEMISTRY METHOD 12/10/2024 8:28 AM [facility] Blood Venous blood specimen / Unknown Venipuncture / Unknown 12/10/2024 5:18 AM EDT 12/10/2024 7:31 AM EDT us Yo Chambers MD LAB BLOOD ORDERABLES Final Result [facility] [address] [place] [address], [place] [phone] * (ABNORMAL) Complete blood count (12/10/2024 5:18 AM EDT) WBC 4.1(L) 4.8 - 10.8 K/mcL LAB HEMETOLOGY METHOD 12/10/2024 8:03 AM [facility] RBC 3.60(L) 3.80 - 4.80 M/mcL LAB HEMETOLOGY METHOD 12/10/2024 8:03 AM [facility] Hemoglobin 11.6 11.5 - 16.0 g/dL LAB HEMETOLOGY METHOD 12/10/2024 8:03 AM [facility] Hematocrit 35.9 35.0 - 47.0 % LAB HEMETOLOGY METHOD 12/10/2024 8:[address] [facility] MCV 98.9(H) 79.0 - 98.0 FL LAB HEMETOLOGY METHOD 12/10/2024 8:[address] [facility] MCH 32.0 27.0 - 32.0 pcg LAB HEMETOLOGY METHOD 12/10/2024 8:[address] [facility] MCHC 32.3 32.0 - 37.0 g/dL LAB HEMETOLOGY METHOD 12/10/2024 8:[address] [facility] RDW 14.5 11.0 - 15.0 % LAB HEMETOLOGY METHOD 12/10/2024 8:[address] [facility] Platelets 217 130 - 400 K/mcL LAB HEMETOLOGY METHOD 12/10/2024 8:[address] [facility] MPV 10.5 7.0 - 11.0 FL LAB HEMETOLOGY METHOD 12/10/2024 8:[address] [facility] NRBC 0.0 <1.0 % LAB HEMETOLOGY METHOD 12/10/2024 8:[address] [facility] NRBC Absolute 0.00 <0.10 K/mcL LAB HEMETOLOGY METHOD 12/10/2024 8:[address] [facility] Blood Venous blood specimen / Unknown Venipuncture / Unknown 12/10/2024 5:18 AM EDT 12/10/2024 7:31 AM EDT us Yo Chambers MD LAB BLOOD ORDERABLES Final Result [facility] [address] [place] [address], * (ABNORMAL) Prothrombin time with INR (12/10/2024 5:18 AM EDT) Protime 24.8(H) 10.6 - 13.9 sec LAB COAGULATION METHOD 12/10/2024 8:[address] [facility] INR 2.0 LAB COAGULATION METHOD 12/10/2024 8:[address] [facility] Blood Venous blood specimen / Unknown Venipuncture / Unknown 12/10/2024 5:18 AM EDT 12/10/2024 7:31 AM EDT us Yo Chambers MD LAB BLOOD ORDERABLES Final Result [facility] [address] [place] [address], [place] [phone] documented in this encounter Visit Diagnoses Diagnosis Unspecified atrial fibrillation (CMS/HCC V24, CMS/HCC V28) Essential (primary) hypertension Unspecified essential hypertension Hyperlipidemia, unspecified documented in this encounter Care Teams Superintendent Ammunition Storage Relationship Specialty Start Date End Date Yo Chambers MD [address] [place] [address] PCP - General 05/19/21 documented as of this encounter
--- OUTSIDE RECORDS SUMMARY | 2025-06-24 17:02 | XMS_ITS | Encounter Summary ---
Author Organization [facility] Address [address] [place] [address] Care Team Providers Care Senior Front End Developer Name Role Phone Yo Chambers MD Primary Care Provider +1- [phone] Encounter Details Date Type Department Care Team (Late st Contact Info) Description 08/17/2024 Lab Requisition [facility] - Main Lab [address] [place] [address] Yo Chambers MD [address] [place] [address] Unspecified atrial fibrillation (CMS/HCC V24, CMS/HCC V28) [...] LAB COAGULATION METHOD 08/20/2024 10:[address] [facility] INR 2.1 LAB COAGULATION METHOD 08/20/2024 10:[address] [facility] Blood Venous blood specimen / Unknown Venipuncture / Unknown 08/20/2024 6:33 AM EST 08/20/2024 9:55 AM EST Yo Chambers MD LAB BLOOD ORDERABLES Final Result [facility] [address] [place] [address], documented in this encounter Visit Diagnoses Diagnosis Unspecified atrial fibrillation (CMS/HCC V24, CMS/HCC V28) documented in this encounter Additional Health Concerns Infection Onset Date Last Indicated Resolved Time Influenza 10/07/2024 10/07/2024 10/31/2024 7:06 PM EDT Respiratory Rule-Out 10/08/2024 10/07/2024 025 2:58 PM EST documented as of this encounter Care Teams Senior Front End Developer Relationship Specialty Start Date End Date Yo Chambers MD [address] [place] [address] PCP - General 05/19/21 documented as of this encounter
--- OUTSIDE RECORDS SUMMARY | 2025-06-24 17:02 | XMS_ITS | Encounter Summary ---
Author Organization [facility] Address [address] [place] [address] Care Team Providers Care Kennel Operator Name Role Phone Yo Chambers MD Primary Care Provider +1- [phone] Encounter Details Date Type Department Care Team (Late st Contact Info) Description 05/31/2025 Lab Requisition [facility] - Main Lab [address] [place] [address] Yo Chambers MD [address] [place] [address] Unspecified atrial fibrillation (CMS/HCC V24, CMS/HCC V28) [...] Diagnosis Comments PROTHROMBIN TIME WITH INR Routine 06/03/2025 9:28 AM EDT Unspecified atrial fibrillation (CMS/HCC V24, CMS/HCC V28) documented in this encounter Results * (ABNORMAL) Prothrombin time with INR (06/03/2025 9:28 AM EDT) Protime 27.7(H) 10.6 - 13.9 sec LAB COAGULATION METHOD 06/03/2025 10:53 AM EDT [facility] INR 2.2 LAB COAGULATION METHOD 06/03/2025 10:53 AM EDT [facility] Blood Venous blood specimen / Unknown Venipuncture / Unknown 06/03/2025 9:28 AM EDT 06/03/2025 10:01 AM EDT us Yo Chambers MD LAB BLOOD ORDERABLES Final Result [facility] [address] [place] [address], documented in this encounter Visit Diagnoses Diagnosis Unspecified atrial fibrillation (CMS/HCC V24, CMS/HCC V28) documented in this encounter Care Teams Kennel Operator Relationship Specialty Start Date End Date Yo Chambers MD [address] [place] [address] PCP - General 05/19/21 documented as of this encounter
--- OUTSIDE RECORDS SUMMARY | 2025-06-24 17:02 | XMS_ITS | Encounter Summary ---
Author Organization [facility] Address [address] [place] [address] Care Team Providers Care Gas Analyst Name Role Phone Yo Chambers MD Primary Care Provider +1- [phone] Encounter Details Date Type Department Care Team (Late st Contact Info) Description 06/09/2025 Lab Requisition [facility] - Main Lab [address] [facility] [place] [address] Yo Chambers MD [address] [place] [address] Unspecified atrial fibrillation (CMS/HCC V24, CMS/HCC V28); [...] PANEL WITH REFLEX TO DIRECT LDL Routine 06/10/2025 7:36 AM EDT Unspecified atrial fibrillation (CMS/HCC V24, CMS/HCC V28) Essential (primary) hypertension Hyperlipidemia, unspecified PROTHROMBIN TIME WITH INR Routine 06/10/2025 7:36 AM EDT Unspecified atrial fibrillation (CMS/HCC V24, CMS/HCC V28) Essential (primary) hypertension Hyperlipidemia, unspecified COMPLETE BLOOD COUNT Routine 06/10/2025 7:36 AM EDT Unspecified atrial fibrillation (CMS/HCC V24, CMS/HCC V28) Essential (primary) hypertension Hyperlipidemia, unspecified COMPREHENSIVE METABOLIC PANEL Routine 06/10/2025 7:36 AM EDT Unspecified atrial fibrillation (CMS/HCC V24, CMS/HCC V28) Essential (primary) hypertension Hyperlipidemia, unspecified documented in this encounter Results * (ABNORMAL) Lipid panel with reflex to direct LDL (06/10/2025 7:36 AM EDT) Cholesterol 180 0 - 200 mg/dL LAB CHEMISTRY METHOD 06/10/2025 1:52 PM EDT [facility] Triglycerides 146 0 - 150 mg/dL LAB CHEMISTRY METHOD 06/10/2025 1:52 PM T [facility] HDL 42 >=40 mg/dL LAB CHEMISTRY METHOD 06/10/2025 1:52 PM [facility] LDL Calculated 109(H) 0 - 100 mg/dL LAB CHEMISTRY METHOD 06/10/2025 1:52 PM T [facility] Comment:Estimated LDL Calcul ated using equation: Total cholesterol - HDL cholesterol - (Triglycerides/5) VLDL Cholesterol Ancelmo 29.2 mg/dL LAB CHEMISTRY METHOD 06/10/2025 1:52 PM [facility] Non HDL Chol. (LDL+VLDL) 138 <145 mg/dL LAB CHEMISTRY METHOD 06/10/2025 1:52 PM EDT [facility] Chol/HDL Ratio 4.3 0.0 - 4.4 LAB CHEMISTRY METHOD 06/10/2025 1:52 PM [facility] Blood Venous blood specimen / Unknown Venipuncture / Unknown 06/10/2025 7:36 AM EDT 06/10/2025 11:35 AM EDT Yo Chambers MD LAB BLOOD ORDERABLES Final Result [facility] [address] [place] [address], [place] [phone] * (ABNORMAL) Comprehensive metabolic panel (06/10/2025 7:36 AM EDT) Sodium 143 133 - 145 mmol/L LAB CHEMISTRY METHOD 06/10/2025 1:52 PM EDT [facility] Potassium 4.1 3.5 - 5.5 mmol/L LAB CHEMISTRY METHOD 06/10/2025 1:52 PM [facility] Chloride 111(H) 96 - 110 mmol/L LAB CHEMISTRY METHOD 06/10/2025 1:52 PM [facility] CO2 28 21 - 32 mmol/L LAB CHEMISTRY METHOD 06/10/2025 1:52 PM [facility] Anion Gap 4 3 - 11 LAB CHEMISTRY METHOD 06/10/2025 1:52 PM [facility] Glucose 81 70 - 100 mg/dL LAB CHEMISTRY METHOD 06/10/2025 1:52 PM [facility] BUN 15 5 - 25 mg/dL LAB CHEMISTRY METHOD 06/10/2025 1:52 PM [facility] Creatinine 0.91 0.50 - 1.10 mg/dL LAB CHEMISTRY METHOD 06/10/2025 1:52 PM EDT [facility] eGFR 66 >=60 mL/min/1. 73m2 LAB CHEMISTRY METHOD 06/10/2025 1:52 PM [facility] Comment:Calculation based on the Chronic Kidney Disease Epidemiology Collaboration (CKD-EPI) equation refit without adjustment for race. BUN/Creatinine Ratio 16.5 LAB CHEMISTRY METHOD 06/10/2025 1:52 PM [facility] Calcium 8.5 8.5 - 10.5 mg/dL LAB CHEMISTRY METHOD 06/10/2025 1:52 PM [facility] AST (SGOT) 24 10 - 42 unit/L LAB CHEMISTRY METHOD 06/10/2025 1:52 PM EDT [facility] ALT (SGPT) 35 10 - 60 unit/L LAB CHEMISTRY METHOD 06/10/2025 1:52 PM EDT [facility] Alkaline Phosphatase 102 42 - 121 unit/L LAB CHEMISTRY METHOD 06/10/2025 1:52 PM EDT [facility] Total Protein 5.9(L) 6.0 - 8.0 g/dL LAB CHEMISTRY METHOD 06/10/2025 1:52 PM EDT [facility] Albumin 2.8(L) 3.2 - 5.0 g/dL LAB CHEMISTRY METHOD 06/10/2025 1:52 PM EDT [facility] Total Bilirubin 0.3 0.0 - 1.4 mg/dL LAB CHEMISTRY METHOD 06/10/2025 1:52 PM EDT [facility] Blood Venous blood specimen / Unknown Venipuncture / Unknown 06/10/2025 7:36 AM EDT 06/10/2025 11:35 AM EDT us Yo Chambers MD LAB BLOOD ORDERABLES Final Result [facility] [address] [place] [address], * (ABNORMAL) Complete blood count (06/10/2025 7:36 AM EDT) WBC 4.5(L) 4.8 - 10.8 K/mcL LAB HEMETOLOGY METHOD 06/10/2025 1:26 PM EDT [facility] RBC 3.80 3.80 - 4.80 M/mcL LAB HEMETOLOGY METHOD 06/10/2025 1:26 PM EDT [facility] Hemoglobin 11.9 11.5 - 16.0 g/dL LAB HEMETOLOGY METHOD 06/10/2025 1:26 PM EDT [facility] Hematocrit 37.6 35.0 - 47.0 % LAB HEMETOLOGY METHOD 06/10/2025 1:26 PM EDT [facility] MCV 100.3(H) 79.0 - 98.0 FL LAB HEMETOLOGY METHOD 06/10/2025 1:26 PM EDT [facility] MCH 31.7 27.0 - 32.0 pcg LAB HEMETOLOGY METHOD 06/10/2025 1:26 PM EDT [facility] MCHC 31.6(L) 32.0 - 37.0 g/dL LAB HEMETOLOGY METHOD 06/10/2025 1:26 PM EDT [facility] RDW 15.1(H) 11.0 - 15.0 % LAB HEMETOLOGY METHOD 06/10/2025 1:26 PM EDT [facility] Platelets 205 130 - 400 K/mcL LAB HEMETOLOGY METHOD 06/10/2025 1:26 PM EDT [facility] MPV 10.6 7.0 - 11.0 FL LAB HEMETOLOGY METHOD 06/10/2025 1:26 PM EDT [facility] NRBC 0.0 <1.0 % LAB HEMETOLOGY METHOD 06/10/2025 1:26 PM EDT [facility] NRBC Absolute 0.00 <0.10 K/mcL LAB HEMETOLOGY METHOD 06/10/2025 1:26 PM EDT [facility] Blood Venous blood specimen / Unknown Venipuncture / Unknown 06/10/2025 7:36 AM EDT 06/10/2025 11:35 AM EDT us Yo Chambers MD LAB BLOOD ORDERABLES Final Result [facility] [address] [place] [address], [place] [phone] * (ABNORMAL) Prothrombin time with INR (06/10/2025 7:36 AM EDT) Protime 16.8(H) 10.6 - 13.9 sec LAB COAGULATION METHOD 06/10/2025 12:11 PM EDT [facility] INR 1.4 LAB COAGULATION METHOD 06/10/2025 12:11 PM EDT [facility] Blood Venous blood specimen / Unknown Venipuncture / Unknown 06/10/2025 7:36 AM EDT 06/10/2025 11:35 AM EDT Yo Chambers MD LAB BLOOD ORDERABLES Final Result [facility] [address] [place] [address], documented in this encounter Visit Diagnoses Diagnosis Unspecified atrial fibrillation (CMS/HCC V24, CMS/HCC V28) Essential (primary) hypertension Unspecified essential hypertension Hyperlipidemia, unspecified documented in this encounter Care Teams Gas Analyst Relationship Specialty Start Date End Date Yo Chambers MD [address] [place] [address] PCP - General 05/19/21 documented as of this encounter
--- OUTSIDE RECORDS SUMMARY | 2025-06-24 17:02 | XMS_ITS | Encounter Summary ---
Author Organization [facility] Address [address] [place] [address] Care Team Providers Care Product Info Specialist Name Role Phone Yo Chambers MD Primary Care Provider +1- [phone] Encounter Details Date Type Department Care Team (Late st Contact Info) Description 05/24/2025 Lab Requisition [facility] - Main Lab [address] [place] [address] Yo Chambers MD [address] [place] [address] Unspecified atrial fibrillation (CMS/HCC V24, CMS/HCC V28) [...] Diagnosis Comments PROTHROMBIN TIME WITH INR Routine 05/27/2025 8:22 AM EDT Unspecified atrial fibrillation (CMS/HCC V24, CMS/HCC V28) documented in this encounter Results * (ABNORMAL) Prothrombin time with INR (05/27/2025 8:22 AM EDT) Protime 35.2(H) 10.6 - 13.9 sec LAB COAGULATION METHOD 05/27/2025 10:57 AM EDT [facility] INR 2.9 LAB COAGULATION METHOD 05/27/2025 10:[address] [facility] Blood Venous blood specimen / Unknown Venipuncture / Unknown 05/27/2025 8:22 AM EDT 05/27/2025 10:01 AM EDT us Yo Chambers MD LAB BLOOD ORDERABLES Final Result [facility] [address] [place] [address], documented in this encounter Visit Diagnoses Diagnosis Unspecified atrial fibrillation (CMS/HCC V24, CMS/HCC V28) documented in this encounter Care Teams Product Info Specialist Relationship Specialty Start Date End Date Yo Chambers MD [address] [place] [address] PCP - General 05/19/21 documented as of this encounter
--- OUTSIDE RECORDS SUMMARY | 2025-06-24 17:02 | XMS_ITS | Encounter Summary ---
Author Organization [facility] Address [address] [place] [address] Care Team Providers Care Chief Drafter Name Role Phone Yo Chambers MD Primary Care Provider +1- [phone] Encounter Details Date Type Department Care Team (Late st Contact Info) Description 08/03/2024 Lab Requisition [facility] - Main Lab [address] [place] [address] Yo Chambers MD [address] [place] [address] Unspecified atrial fibrillation (CMS/HCC V24, CMS/HCC V28) [...] LAB COAGULATION METHOD 08/06/2024 12:13 PM EST [facility] INR 1.7 LAB COAGULATION METHOD 08/06/2024 12:13 PM EST [facility] Blood Venous blood specimen / Unknown Venipuncture / Unknown 08/06/2024 6:06 AM EST 08/06/2024 11:41 AM EST Yo Chambers MD LAB BLOOD ORDERABLES Final Result [facility] [address] [place] [address], documented in this encounter Visit Diagnoses Diagnosis Unspecified atrial fibrillation (CMS/HCC V24, CMS/HCC V28) documented in this encounter Additional Health Concerns Infection Onset Date Last Indicated Resolved Time Influenza 10/07/2024 10/07/2024 10/31/2024 7:06 PM EDT Respiratory Rule-Out 10/08/2024 10/07/2024 025 2:58 PM EST documented as of this encounter Care Teams Chief Drafter Relationship Specialty Start Date End Date Yo Chambers MD [address] [place] [address] PCP - General 05/19/21 documented as of this encounter
--- OUTSIDE RECORDS SUMMARY | 2025-06-24 17:02 | XMS_ITS | Encounter Summary ---
Author Organization [facility] Address [address] [place] [address] Care Team Providers Care Dry Cell And Battery Assembler Name Role Phone Yo Chambers MD Primary Care Provider +1- [phone] Encounter Details Date Type Department Care Team (Late st Contact Info) Description 05/05/2025 Lab Requisition [facility] - Main Lab [address] [place] [address] Yo Chambers MD [address] [place] [address] Unspecified atrial fibrillation (CMS/HCC V24, CMS/HCC V28) [...] Diagnosis Comments PROTHROMBIN TIME WITH INR Routine 05/06/2025 6:54 AM EDT Unspecified atrial fibrillation (CMS/HCC V24, CMS/HCC V28) documented in this encounter Results * (ABNORMAL) Prothrombin time with INR (05/06/2025 6:54 AM EDT) Protime 17.9(H) 10.6 - 13.9 sec LAB COAGULATION METHOD 05/06/2025 11:00 AM EDT [facility] INR 1.4 LAB COAGULATION METHOD 05/06/2025 11:00 AM EDT [facility] Blood Venous blood specimen / Unknown Venipuncture / Unknown 05/06/2025 6:54 AM EDT 05/06/2025 10:36 AM EDT us Yo Chambers MD LAB BLOOD ORDERABLES Final Result [facility] [address] [place] [address], documented in this encounter Visit Diagnoses Diagnosis Unspecified atrial fibrillation (CMS/HCC V24, CMS/HCC V28) documented in this encounter Care Teams Dry Cell And Battery Assembler Relationship Specialty Start Date End Date Yo Chambers MD [address] [place] [address] PCP - General 05/19/21 documented as of this encounter
--- OUTSIDE RECORDS SUMMARY | 2025-06-24 17:02 | XMS_ITS | Encounter Summary ---
Author Organization [facility] Address [address] [place] [address] Care Team Providers Care Aircraft Painter Name Role Phone Yo Chambers MD Primary Care Provider +1- [phone] Encounter Details Date Type Department Care Team (Late st Contact Info) Description 08/24/2024 Lab Requisition [facility] - Main Lab [address] [place] [address] Yo Chambers MD [address] [place] [address] Unspecified atrial fibrillation (CMS/HCC V24, CMS/HCC V28) [...] LAB COAGULATION METHOD 08/27/2024 11:37 AM EST [facility] INR 1.5 LAB COAGULATION METHOD 08/27/2024 11:37 AM EST [facility] Blood Venous blood specimen / Unknown Venipuncture / Unknown 08/27/2024 7:00 AM EST 08/27/2024 10:49 AM EST Yo Chambers MD LAB BLOOD ORDERABLES Final Result [facility] [address] [place] [address], documented in this encounter Visit Diagnoses Diagnosis Unspecified atrial fibrillation (CMS/HCC V24, CMS/HCC V28) documented in this encounter Additional Health Concerns Infection Onset Date Last Indicated Resolved Time Influenza 10/07/2024 10/07/2024 10/31/2024 7:06 PM EDT Respiratory Rule-Out 10/08/2024 10/07/2024 025 2:58 PM EST documented as of this encounter Care Teams Aircraft Painter Relationship Specialty Start Date End Date Yo Chambers MD [address] [place] [address] PCP - General 05/19/21 documented as of this encounter
--- OUTSIDE RECORDS SUMMARY | 2025-06-24 17:02 | XMS_ITS | Encounter Summary ---
Author Organization [facility] Address [address] [place] [address] Care Team Providers Care Cartography Professor Name Role Phone Yo Chambers MD Primary Care Provider +1- [phone] Encounter Details Date Type Department Care Team (Late st Contact Info) Description 06/23/[address] [facility] - Main Lab [address] [facility] [place] [address] Yo Chambers MD [address] [place] [address] Chronic atrial fibrillation, unspecified (CMS/HCC V24, CMS/HCC [...] Travel phlebotomy fee (06/25/2024 5:18 AM EST) [facility] LONG TERM TRAVEL PHLEBOTOMY FEE Completed 06/25/2024 10:01 AM EST [facility] Blood Venous blood specimen / Unknown 06/25/2024 5:18 AM EST 06/25/2024 9:37 AM EST Yo Chambers MD LAB BLOOD ORDERABLES Final Result [facility] [address] [place] [address], [place] [phone] * (ABNORMAL) Prothrombin time with INR (06/25/2024 5:18 AM EST) [facility] Protime 30.0(H) 10.6 - 13.9 sec LAB COAGULATION METHOD 06/25/2024 11:07 AM EST [facility] INR 2.4 LAB COAGULATION METHOD 06/25/2024 11:07 AM EST [facility] Blood Venous blood specimen / Unknown Venipuncture / Unknown 06/25/2024 5:18 AM EST 06/25/2024 9:37 AM EST Yo Chambers MD LAB BLOOD ORDERABLES Final Result Performing Organization Address City/[facility]/ZIP Co de Phone Number [facility] [address] [place] [address], [place] [phone] documented in this encounter Visit Diagnoses Diagnosis Chronic atrial fibrillation, unspecified (CMS/HCC V24, CMS/HCC V28) Unspecified atrial fibrillation (CMS/HCC V24, CMS/HCC V28) documented in this encounter Additional Health Concerns Infection Onset Date Last Indicated Resolved Time Influenza 10/07/2024 10/07/2024 10/31/2024 7:06 PM EDT Respiratory Rule-Out 10/08/2024 10/07/2024 025 2:58 PM EST documented as of this encounter Care Teams Cartography Professor Relationship Specialty Start Date End Date Yo Chambers MD [address] [place] [address] PCP - General 05/19/21 documented as of this encounter
--- OUTSIDE RECORDS SUMMARY | 2025-06-24 17:02 | XMS_ITS | Encounter Summary ---
Author Organization [facility] Address [address] [place] [address] Care Team Providers Care Bake Room Worker Name Role Phone Yo Chambers MD Primary Care Provider +1- [phone] Encounter Details Date Type Department Care Team (Late st Contact Info) Description 03/23/2025 Lab Requisition [facility] - Main Lab [address] [place] [address] Yo Chambers MD [address] [place] [address] Unspecified atrial fibrillation (CMS/HCC V24, CMS/HCC V28) [...] Diagnosis Comments PROTHROMBIN TIME WITH INR Routine 03/25/2025 6:00 AM EDT Unspecified atrial fibrillation (CMS/HCC V24, CMS/HCC V28) documented in this encounter Results * (ABNORMAL) Prothrombin time with INR (03/25/2025 6:00 AM EDT) Protime 21.2(H) 10.6 - 13.9 sec LAB COAGULATION METHOD 03/25/2025 11:22 AM EDT [facility] INR 1.7 LAB COAGULATION METHOD 03/25/2025 11:22 AM EDT [facility] Blood Venous blood specimen / Unknown Venipuncture / Unknown 03/25/2025 6:00 AM EDT 03/25/2025 10:19 AM EDT us Yo Chambers MD LAB BLOOD ORDERABLES Final Result [facility] [address] [place] [address], documented in this encounter Visit Diagnoses Diagnosis Unspecified atrial fibrillation (CMS/HCC V24, CMS/HCC V28) documented in this encounter Care Teams Bake Room Worker Relationship Specialty Start Date End Date Yo Chambers MD [address] [place] [address] PCP - General 05/19/21 documented as of this encounter
--- OUTSIDE RECORDS SUMMARY | 2025-06-24 17:02 | XMS_ITS | Encounter Summary ---
Author Organization [facility] Address [address] [place] [address] Care Team Providers Care Director School Of Nursing Name Role Phone Yo Chambers MD Primary Care Provider +1- [phone] Encounter Details Date Type Department Care Team (Late st Contact Info) Description 05/10/2025 Lab Requisition [facility] - Main Lab [address] [place] [address] Yo Chambers MD [address] [place] [address] Unspecified atrial fibrillation (CMS/HCC V24, CMS/HCC V28) [...] Diagnosis Comments PROTHROMBIN TIME WITH INR Routine 05/13/2025 7:38 AM EDT Unspecified atrial fibrillation (CMS/HCC V24, CMS/HCC V28) documented in this encounter Results * (ABNORMAL) Prothrombin time with INR (05/13/2025 7:38 AM EDT) Protime 24.5(H) 10.6 - 13.9 sec LAB COAGULATION METHOD 05/13/2025 11:[address] [facility] INR 2.0 LAB COAGULATION METHOD 05/13/2025 11:42 AM EDT [facility] Blood Venous blood specimen / Unknown Venipuncture / Unknown 05/13/2025 7:38 AM EDT 05/13/2025 11:22 AM EDT us Yo Chambers MD LAB BLOOD ORDERABLES Final Result [facility] [address] [place] [address], documented in this encounter Visit Diagnoses Diagnosis Unspecified atrial fibrillation (CMS/HCC V24, CMS/HCC V28) documented in this encounter Care Teams Director School Of Nursing Relationship Specialty Start Date End Date Yo Chambers MD [address] [place] [address] PCP - General 05/19/21 documented as of this encounter
--- OUTSIDE RECORDS SUMMARY | 2025-06-24 17:02 | XMS_ITS | Encounter Summary ---
Author Organization [facility] Address [address] [place] [address] Care Team Providers Care Software Integrator Name Role Phone Yo Chambers MD Primary Care Provider +1- [phone] Encounter Details Date Type Department Care Team (Late st Contact Info) Description 06/10/2025 Lab Requisition [facility] - Main Lab [address] [place] [address] Yo Chambers MD [address] [place] [address] Chronic kidney disease, unspecified; Unspecified atrial fibrillation (CMS/HCC V24, CMS/HCC V28) [...] as of this encounter Visit Diagnoses Diagnosis Chronic kidney disease, unspecified Unspecified atrial fibrillation (CMS/HCC V24, CMS/HCC V28) documented in this encounter Care Teams Software Integrator Relationship Specialty Start Date End Date Yo Chambers MD [address] [place] [address] PCP - General 05/19/21 documented as of this encounter
--- OUTSIDE RECORDS SUMMARY | 2025-06-24 17:02 | XMS_ITS | Encounter Summary ---
Author Organization [facility] Address [address] [place] [address] Care Team Providers Care Commercial Print Salesman Name Role Phone Yo Chambers MD Primary Care Provider +1- [phone] Encounter Details Date Type Department Care Team (Late st Contact Info) Description 07/21/2024 Lab Requisition [facility] - Main Lab [address] [facility] [place] [address] Yo Chambers MD [address] [place] [address] Chronic atrial fibrillation, unspecified (CMS/HCC V24, CMS/HCC [...] LAB COAGULATION METHOD 07/23/2024 12:11 PM EST [facility] INR 2.0 LAB COAGULATION METHOD 07/23/2024 12:11 PM EST [facility] Blood Venous blood specimen / Unknown Venipuncture / Unknown 07/23/2024 6:45 AM EST 07/23/2024 10:59 AM EST us Yo Chambers MD LAB BLOOD ORDERABLES Final Result [facility] [address] [place] [address], documented in this encounter Visit Diagnoses Diagnosis Chronic atrial fibrillation, unspecified (CMS/HCC V24, CMS/HCC V28) Unspecified atrial fibrillation (CMS/HCC V24, CMS/HCC V28) documented in this encounter Additional Health Concerns Infection Onset Date Last Indicated Resolved Time Influenza 10/07/2024 10/07/2024 10/31/2024 7:06 PM EDT Respiratory Rule-Out 10/08/2024 10/07/2024 025 2:58 PM EST documented as of this encounter Care Teams Commercial Print Salesman Relationship Specialty Start Date End Date Yo Chambers MD [address] [place] [address] PCP - General 05/19/21 documented as of this encounter
--- OUTSIDE RECORDS SUMMARY | 2025-06-24 17:02 | XMS_ITS | Encounter Summary ---
Author Organization [facility] Address [address] [place] [address] Care Team Providers Care Crm Dynamics Developer Name Role Phone Yo Chambers MD Primary Care Provider +1- [phone] Encounter Details Date Type Department Care Team (Late st Contact Info) Description 08/11/2024 Lab Requisition [facility] - Main Lab [address] [place] [address] Yo Chambers MD [address] [place] [address] Unspecified atrial fibrillation (CMS/HCC V24, CMS/HCC V28) [...] LAB COAGULATION METHOD 08/13/2024 12:17 PM EST [facility] INR 1.9 LAB COAGULATION METHOD 08/13/2024 12:17 PM EST [facility] Blood Venous blood specimen / Unknown Venipuncture / Unknown 08/13/2024 6:11 AM EST 08/13/2024 11:54 AM EST Yo Chambers MD LAB BLOOD ORDERABLES Final Result [facility] [address] [place] [address], documented in this encounter Visit Diagnoses Diagnosis Unspecified atrial fibrillation (CMS/HCC V24, CMS/HCC V28) documented in this encounter Additional Health Concerns Infection Onset Date Last Indicated Resolved Time Influenza 10/07/2024 10/07/2024 10/31/2024 7:06 PM EDT Respiratory Rule-Out 10/08/2024 10/07/2024 025 2:58 PM EST documented as of this encounter Care Teams Crm Dynamics Developer Relationship Specialty Start Date End Date Yo Chambers MD [address] [place] [address] PCP - General 05/19/21 documented as of this encounter
--- OUTSIDE RECORDS SUMMARY | 2025-06-24 17:02 | XMS_ITS | Encounter Summary ---
Author Organization [facility] Address [address] [place] [address] Care Team Providers Care Segmental Paving Supervisor Name Role Phone Yo Chambers MD Primary Care Provider +1- [phone] Encounter Details Date Type Department Care Team (Late st Contact Info) Description 06/29/[address] [facility] - Main Lab [address] [facility] [address] Yo Chambers MD [address] [place], [place] [phone] Unspecified atrial fibrillation (CMS/HCC V24, CMS/HCC V28) [...] documented as of this encounter Care Teams Segmental Paving Supervisor Relationship Specialty Start Date End Date Yo Chambers MD [address] [place] [address] PCP - General 05/19/21 documented as of this encounter
--- OUTSIDE RECORDS SUMMARY | 2025-06-24 17:02 | XMS_ITS | Encounter Summary ---
Author Organization [facility] Address [address] [place] [address] Care Team Providers Care Quality Head Name Role Phone Yo Chambers MD Primary Care Provider +1- [phone] Encounter Details Date Type Department Care Team (Late st Contact Info) Description 05/18/2025 Lab Requisition [facility] - Main Lab [address] [place] [address] Yo Chambers MD [address] [place] [address] Unspecified atrial fibrillation (CMS/HCC V24, CMS/HCC V28) [...] Diagnosis Comments PROTHROMBIN TIME WITH INR Routine 05/20/2025 9:26 AM EDT Unspecified atrial fibrillation (CMS/HCC V24, CMS/HCC V28) documented in this encounter Results * (ABNORMAL) Prothrombin time with INR (05/20/2025 9:26 AM EDT) Protime 26.2(H) 10.6 - 13.9 sec LAB COAGULATION METHOD 05/20/2025 11:33 AM EDT [facility] INR 2.1 LAB COAGULATION METHOD 05/20/2025 11:33 AM EDT [facility] LAB Blood Venous blood specimen / Unknown Venipuncture / Unknown 05/20/2025 9:26 AM EDT 05/20/2025 10:05 AM EDT us Yo Chambers MD LAB BLOOD ORDERABLES Final Result [facility] [address] [place] [address], documented in this encounter Visit Diagnoses Diagnosis Unspecified atrial fibrillation (CMS/HCC V24, CMS/HCC V28) documented in this encounter Care Teams Quality Head Relationship Specialty Start Date End Date Yo Chambers MD [address] [place] [address] PCP - General 05/19/21 documented as of this encounter
--- OUTSIDE RECORDS SUMMARY | 2025-06-24 17:02 | XMS_ITS | Encounter Summary ---
Author Organization [facility] Address [address] [place] [address] Care Team Providers Care Phonograph Needle Tip Maker Name Role Phone Yo Chambers MD Primary Care Provider +1- [phone] Encounter Details Date Type Department Care Team (Late st Contact Info) Description 06/14/2025 Lab Requisition [facility] - Main Lab [address] [place] [address] Yo Chambers MD [address] [place] [address] Unspecified atrial fibrillation (CMS/HCC V24, CMS/HCC V28) [...] Diagnosis Comments PROTHROMBIN TIME WITH INR Routine 06/17/2025 10:47 AM EDT Unspecified atrial fibrillation (CMS/HCC V24, CMS/HCC V28) documented in this encounter Results * (ABNORMAL) Prothrombin time with INR (06/17/2025 10:47 AM EDT) Protime 27.3(H) 10.6 - 13.9 sec LAB COAGULATION METHOD 06/17/2025 12:31 PM EDT [facility] ([facility] LAB INR 2.2 LAB COAGULATION METHOD 06/17/2025 12:31 PM EDT [facility] LAB Blood Venous blood specimen / Unknown Venipuncture / Unknown 06/17/2025 10:47 AM EDT 06/17/2025 11:19 AM EDT us Yo Chambers MD LAB BLOOD ORDERABLES Final Result [facility] LAB [address] [place] [address], documented in this encounter Visit Diagnoses Diagnosis Unspecified atrial fibrillation (CMS/HCC V24, CMS/HCC V28) documented in this encounter Care Teams Phonograph Needle Tip Maker Relationship Specialty Start Date End Date Yo Chambers MD [address] [place] [address] PCP - General 05/19/21 documented as of this encounter
--- OUTSIDE RECORDS SUMMARY | 2025-06-24 17:02 | XMS_ITS | Encounter Summary ---
Author Organization [facility] Address [address] [place] [address] Care Team Providers Care Ground Support Equipment Assembler Name Role Phone Yo Chambers MD Primary Care Provider +1- [phone] Encounter Details Date Type Department Care Team (Late st Contact Info) Description 06/21/2025 Lab Requisition [facility] - Main Lab [address] [place] [address] Yo Chambers MD [address] [place] [address] Unspecified atrial fibrillation (CMS/HCC V24, CMS/HCC V28) [...] Diagnosis Comments PROTHROMBIN TIME WITH INR Routine 06/24/2025 8:17 AM EST Unspecified atrial fibrillation (CMS/HCC V24, CMS/HCC V28) documented in this encounter Results * (ABNORMAL) Prothrombin time with INR (06/24/2025 8:17 AM EST) Protime 16.7(H) 10.6 - 13.9 sec LAB COAGULATION METHOD 06/24/2025 12:32 PM EST [facility] INR 1.3 LAB COAGULATION METHOD 06/24/2025 12:32 PM EST [facility] LAB Blood Venous blood specimen / Unknown Venipuncture / Unknown 06/24/2025 8:17 AM EST 06/24/2025 11:14 AM EST Yo Chambers MD LAB BLOOD ORDERABLES Final Result [facility] [address] [place] [address], documented in this encounter Visit Diagnoses Diagnosis Unspecified atrial fibrillation (CMS/HCC V24, CMS/HCC V28) documented in this encounter Care Teams Ground Support Equipment Assembler Relationship Specialty Start Date End Date Yo Chambers MD [address] [place] [address] PCP - General 05/19/21 documented as of this encounter
--- OUTSIDE RECORDS SUMMARY | 2025-06-24 17:02 | XMS_ITS | Encounter Summary ---
Author Organization [facility] Address [address] [place] [address] Care Team Providers Care Insole Bottom Filler Name Role Phone Yo Chambers MD Primary Care Provider +1- [phone] Encounter Details Date Type Department Care Team (Late st Contact Info) Description 07/13/[address] [facility] - Main Lab [address] [place] [address] Yo Chambers MD [address] [place] [address] Unspecified atrial fibrillation (CMS/HCC V24, CMS/HCC V28) [...] LAB COAGULATION METHOD 07/16/2024 12:[address] [facility] LAB INR 2.0 LAB COAGULATION METHOD 07/16/2024 12:[address] [facility] LAB Blood Venous blood specimen / Unknown Venipuncture / Unknown 07/16/2024 6:58 AM EST 07/16/2024 11:16 AM EST Yo Chambers MD LAB BLOOD ORDERABLES Final Result [facility] [address] [place] [address], documented in this encounter Visit Diagnoses Diagnosis Unspecified atrial fibrillation (CMS/HCC V24, CMS/HCC V28) documented in this encounter Additional Health Concerns Infection Onset Date Last Indicated Resolved Time Influenza 10/07/2024 10/07/2024 10/31/2024 7:06 PM EDT Respiratory Rule-Out 10/08/2024 10/07/2024 025 2:58 PM EST documented as of this encounter Care Teams Insole Bottom Filler Relationship Specialty Start Date End Date Yo Chambers MD [address] [place] [address] PCP - General 05/19/21 documented as of this encounter
--- OUTSIDE RECORDS SUMMARY | 2025-06-24 17:02 | XMS_ITS | Encounter Summary ---
Author Organization [facility] Address [address] [place] [address] Care Team Providers Care Coil Winding Supervisor Name Role Phone Yo Chambers MD Primary Care Provider +1- [phone] Encounter Details Date Type Department Care Team (Late st Contact Info) Description 09/12/2024 Lab Requisition [facility] - Main Lab [address] [place] [address] Yo Chambers MD [address] [place] [address] Unspecified atrial fibrillation (CMS/HCC V24, CMS/HCC V28) [...] LAB COAGULATION METHOD 09/13/2024 12:04 PM EST [facility] LAB INR 1.7 LAB COAGULATION METHOD 09/13/2024 12:04 PM EST [facility] LAB Blood Venous blood specimen / Unknown Venipuncture / Unknown 09/13/2024 7:23 AM EST 09/13/2024 10:57 AM EST Yo Chambers MD LAB BLOOD ORDERABLES Final Result [facility] [address] [place] [address], documented in this encounter Visit Diagnoses Diagnosis Unspecified atrial fibrillation (CMS/HCC V24, CMS/HCC V28) documented in this encounter Additional Health Concerns Infection Onset Date Last Indicated Resolved Time Influenza 10/07/2024 10/07/2024 10/31/2024 7:06 PM EDT Respiratory Rule-Out 10/08/2024 10/07/2024 025 2:58 PM EST documented as of this encounter Care Teams Coil Winding Supervisor Relationship Specialty Start Date End Date Yo Chambers MD [address] [place] [address] PCP - General 05/19/21 documented as of this encounter
--- OUTSIDE RECORDS SUMMARY | 2025-06-24 17:02 | XMS_ITS | Encounter Summary ---
Author Organization [facility] Address [address] [place] [address] Care Team Providers Care Metal Mockup Maker Name Role Phone Yo Chambers MD Primary Care Provider +1- [phone] Encounter Details Date Type Department Care Team (Late st Contact Info) Description 07/28/2024 Lab Requisition [facility] - Main Lab [address] [place] [address] Yo Chambers MD [address] [place] [address] Unspecified atrial fibrillation (CMS/HCC V24, CMS/HCC V28) [...] LAB COAGULATION METHOD 07/30/2024 11:11 AM EST [facility] LAB INR 2.1 LAB COAGULATION METHOD 07/30/2024 11:11 AM EST [facility] LAB Blood Venous blood specimen / Unknown Venipuncture / Unknown 07/30/2024 5:53 AM EST 07/30/2024 10:43 AM EST Yo Chambers MD LAB BLOOD ORDERABLES Final Result [facility] LAB [address] [place] [address], documented in this encounter Visit Diagnoses Diagnosis Unspecified atrial fibrillation (CMS/HCC V24, CMS/HCC V28) documented in this encounter Additional Health Concerns Infection Onset Date Last Indicated Resolved Time Influenza 10/07/2024 10/07/2024 10/31/2024 7:06 PM EDT Respiratory Rule-Out 10/08/2024 10/07/2024 025 2:58 PM EST documented as of this encounter Care Teams Metal Mockup Maker Relationship Specialty Start Date End Date Yo Chambers MD [address] [place] [address] PCP - General 05/19/21 documented as of this encounter
--- OUTSIDE RECORDS SUMMARY | 2025-06-24 17:02 | XMS_ITS | Encounter Summary ---
Author Organization [facility] Address [address] [place] [address] Care Team Providers Care Personal Development Educator Name Role Phone Yo Chambers MD Primary Care Provider +1- [phone] Encounter Details Date Type Department Care Team (Late st Contact Info) Description 09/08/2024 Lab Requisition [facility] - Main Lab [address] [place] [address] Yo Chambers MD [address] [place] [address] Unspecified atrial fibrillation (CMS/HCC V24, CMS/HCC V28) [...] LAB COAGULATION METHOD 09/10/2024 1:16 PM EST [facility] LAB INR 3.9 LAB COAGULATION METHOD 09/10/2024 1:16 PM EST [facility] LAB Blood Venous blood specimen / Unknown Venipuncture / Unknown 09/10/2024 7:46 AM EST 09/10/2024 12:11 PM EST Yo Chambers MD LAB BLOOD ORDERABLES Final Result [facility] [address] [place] [address], documented in this encounter Visit Diagnoses Diagnosis Unspecified atrial fibrillation (CMS/HCC V24, CMS/HCC V28) documented in this encounter Additional Health Concerns Infection Onset Date Last Indicated Resolved Time Influenza 10/07/2024 10/07/2024 10/31/2024 7:06 PM EDT Respiratory Rule-Out 10/08/2024 10/07/2024 025 2:58 PM EST documented as of this encounter Care Teams Personal Development Educator Relationship Specialty Start Date End Date Yo Chambers MD [address] [place] [address] PCP - General 05/19/21 documented as of this encounter
--- OUTSIDE RECORDS SUMMARY | 2025-06-24 17:02 | XMS_ITS | Encounter Summary ---
Author Organization [facility] Address [address] [place] [address] Care Team Providers Care Commercial Loan Manager Name Role Phone Yo Chambers MD Primary Care Provider +1- [phone] Encounter Details Date Type Department Care Team (Late st Contact Info) Description 06/20/2025 Lab Requisition [facility] - Main Lab [address] [place] [address] Yo Chambers MD [address] [place] [address] computer terminal operator (current) use of anticoagulants Social History Tobacco Use Types Packs/Day Years [...] Diagnosis Comments PROTHROMBIN TIME WITH INR Routine 06/21/2025 5:16 AM EDT computer terminal operator (current) use of anticoagulants documented in this encounter Results * (ABNORMAL) Prothrombin time with INR (06/21/2025 5:16 AM EDT) Protime 23.8(H) 10.6 - 13.9 sec LAB COAGULATION METHOD 06/21/2025 7:59 AM EDT [facility] LAB INR 1.9 LAB COAGULATION METHOD 06/21/2025 7:59 AM EDT [facility] LAB Blood Venous blood specimen / Unknown Venipuncture / Unknown 06/21/2025 5:16 AM EDT 06/21/2025 7:44 AM EDT Yo Chambers MD LAB BLOOD ORDERABLES Final Result [facility] [address] [place] [address], documented in this encounter Visit Diagnoses Diagnosis computer terminal operator (current) use of anticoagulants Long-term (current) use of anticoagulants documented in this encounter Care Teams Commercial Loan Manager Relationship Specialty Start Date End Date Yo Chambers MD [address] [place] [address] PCP - General 05/19/21 documented as of this encounter
--- OUTSIDE RECORDS SUMMARY | 2025-06-24 17:02 | XMS_ITS | Encounter Summary ---
Author Organization [facility] Address [address] [place] [address] Care Team Providers Care Spooler Operator Automatic Name Role Phone Yo Chambers MD Primary Care Provider +1- [phone] Encounter Details Date Type Department Care Team (Late st Contact Info) Description 07/07/2024 Lab Requisition [facility] - Main Lab [address] [facility] [place] [address] Yo Chambers MD [address] [place] [address] Hyperlipidemia, unspecified; Chronic kidney disease, stage 3 [...] mcIU/mL LAB CHEMISTRY METHOD 07/09/2024 11:55 AM [facility] LAB Blood Venous blood specimen / Unknown Venipuncture / Unknown 07/09/2024 6:04 AM EST 07/09/2024 10:34 AM EST Yo Chambers MD LAB BLOOD ORDERABLES Final Result [facility] [address] [place] [address], * (ABNORMAL) Comprehensive metabolic panel (07/09/2024 6:04 AM EST) Sodium 143 133 - 145 mmol/L LAB CHEMISTRY METHOD 07/09/2024 1:06 PM [facility] Potassium 4.1 3.5 - 5.5 mmol/L LAB CHEMISTRY METHOD 07/09/2024 1:06 PM [facility] Chloride 110 96 - 110 mmol/L LAB CHEMISTRY METHOD 07/09/2024 1:06 PM [facility] CO2 23 21 - 32 mmol/L LAB CHEMISTRY METHOD 07/09/2024 1:06 PM [facility] Anion Gap 10 3 - 11 LAB CHEMISTRY METHOD 07/09/2024 1:06 PM [facility] Glucose 117(H) 70 - 100 mg/dL LAB CHEMISTRY METHOD 07/09/2024 1:06 PM [facility] BUN 11 5 - 25 mg/dL LAB CHEMISTRY METHOD 07/09/2024 1:06 PM [facility] Creatinine 0.95 0.50 - 1.10 mg/dL LAB CHEMISTRY METHOD 07/09/2024 1:06 PM [facility] eGFR 63 >=60 mL/min/1. 73m2 LAB CHEMISTRY METHOD 07/09/2024 1:06 PM [facility] Comment:Calculation based on the Chronic Kidney Disease Epidemiology Collaboration (CKD-EPI) equation refit without adjustment for race. BUN/Creatinine Ratio 11.6 LAB CHEMISTRY METHOD 07/09/2024 1:06 PM [facility] Calcium 8.7 8.5 - 10.5 mg/dL LAB CHEMISTRY METHOD 07/09/2024 1:06 PM [facility] AST (SGOT) 20 10 - 42 unit/L LAB CHEMISTRY METHOD 07/09/2024 1:06 PM [facility] ALT (SGPT) 27 10 - 60 unit/L LAB CHEMISTRY METHOD 07/09/2024 1:06 PM [facility] Alkaline Phosphatase 77 42 - 121 unit/L LAB CHEMISTRY METHOD 07/09/2024 1:06 PM [facility] Total Protein 5.6(L) 6.0 - 8.0 g/dL LAB CHEMISTRY METHOD 07/09/2024 1:06 PM [facility] Albumin 2.8(L) 3.2 - 5.0 g/dL LAB CHEMISTRY METHOD 07/09/2024 1:06 PM [facility] Total Bilirubin 0.3 0.0 - 1.4 mg/dL LAB CHEMISTRY METHOD 07/09/2024 1:06 PM [facility] Blood Venous blood specimen / Unknown Venipuncture / Unknown 07/09/2024 6:04 AM EST 07/09/2024 10:34 AM EST us Yo Chambers MD LAB BLOOD ORDERABLES Final Result [facility] [address] [place] [address], [place] [phone] * (ABNORMAL) Complete blood count (07/09/2024 6:04 AM EST) WBC 5.0 4.8 - 10.8 K/mcL LAB HEMETOLOGY METHOD 07/09/2024 11:27 AM [facility] RBC 3.60(L) 3.80 - 4.80 M/mcL LAB HEMETOLOGY METHOD 07/09/2024 11:27 AM [facility] Hemoglobin 11.4(L) 11.5 - 16.0 g/dL LAB HEMETOLOGY METHOD 07/09/2024 11:27 AM [facility] Hematocrit 35.4 35.0 - 47.0 % LAB HEMETOLOGY METHOD 07/09/2024 11:27 AM [facility] MCV 98.3(H) 79.0 - 98.0 FL LAB HEMETOLOGY METHOD 07/09/2024 11:27 AM [facility] MCH 31.7 27.0 - 32.0 pcg LAB HEMETOLOGY METHOD 07/09/2024 11:27 AM [facility] MCHC 32.2 32.0 - 37.0 g/dL LAB HEMETOLOGY METHOD 07/09/2024 11:27 AM [facility] RDW 14.6 11.0 - 15.0 % LAB HEMETOLOGY METHOD 07/09/2024 11:27 AM [facility] Platelets 228 130 - 400 K/mcL LAB HEMETOLOGY METHOD 07/09/2024 11:27 AM [facility] MPV 11.1(H) 7.0 - 11.0 FL LAB HEMETOLOGY METHOD 07/09/2024 11:27 AM EST [facility] NRBC 0.0 <1.0 % LAB HEMETOLOGY METHOD 07/09/2024 11:27 AM EST [facility] NRBC Absolute 0.00 <0.10 K/mcL LAB HEMETOLOGY METHOD 07/09/2024 11:27 AM EST [facility] Blood Venous blood specimen / Unknown Venipuncture / Unknown 07/09/2024 6:04 AM EST 07/09/2024 10:40 AM EST us Yo Chambers MD LAB BLOOD ORDERABLES Final Result Performing Organization Address City/[facility]/ZIP Co de Phone Number [facility] [address] [place] [address], [place] [phone] * (ABNORMAL) Prothrombin time with INR (07/09/2024 6:04 AM EST) Protime 18.6(H) 10.6 - 13.9 sec LAB COAGULATION METHOD 07/09/2024 11:32 AM EST [facility] INR 1.5 LAB COAGULATION METHOD 07/09/2024 11:32 AM EST [facility] Blood Venous blood specimen / Unknown Venipuncture / Unknown 07/09/2024 6:04 AM EST 07/09/2024 10:34 AM EST us Yo Chambers MD LAB BLOOD ORDERABLES Final Result [facility] [address] [place] [address], [place] [phone] documented in this encounter Visit Diagnoses Diagnosis Hyperlipidemia, unspecified Chronic kidney disease, stage 3 unspecified (CMS/HCC V24, CMS/HCC V28) Unspecified atrial fibrillation (CMS/HCC V24, CMS/HCC V28) documented in this encounter Additional Health Concerns Infection Onset Date Last Indicated Resolved Time Influenza 10/07/2024 10/07/2024 10/31/2024 7:06 PM EDT Respiratory Rule-Out 10/08/2024 10/07/2024 025 2:58 PM EST documented as of this encounter Care Teams Spooler Operator Automatic Relationship Specialty Start Date End Date Yo Chambers MD [address] [place] [address] PCP - General 05/19/21 documented as of this encounter
--- OUTSIDE RECORDS SUMMARY | 2025-06-24 17:02 | XMS_ITS | Encounter Summary ---
Author Organization [facility] Address [address] [place] [address] Care Team Providers Care Web Analyst Name Role Phone Yo Chambers MD Primary Care Provider +1- [phone] Encounter Details Date Type Department Care Team (Late st Contact Info) Description 06/29/2024 Lab Requisition [facility] - Main Lab [address] [place] [address] Yo Chambers MD [address] [place] [address] Unspecified atrial fibrillation (CMS/HCC V24, CMS/HCC V28) [...] LAB COAGULATION METHOD 07/02/2024 9:07 AM EST [facility] INR 2.2 LAB COAGULATION METHOD 07/02/2024 9:07 AM EST [facility] Blood Venous blood specimen / Unknown Venipuncture / Unknown 07/02/2024 4:56 AM EST 07/02/2024 8:11 AM EST Yo Chambers MD LAB BLOOD ORDERABLES Final Result [facility] [address] [place] [address], documented in this encounter Visit Diagnoses Diagnosis Unspecified atrial fibrillation (CMS/HCC V24, CMS/HCC V28) documented in this encounter Additional Health Concerns Infection Onset Date Last Indicated Resolved Time Influenza 10/07/2024 10/07/2024 10/31/2024 7:06 PM EDT Respiratory Rule-Out 10/08/2024 10/07/2024 025 2:58 PM EST documented as of this encounter Care Teams Web Analyst Relationship Specialty Start Date End Date Yo Chambers MD [address] [place] [address] PCP - General 05/19/21 documented as of this encounter
--- OUTSIDE RECORDS SUMMARY | 2025-06-24 17:02 | XMS_ITS | Clinical Summary ---
Author Organization [address] Address [address] [place] [address] Phone Care Team Providers Care Electric Motor Repair Supervisor Name Role Phone Yo Chambers MD Primary Care Provider +1- [phone] Allergies No known active allergies Medications atorvastatin (LIPITOR) 80 mg tablet Take 1 tablet (80 mg total) by mouth 1 (one) time each day. 9 Active aspirin 81 mg EC tablet Take 1 tablet (81 mg total) by mouth 1 (one) time each day. 4 Active albuterol 2.5 mg /3 mL (0.083 %) nebulizer solution 5 Active MAGNESIUM CITRATE ORAL Take 150 mL by mouth. Active bisacodyL (DULCOLAX) 5 mg EC tablet Take 1 tablet (5 mg total) by mouth 1 (one) time each day if needed. Active calcium carbonate (TUMS) 500 mg (200 mg elemental calcium) chewable tablet Chew 1 tablet (500 mg total) every 4 (four) hours. Active cholecalciferol (VITAMIN D3) 1,250 mcg (50,000 unit) tablet Take by mouth. Active gabapentin (NEURONTIN) 400 mg capsule Take 1 capsule (400 mg total) by mouth every 8 (eight) hours if needed. Active lactulose (CHRONULAC) solution Take 30 mL (20 g total) by mouth 1 (one) time each day if needed. Active metoprolol tartrate (LOPRESSOR) 25 mg tablet Take 0.5 tablets (12.5 mg total) by mouth 2 (two) times a day. Active sodium phosphates (Fleet Enema Extra) 19-7 gram/197 mL enema Insert into the rectum. Active warfarin (COUMADIN) 2.5 mg tablet Take 1 tablet (2.5 mg total) by mouth. Active warfarin (COUMADIN) 3 mg tablet Take 1 tablet (3 mg total) by mouth 1 (one) time each day. Active guaifenesin/dextr omethorphan (DEXTROMETHORPHAN -GUAIFENESIN PO) Take 20 mL by mouth every 4 (four) hours if needed. Active warfarin (COUMADIN) 1 mg tablet Take 1 tablet (1 mg total) by mouth 1 (one) time each day with dinner. Active polyethylene glycol (MIRALAX) 17 gram packet Take 17 g by mouth 1 (one) time each day. Active guaiFENesin (ROBITUSSIN) 100 mg/5 mL liquid Take 10 mL (200 mg total) by mouth every 4 (four) hours if needed for cough. Active vit C,R-Xv-mjezj-lute in-zeaxan ([facility] AREDS-2) 250-90-40-1 mg capsule Take 1 capsule by mouth 2 (two) times a day. Active nitroglycerin (NITROSTAT) 0.4 mg SL tabletIndications :Coronary artery disease, unspecified vessel or lesion type, unspecified whether angina present, unspecified whether umatilla tribe or transplanted heart Place 1 tablet (0.4 mg total) under the tongue every 5 (five) minutes if needed for chest pain. 25 tablet 3 5 Active oseltamivir (TAMIFLU) 75 mg capsule 5 06/24/20 25 Discontinu ed(Therapy completed) nitroglycerin (NITROSTAT) 0.4 mg SL tabletIndications :Coronary artery disease, unspecified vessel or lesion type, unspecified whether angina present, unspecified whether [place] tribe or transplanted heart Place 1 tablet (0.4 mg total) under the tongue every 5 (five) minutes if needed for chest pain. 25 tablet 3 5 06/24/20 25 Discontinu ed(Reorder ) Active Problems Problem Noted Date Diagnosed Date Permanent atrial fibrillation (CMS/HCC V24, CMS/ HCC V28) 12/21/2024 Assessment & Plan (06/24/2025 2:46 PM EST): Patient has a history of atrial fibrillation and remains on warfarin for anticoagulation and metoprolol for rate control. No issues with heart rate at this time. Assessment & Plan (12/21/2024 5:11 PM EDT): Patient with atrial fibrillation. Rate controlled anticoagulated with warfarin no bleeding or bruising issues. She understands need to discontinue anticoagulation for any blood producing procedure Coronary artery disease invo lving umatilla tribe coronary artery of umatilla tribe heart without angina pectoris 12/21/2024 Assessment & Plan (06/24/2025 2:46 PM EST): Patient has history of coronary artery disease [...] heart healthy lifestyle which includes eating a low- fat low-salt diet, getting regular exercise, maintaining a healthy weight, not smoking, and following up with routine medical care. Refill of her sublingual nitroglycerin sent to the [facility] pharmacy. Assessment & Plan (12/21/2024 5:11 PM EDT): Remote history of arthroscopic coronary disease. Asymptomatic at this time. Patient has good lipid control and blood pressure is well-managed Peripheral edema 12/21/2024 Assessment & Plan (06/24/2025 2:46 PM EST): Patient has history of peripheral edema however she does not present with any clinical symptoms of heart failure at this time. Her leg edema seems to be minimal at this point. Assessment & Plan (12/21/2024 5:11 PM EDT): Patient has chronic lower extremity edema most likely due to venous insufficiency. Patient is followed by vascular surgery edema still present she does have some new wraps and socks coming. There is no evidence of wound formation at the present time. Encounters Date Type Department Care Team Description 06/24/2025 2:10 PM EST Office Visit [facility] [address] [place] [address] Allyson Estrada NP Coronary artery disease involving umatilla tribe coronary artery of umatilla tribe heart without angina pectoris (Primary Dx); Permanent atrial fibrillation ([facility] V24, CMS/HCC V28); Peripheral edema; Coronary artery disease, unspecified vessel or lesion type, unspecified whether angina present, unspecified whether umatilla tribe or transplanted heart 06/21/2025 Lab Requisition [facility] [address] [place] [phone] Yo Chambers MD Unspecified atrial fibrillation (CMS/HCC V24, CMS/HCC V28) 06/20/2025 Lab Requisition [facility] [address] [place] [phone] Yo Chambers MD half-way (current) use of anticoagulants 06/14/2025 Lab Requisition [facility] [address] [place] [phone] Yo Chambers MD Unspecified atrial fibrillation ([facility]/HCC V24, CMS/HCC V28) 06/10/2025 Lab Requisition [facility] [address] [place] [phone] Yo Chambers MD Chronic kidney disease, unspecified; Unspecified atrial fibrillation ([facility]/HCC V24, [facility]/HCC V28) 06/09/2025 Lab Requisition [facility] [address] [place] [phone] Yo Chambers MD Unspecified atrial fibrillation (CMS/HCC V24, CMS/HCC V28); Essential (primary) hypertension; Hyperlipidemia, unspecified 05/31/2025 Lab Requisition [facility] [address] [place] [phone] Yo Chambers MD Unspecified atrial fibrillation (CMS/HCC V24, CMS/HCC V28) 05/27/2025 Telephone [facility] [address] [place] [address] Quang Barrios MD 05/24/2025 Lab Requisition [facility] Lab [address] [place] [phone] Yo Chambers MD Unspecified atrial fibrillation (CMS/HCC V24, CMS/HCC V28) 05/18/2025 Lab Requisition [facility] [address] [place] [phone] Yo Chambers MD Unspecified atrial fibrillation ([facility]/HCC V24, CMS/HCC V28) 05/10/2025 Lab Requisition [facility] [address] [place] [phone] Yo Chambers MD Unspecified atrial fibrillation ([facility]/HCC V24, [facility]/HCC V28) 05/05/2025 Lab Requisition [facility] [address] [place] [phone] Yo Chambers MD Unspecified atrial fibrillation ([facility]/HCC V24, CMS/HCC V28) 04/19/2025 Lab Requisition [facility] [address] [place] [phone] Yo Chambers MD Unspecified atrial fibrillation ([facility]/HCC V24, CMS/HCC V28) 04/06/2025 Lab Requisition [facility] [address] [place] [address] Yo Chambers MD Unspecified atrial fibrillation (CMS/HCC V24, [facility]/HCC V28) 03/23/2025 Lab Requisition [facility] Lab [address] [place] [address] Yo Chambers MD Unspecified atrial fibrillation ([facility] V24, [facility] V28) from Last 3 Months [...] Mass Index 42.91 06/24/2025 2:15 PM EST Plan of Treatment Health Maintenance Due Date Last Done Comments Breast Cancer Screening 1950 Colorectal Cancer Screening: Colonoscopy 1950 Pneumococcal Vaccine: 50+ Years (1 of 2 - PCV) 1970 RSV Immunization Adult Patients (1 - Risk 50-74 years 1-dose series) 2001 Zoster Vaccines (1 of 2) 2001 DTaP,Tdap,and Td Vaccines (2 - Tdap) 07/28/2021 07/28/2011 Falls Risk Assessment 07/31/2022 Hepatitis C Screening 07/31/2022 Medicare Annual Wellness Visit 07/31/2022 Osteoporosis Screening (Bone Density Screening) 07/31/2022 Social Influencers of Health Screening 07/31/2022 Depression Screening 08/22/2024 COVID-19 Vaccine ( season) 2025 05/20/2021, 09/21/2020, 08/31/2020 Influenza Vaccine (#1) 2025 3, 04/13/2012, 05/06/2011 Hypertension/CHF/CAD Annual BMP Blood Test 06/10/2026 06/10/2025, 03/11/2025, 02/11/2025, Additional history exists Cholesterol Screening (Lipid Panel) 06/10/2030 06/10/2025, 03/11/2025, 02/11/2025, Additional history exists HIB Vaccines Aged Out No longer eligi [...] 20 months Aged Out No longer eligible based on patient's age to complete this topic Varicella Vaccines Aged Out No longer eligible based on patient's age to complete this topic Procedures Procedure Name Priority Date/Time Associated Diagnosis Comments PROTHROMBIN TIME WITH INR Routine 06/24/2025 8:17 AM EST Unspecified atrial fibrillation (CMS/HCC V24, CMS/HCC V28) PROTHROMBIN TIME WITH INR Routine 06/21/2025 5:16 AM EDT half-way (current) use of anticoagulants PROTHROMBIN TIME WITH INR Routine 06/17/2025 10:47 AM EDT Unspecified atrial fibrillation (CMS/HCC V24, CMS/HCC V28) LIPID PANEL WITH REFLEX TO DIRECT LDL [...] Hyperlipidemia, unspecified PROTHROMBIN TIME WITH INR Routine 06/03/2025 9:28 AM EDT Unspecified atrial fibrillation (CMS/HCC V24, CMS/HCC V28) PROTHROMBIN TIME WITH INR Routine 05/27/2025 8:22 AM EDT Unspecified atrial fibrillation (CMS/HCC V24, CMS/HCC V28) PROTHROMBIN TIME WITH INR Routine 05/20/2025 9:26 AM EDT Unspecified atrial fibrillation (CMS/HCC V24, CMS/HCC V28) PROTHROMBIN TIME WITH INR Routine 05/13/2025 7:38 AM EDT Unspecified atrial fibrillation (CMS/HCC V24, CMS/HCC V28) PROTHROMBIN TIME WITH INR Routine 05/06/2025 6:54 AM EDT Unspecified atrial fibrillation (CMS/HCC V24, CMS/HCC V28) PROTHROMBIN TIME WITH INR Routine 04/23/2025 7:51 AM EDT Unspecified atrial fibrillation (CMS/HCC V24, CMS/HCC V28) PROTHROMBIN TIME WITH INR Routine 04/08/2025 6:36 AM EDT Unspecified atrial fibrillation (CMS/HCC V24, CMS/HCC V28) PROTHROMBIN TIME WITH INR Routine 03/25/2025 6:00 AM EDT Unspecified atrial fibrillation (CMS/HCC V24, CMS/HCC V28) from Last 3 Months Results * (ABNORMAL) Prothrombin time with INR (06/24/2025 8:17 AM EST) Only the most recent of12 resultswithin the time period is included. [facility] Protime 16.7(H) 10.6 - 13.9 sec LAB COAGULATION METHOD 06/24/2025 12:[address] [facility] INR 1.3 LAB COAGULATION METHOD 06/24/2025 12:[address] [facility] Blood Venous blood specimen / Unknown Venipuncture / Unknown 06/24/2025 8:17 AM EST 06/24/2025 11:14 AM EST us Yo Chambers MD LAB BLOOD ORDERABLES Final Result [facility] [address] [place] [address], [place] [phone] * (ABNORMAL) Lipid panel with reflex to direct LDL (06/10/2025 7:36 AM EDT) [facility] Cholesterol 180 0 - 200 mg/dL LAB CHEMISTRY METHOD 06/10/2025 1:[address] [facility] Triglycerides 146 0 - 150 mg/dL LAB [facility] HDL 42 >=40 mg/dL LAB CHEMISTRY METHOD 06/10/2025 1:[address] [facility] LDL Calculated 109(H) 0 - 100 mg/dL LAB CHEMISTRY METHOD 06/10/2025 1:[address] [facility] Comment:Estimated LDL Calcul ated using equation: Total cholesterol - HDL cholesterol - (Triglycerides/5) VLDL Cholesterol Ancelmo 29.2 mg/dL LAB CHEMISTRY METHOD 06/10/2025 1:[address] [facility] Non HDL Chol. (LDL+VLDL) 138 <145 mg/dL LAB CHEMISTRY METHOD 06/10/2025 1:[address] [facility] Chol/HDL Ratio 4.3 0.0 - 4.4 LAB CHEMISTRY METHOD 06/10/2025 1:[address] [facility] Blood Venous blood specimen / Unknown Venipuncture / Unknown 06/10/2025 7:36 AM EDT 06/10/2025 11:35 AM EDT us Yo Chambers MD LAB BLOOD ORDERABLES Final Result [facility] [address] [place] [address], * (ABNORMAL) Complete blood count (06/10/2025 7:36 AM EDT) WBC 4.5(L) 4.8 - 10.8 K/mcL LAB HEMETOLOGY METHOD 06/10/2025 1:[address] [facility] RBC 3.80 3.80 - 4.80 M/[facility] LAB HEMETOLOGY METHOD 06/10/2025 1:[address] [facility] Hemoglobin 11.9 11.5 - 16.0 g/dL LAB HEMETOLOGY METHOD 06/10/2025 1:[address] [facility] Hematocrit 37.6 35.0 - 47.0 % LAB HEMETOLOGY METHOD 06/10/2025 1:[address] [facility] MCV 100.3(H) 79.0 - 98.0 FL LAB HEMETOLOGY METHOD 06/10/2025 1:[address] [facility] MCH 31.7 27.0 - 32.0 pcg LAB HEMETOLOGY METHOD 06/10/2025 1:[address] [facility] MCHC 31.6(L) 32.0 - 37.0 g/dL LAB HEMETOLOGY METHOD 06/10/2025 1:[address] [facility] RDW 15.1(H) 11.0 - 15.0 % LAB HEMETOLOGY METHOD 06/10/2025 1:[address] [facility] Platelets 205 130 - 400 K/mcL LAB HEMETOLOGY METHOD 06/10/2025 1:[address] [facility] MPV 10.6 7.0 - 11.0 FL LAB HEMETOLOGY METHOD 06/10/2025 1:[address] [facility] NRBC 0.0 <1.0 % LAB HEMETOLOGY METHOD 06/10/2025 1:[address] [facility] NRBC Absolute 0.00 <0.10 K/mcL LAB HEMETOLOGY METHOD 06/10/2025 1:[address] [facility] Blood Venous blood specimen / Unknown Venipuncture / Unknown 06/10/2025 7:36 AM EDT 06/10/2025 11:35 AM EDT Yo Chambers MD LAB BLOOD ORDERABLES Final Result [facility] [address] [place] [address], * (ABNORMAL) Comprehensive metabolic panel (06/10/2025 7:36 AM EDT) Sodium 143 133 - 145 mmol/L LAB CHEMISTRY METHOD 06/10/2025 1:[address] [facility] Potassium 4.1 3.5 - 5.5 mmol/L LAB CHEMISTRY METHOD 06/10/2025 1:52 PM [facility] Chloride 111(H) 96 - 110 mmol/L LAB CHEMISTRY METHOD 06/10/2025 1:52 PM [facility] CO2 28 21 - 32 mmol/L LAB CHEMISTRY METHOD 06/10/2025 1:[address] [facility] Anion Gap 4 3 - 11 LAB CHEMISTRY METHOD 06/10/2025 1:[address] [facility] Glucose 81 70 - 100 mg/dL LAB CHEMISTRY METHOD 06/10/2025 1:52 PM [facility] BUN 15 5 - 25 mg/dL LAB CHEMISTRY METHOD 06/10/2025 1:52 PM [facility] Creatinine 0.91 0.50 - 1.10 mg/dL LAB CHEMISTRY METHOD 06/10/2025 1:52 PM [facility] eGFR 66 >=60 mL/min/1. 73m2 LAB CHEMISTRY METHOD 06/10/2025 1:52 PM [facility] Comment:Calculation based on the Chronic Kidney Disease Epidemiology Collaboration (CKD-EPI) equation refit without adjustment for race. BUN/Creatinine Ratio 16.5 LAB CHEMISTRY METHOD 06/10/2025 1:52 PM [facility] Calcium 8.5 8.5 - 10.5 mg/dL LAB CHEMISTRY METHOD 06/10/2025 1:52 PM [facility] AST (SGOT) 24 10 - 42 unit/L LAB CHEMISTRY METHOD 06/10/2025 1:52 PM [facility] ALT (SGPT) 35 10 - 60 unit/L LAB CHEMISTRY METHOD 06/10/2025 1:52 PM [facility] Alkaline Phosphatase 102 42 - 121 unit/L LAB CHEMISTRY METHOD 06/10/2025 1:52 PM [facility] Total Protein 5.9(L) 6.0 - 8.0 g/dL LAB CHEMISTRY METHOD 06/10/2025 1:52 PM [facility] Albumin 2.8(L) 3.2 - 5.0 g/dL LAB CHEMISTRY METHOD 06/10/2025 1:52 PM [facility] Total Bilirubin 0.3 0.0 - 1.4 mg/dL LAB CHEMISTRY METHOD 06/10/2025 1:52 PM [facility] Blood Venous blood specimen / Unknown Venipuncture / Unknown 06/10/2025 7:36 AM EDT 06/10/2025 11:35 AM EDT Yo Chambers MD LAB BLOOD ORDERABLES Final Result [facility] [address] [place] [address], [place] [phone] from Last 3 Months Insurance MEDICARE MEDICAID - [place] Care Teams Electric Motor Repair Supervisor Relationship Specialty Start Date End Date Yo Chambers MD [address] [place] [address] PCP - General 05/19/21
--- OUTSIDE RECORDS SUMMARY | 2025-06-24 17:02 | XMS_ITS | Encounter Summary ---
Author Organization [facility] Address [address] [place] [address] Care Team Providers Care Sales Clerk Food Name Role Phone Yo Chambers MD Primary Care Provider +1- [phone] Encounter Details Date Type Department Care Team (Late st Contact Info) Description 04/06/2025 Lab Requisition [facility] [address] [place] [address] Yo Chambers MD [address] [place] [address] Unspecified atrial fibrillation (CMS/HCC V24, CMS/HCC V28) [...] Diagnosis Comments PROTHROMBIN TIME WITH INR Routine 04/08/2025 6:36 AM EDT Unspecified atrial fibrillation (CMS/HCC V24, CMS/HCC V28) documented in this encounter Results * (ABNORMAL) Prothrombin time with INR (04/08/2025 6:36 AM EDT) Protime 21.7(H) 10.6 - 13.9 sec LAB COAGULATION METHOD 04/08/2025 10:17 AM EDT [facility] INR 1.7 LAB COAGULATION METHOD 04/08/2025 10:17 AM EDT [facility] Blood Venous blood specimen / Unknown Venipuncture / Unknown 04/08/2025 6:36 AM EDT 04/08/2025 10:01 AM EDT us Yo Chambers MD LAB BLOOD ORDERABLES Final Result [facility] [address] [place] [address], documented in this encounter Visit Diagnoses Diagnosis Unspecified atrial fibrillation (CMS/HCC V24, CMS/HCC V28) documented in this encounter Care Teams Sales Clerk Food Relationship Specialty Start Date End Date Yo Chambers MD [address] [place] [id number] PCP - General 05/19/21 documented as of this encounter
--- OUTSIDE RECORDS SUMMARY | 2025-06-24 17:02 | XMS_ITS | Encounter Summary ---
Author Organization [facility] Address [address] [place] [address] Care Team Providers Care Store Facility Technician Name Role Phone Yo Chambers MD Primary Care Provider +1- [phone] Encounter Details Date Type Department Care Team (Late st Contact Info) Description 08/31/2024 Lab Requisition [facility] Lab [address] [place] [address] Yo Chambers MD [address] [place] [address] Unspecified atrial fibrillation (CMS/HCC V24, CMS/HCC V28) [...] LAB COAGULATION METHOD 09/03/2024 11:15 AM EST [facility] INR 2.4 LAB COAGULATION METHOD 09/03/2024 11:15 AM EST [facility] Blood Venous blood specimen / Unknown Venipuncture / Unknown 09/03/2024 6:46 AM EST 09/03/2024 10:53 AM EST Yo Chambers MD LAB BLOOD ORDERABLES Final Result [facility] [address] [place] [address], documented in this encounter Visit Diagnoses Diagnosis Unspecified atrial fibrillation (CMS/HCC V24, CMS/HCC V28) documented in this encounter Additional Health Concerns Infection Onset Date Last Indicated Resolved Time Influenza 10/07/2024 10/07/2024 10/31/2024 7:06 PM EDT Respiratory Rule-Out 10/08/2024 10/07/2024 025 2:58 PM EST documented as of this encounter Care Teams Store Facility Technician Relationship Specialty Start Date End Date Yo Chambers MD [address] [place] [id number] PCP - General 05/19/21 documented as of this encounter
== END 2025-06-24 15:58 | disposition home or self-care (01) ==
LOC: HO.HAP 15:57
PROVIDERS: Visit Provider Internal Medicine
DX: Z46.1 Encounter for fitting and adjustment of hearing aid (principal); H90.3 Sensorineural hearing loss, bilateral
CPT/HCPCS: V5266